=== PATIENT | male | born 1950 | race Caucasian/White ===

== ENCOUNTER → 2017-08-30 | Outpatient (CLI) | payer MEDICARE ==
[2017-08-30 19:52] LABS: Basophils # (A) 0.1 k/uL (0-0.2); Basophils % (A) 1 %; Eosinophils # (A) 0.2 k/uL (0-0.7); Eosinophils % (A) 4 %; HGB 13.8 gm/dL (13.0-17.5); Hypochromasia Slight; Lymphocytes % (A) 19 %; MCH 29.8 pg (25.0-35.0); MCHC 31.4 g/dL (31.0-37.0); MCV 94.9 fL (80.0-100.0); Mean Platelet Volume 8.2; Monocytes # (A) 0.4 k/uL (0-1.0); Monocytes % (A) 7 %; Neutrophils # (A) 3.7 k/uL (1.3-7.7); Neutrophils % (A) 67 %; Platelet Count 162 k/uL (150-450); RBC 4.63 m/uL (4.30-5.90); RDW 14.3 % (11.5-15.5); WBC 5.6 k/uL (3.8-10.6)
[2017-08-30 20:02] LABS: ALT 47 U/L (21-72); AST 27 U/L (17-59); Albumin 3.5 g/dL (3.5-5.0); Alkaline Phosphatase 82 U/L (38-126); Blood Urea Nitrogen 31 mg/dL (9-20); Calcium 9.1 mg/dL (8.4-10.2); Chloride 99 mmol/L (98-107); Cholesterol 191 mg/dL (<200); Glucose 84 mg/dL (74-99); HDL Cholesterol 48 mg/dL (40-60); LDL Cholesterol,Calculated 95 mg/dL (0-99); Potassium 4.4 mmol/L (3.5-5.1); Sodium 149 mmol/L (137-145); Total Bilirubin 0.3 mg/dL (0.2-1.3); Total Protein 5.9 g/dL (6.3-8.2); Triglycerides 242 mg/dL (<150)
[2017-08-30 20:06] LABS: INR 1.5 (<1.2)
[2017-08-30 20:07] LABS: Prothrombin Time 14.1 sec (9.0-12.0)
[2017-08-30 20:10] LABS: Anion Gap 8 mmol/L
[2017-08-30 20:18] LABS: T4, Free (Free Thyroxine) 1.05 ng/dL (0.78-2.19)
[2017-08-30 20:22] LABS: Carbon Dioxide 42 mmol/L (22-30)
[2017-08-30 20:32] LABS: PSA Annual Screen 4.13 ng/mL (0.00-4.00)
[2017-08-31 11:36] LABS: Vitamin D 25 Hydroxy 9.3 ng/mL (30.0-100.0)
== END | disposition home or self-care (01) ==
LOC: MMGSC 15:49
PROVIDERS: ATTEND Family Medicine
DX: E78.5 Hyperlipidemia, unspecified (principal); I10 Essential (primary) hypertension; I25.10 Atherosclerotic heart disease of native coronary artery without angina pectoris; R53.83 Other fatigue; Z12.5 Encounter for screening for malignant neoplasm of prostate; Z51.81 Encounter for therapeutic drug level monitoring; Z79.01 Long term (current) use of anticoagulants
CPT/HCPCS: 84439; 80053; 80061; 82607; 84443; 85025; 85610; 82306; 36415; G0103

== ENCOUNTER → 2017-09-05 | Outpatient (CLI) | payer MEDICARE ==
[2017-09-05 18:51] LABS: INR 2.6 (<1.2); Prothrombin Time 23.3 sec (9.0-12.0)
== END | disposition home or self-care (01) ==
LOC: MMGSC 15:04
PROVIDERS: ATTEND Family Medicine
DX: Z51.81 Encounter for therapeutic drug level monitoring (principal); Z79.01 Long term (current) use of anticoagulants
CPT/HCPCS: 36415; 85610

== ENCOUNTER → 2017-10-03 | Outpatient (CLI) | payer MEDICARE ==
[2017-10-03 19:00] LABS: INR 3.9 (<1.2); Prothrombin Time 34.6 sec (9.0-12.0)
== END | disposition home or self-care (01) ==
LOC: MMGSC 15:42
PROVIDERS: ATTEND Family Medicine
DX: Z51.81 Encounter for therapeutic drug level monitoring (principal); Z79.01 Long term (current) use of anticoagulants
CPT/HCPCS: 36415; 85610

== ENCOUNTER → 2017-10-11 | Outpatient (CLI) | payer MEDICARE ==
[2017-10-11 18:47] LABS: INR 1.8 (<1.2); Prothrombin Time 16.2 sec (9.0-12.0)
== END | disposition home or self-care (01) ==
LOC: MMGSC 14:50
PROVIDERS: ATTEND Family Medicine
DX: Z51.81 Encounter for therapeutic drug level monitoring (principal); Z79.01 Long term (current) use of anticoagulants
CPT/HCPCS: 36415; 85610

== ENCOUNTER → 2017-11-01 | Outpatient (CLI) | payer MEDICARE ==
[2017-11-01 19:47] LABS: INR 1.8 (<1.2); Prothrombin Time 16.2 sec (9.0-12.0)
[2017-11-01 19:53] LABS: Basophils # (A) 0.1 k/uL (0-0.2); Basophils % (A) 1 %; Eosinophils # (A) 0.2 k/uL (0-0.7); Eosinophils % (A) 3 %; HCT 45.7 % (39.0-53.0); HGB 15.3 gm/dL (13.0-17.5); Lymphocytes # (A) 1.3 k/uL (1.0-4.8); Lymphocytes % (A) 18 %; MCH 30.5 pg (25.0-35.0); MCHC 33.5 g/dL (31.0-37.0); Mean Platelet Volume 7.9; Monocytes # (A) 0.5 k/uL (0-1.0); Monocytes % (A) 7 %; Neutrophils # (A) 5.1 k/uL (1.3-7.7); Neutrophils % (A) 71 %; Platelet Count 185 k/uL (150-450); RBC 5.02 m/uL (4.30-5.90); RDW 13.4 % (11.5-15.5); WBC 7.3 k/uL (3.8-10.6)
[2017-11-01 19:55] LABS: Albumin 3.9 g/dL (3.5-5.0); Calcium 9.2 mg/dL (8.4-10.2); Potassium 4.2 mmol/L (3.5-5.1); Total Bilirubin 0.3 mg/dL (0.2-1.3); Total Protein 6.5 g/dL (6.3-8.2)
== END | disposition home or self-care (01) ==
LOC: MMGSC 17:29
PROVIDERS: ATTEND Family Medicine
DX: N39.0 Urinary tract infection, site not specified (principal); E55.9 Vitamin D deficiency, unspecified; E87.0 Hyperosmolality and hypernatremia; Z79.01 Long term (current) use of anticoagulants
CPT/HCPCS: 36415; 80053; 82306; 85025; 85610; 87086

== ENCOUNTER → 2017-11-27 | Outpatient (CLI) | payer MEDICARE ==
--- NOTE | 2017-11-27 11:27 | US ---
EXAMINATION TYPE: US carotid duplex BILAT DATE OF EXAM: 11/27/2017 COMPARISON: NONE CLINICAL HISTORY: 67-year-old male dizziness R42 Hx of CAD Z86.79. Pt having dizziness TECHNIQUE: Carotid duplex ultrasound examination. Indirect Doppler criteria was utilized. 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 IMPRESSION: 1. No hemodynamically significant ICA stenosis on either side. Mild narrowing may be present particul sania on the right. 2. Incidental 1.5 cm left thyroid nodule. Further assessment of the entire thyroid gland can be perfo rmed with dedicated thyroid ultrasound. Criteria for Assigning % of Stenosis / Diameter reduction (Estimation based on the indirect measurements of the internal carotid artery velocities (ICA PSV). 1. Normal (no stenosis)=ICA PSV < 125 cm/s: ratio < 2.0: ICA EDV<40 cm/s. 2. Less than 50% stenosis=ICA PSV < 125 cm/s: ratio < 2.0: ICA EDV<40 cm/s. 3. 50 to 69% stenosis=ICA PSV of 125 to 230 cm/s: ration 2.0 ? 4.0: ICA EDV 40-100 cm/s. 4. Greater than 70% stenosis to near occlusion= ICA PSV > 230 cm/s: ratio > 4.0: ICA EDV > 100 cm/s. 5. Near occlusion= ICA PSV velocities may be low or undetectable: variable ratio and ICA EDV. 6. Total occlusion=unable to detect flow.
== END | disposition home or self-care (01) ==
LOC: WWCWWP 10:11
PROVIDERS: ATTEND Family Medicine
DX: R42 Dizziness and giddiness (principal); Z86.79 Personal history of other diseases of the circulatory system
CPT/HCPCS: 93880

== ENCOUNTER 2017-12-08 21:58 | Observation (INO) | payer MEDICARE ==
[2017-12-08] MEDS ORDERED: NITROGLYCERIN OINT 1 INCH/GM PACKET TOPICAL STA (22:10)
[2017-12-08] MEDS ORDERED: ASPIRIN 81 MG PO STA (22:10)
--- NOTE | 2017-12-08 22:14 | ED ---
General Adult HPI - General Chief complaint: Chest Pain Stated complaint: Chest Pain Time Seen by Provider: 12/08/17 22:10 Source: patient, family, EMS, RN notes reviewed Mode of arrival: EMS Limitations: no limitations - History of Present Illness Initial comments: Patient is a pleasant 67-year-old male presenting to the emergency Department with chest discomfort. Onset of symptoms was just prior to arrival. Symptoms resolved with nitroglycerin by EMS. Patient does have a history of similar symptoms previously associated with cardiac disease. Patient did have some associated nausea. No dyspnea or diaphoresis. Patient is currently symptom- free. - Related Data Home Medications Medication Instructions Recorded Confirmed Aspirin 81 mg PO DAILY 12/08/17 12/08/17 Atorvastatin [Lipitor] 80 mg PO HS 12/08/17 12/08/17 Benztropine Mesylate [Cogentin] 1 mg PO DAILY 12/08/17 12/08/17 Carvedilol [Coreg] 12.5 mg PO BID 12/08/17 12/08/17 Finasteride [Proscar] 5 mg PO DAILY 12/08/17 12/08/17 Furosemide [Lasix] 40 mg PO DAILY 12/08/17 12/08/17 Glimepiride [Amaryl] 2 mg PO AC-BRKFST 12/08/17 12/08/17 Isosorbide Mononitrate ER [Imdur] 60 mg PO DAILY 12/08/17 12/08/17 Oxybutynin Chloride [Ditropan] 5 mg PO DAILY 12/08/17 12/08/17 Pantoprazole [Protonix] 40 mg PO QAM 12/08/17 12/08/17 Potassium Chloride [Klor-Con 20] 20 meq PO DAILY 12/08/17 12/08/17 QUEtiapine [SEROquel] 100 mg PO HS 12/08/17 12/08/17 Tamsulosin [Flomax] 0.4 mg PO DAILY 12/08/17 12/08/17 Warfarin [Coumadin] 5 mg PO DAILY 12/08/17 12/08/17 carBAMazepine [TEGretol XR] 200 mg PO Q12H 12/08/17 12/08/17 hydrALAZINE HCL [Apresoline] 50 mg PO TID 12/08/17 12/08/17 Allergies Allergy/AdvReac Type Severity Reaction Status Date / Time No Known Allergies Allergy Verified 12/08/17 22:50 Review of Systems ROS Statement: Those systems with pertinent positive or pertinent negative responses have been documented in the HPI. ROS Other: All systems not noted in ROS Statement are negative. Constitutional: Denies: fever Eyes: Denies: eye pain ENT: Denies: ear pain Respiratory: Denies: dyspnea Cardiovascular: Reports: chest pain Endocrine: Denies: fatigue Gastrointestinal: Reports: nausea. Denies: abdominal pain Genitourinary: Denies: dysuria, frequency Musculoskeletal: Denies: back pain (Chronic and unchanged) Skin: Denies: rash Neurological: Denies: weakness Past Medical History Past Medical History: Asthma, Diabetes Mellitus, Hypertension History of Any Multi-Drug Resistant Organisms: MRSA MDRO Source:: lungs Past Surgical History: Heart Catheterization With Stent Past Psychological History: Anxiety, Bipolar, Depression Smoking Status: Former smoker Past Alcohol Use History: Occasional Past Drug Use History: None Reported General Exam Limitations: no limitations General appearance: alert, in no apparent distress Head exam: Present: atraumatic Eye exam: Present: normal appearance, PERRL ENT exam: Present: normal oropharynx Neck exam: Present: normal inspection Respiratory exam: Present: normal lung sounds bilaterally. Absent: chest wall tenderness Cardiovascular Exam: Present: regular rate, normal rhythm Expanded Peripheral pulses: 2+: Radial (R), Radial (L), Posterior Tibialis (R), Posterior Tibialis (L) GI/Abdominal exam: Present: soft. Absent: distended, tenderness Extremities exam: Present: normal inspection. Absent: pedal edema, calf tenderness Back exam: Present: normal inspection Neurological exam: Present: alert Psychiatric exam: Present: normal affect, normal mood Skin exam: Present: normal color Course Vital Signs 12/08/17 12/08/17 22:03 23:07 Temperature 99.1 F Pulse Rate 94 86 Respiratory 20 20 Rate Blood Pressure 162/91 165/85 O2 Sat by Pulse 97 97 Oximetry EKG Findings - EKG Comments: EKG Findings:: Normal sinus rhythm 83. HI 182. QRS 78. QT 398. QTC 467. Left axis. Septal Q waves. Inferior Q waves. No acute ST change. Medical Decision Making - Medical Decision Making Patient reevaluated and updated. Case discussed with Dr. Gonzales, who will admit for Dr. Parks. - Lab Data Result diagrams: 12/08/17 22:06 12/08/17 22:06 Lab Results 12/08/17 12/08/17 12/08/17 Range/Units 22:06 22:06 22:06 WBC 9.4 (3.8-10.6) k/uL RBC 5.02 (4.30-5.90) m/uL Hgb 14.7 (13.0-17.5) gm/dL Hct 44.6 (39.0-53.0) % MCV 88.9 (80.0-100.0) fL MCH 29.4 (25.0-35.0) pg MCHC 33.1 (31.0-37.0) g/dL RDW 13.3 (11.5-15.5) % Plt Count 207 (150-450) k/uL Neutrophils % 70 % Lymphocytes % 18 % Monocytes % 6 % Eosinophils % 4 % Basophils % 0 % Neutrophils # 6.6 (1.3-7.7) k/uL Lymphocytes # 1.7 (1.0-4.8) k/uL Monocytes # 0.6 (0-1.0) k/uL Eosinophils # 0.4 (0-0.7) k/uL Basophils # 0.0 (0-0.2) k/uL PT (9.0-12.0) sec INR (<1.2) APTT (22.0-30.0) sec Sodium 143 (137-145) mmol/L Potassium 3.7 (3.5-5.1) mmol/L Chloride 94 L (98-107) mmol/L Carbon Dioxide 36 H (22-30) mmol/L Anion Gap 13 mmol/L BUN 30 H (9-20) mg/dL Creatinine 1.20 (0.66-1.25) mg/dL Est GFR (CKD-EPI)AfAm 72 (>60 ml/min/1.73 sqM) Est GFR (CKD-EPI)NonAf 62 (>60 ml/min/1.73 sqM) Glucose 117 H (74-99) mg/dL Plasma Lactic Acid Gil (0.7-2.0) mmol/L Calcium 9.2 (8.4-10.2) mg/dL Magnesium 1.5 L (1.6-2.3) mg/dL Total Bilirubin 0.5 (0.2-1.3) mg/dL AST 34 (17-59) U/L ALT 30 (21-72) U/L Alkaline Phosphatase 102 (38-126) U/L Total Creatine Kinase 142 (55-170) U/L CK-MB (CK-2) 1.8 (0.0-2.4) ng/mL CK-MB (CK-2) Rel Index 1.3 Troponin I <0.012 (0.000-0.034) ng/mL Total Protein 6.3 (6.3-8.2) g/dL Albumin 4.0 (3.5-5.0) g/dL 12/08/17 12/08/17 Range/Units 22:06 22:06 WBC (3.8-10.6) k/uL RBC (4.30-5.90) m/uL Hgb (13.0-17.5) gm/dL Hct (39.0-53.0) % MCV (80.0-100.0) fL MCH (25.0-35.0) pg MCHC (31.0-37.0) g/dL RDW (11.5-15.5) % Plt Count (150-450) k/uL Neutrophils % % Lymphocytes % % Monocytes % % Eosinophils % % Basophils % % Neutrophils # (1.3-7.7) k/uL Lymphocytes # (1.0-4.8) k/uL Monocytes # (0-1.0) k/uL Eosinophils # (0-0.7) k/uL Basophils # (0-0.2) k/uL PT 13.5 H (9.0-12.0) sec INR 1.5 H (<1.2) APTT 25.9 (22.0-30.0) sec Sodium (137-145) mmol/L Potassium (3.5-5.1) mmol/L Chloride (98-107) mmol/L Carbon Dioxide (22-30) mmol/L Anion Gap mmol/L BUN (9-20) mg/dL Creatinine (0.66-1.25) mg/dL Est GFR (CKD-EPI)AfAm (>60 ml/min/1.73 sqM) Est GFR (CKD-EPI)NonAf (>60 ml/min/1.73 sqM) Glucose (74-99) mg/dL Plasma Lactic Acid Gil 0.9 (0.7-2.0) mmol/L Calcium (8.4-10.2) mg/dL Magnesium (1.6-2.3) mg/dL Total Bilirubin (0.2-1.3) mg/dL AST (17-59) U/L ALT (21-72) U/L Alkaline Phosphatase (38-126) U/L Total Creatine Kinase (55-170) U/L CK-MB (CK-2) (0.0-2.4) ng/mL CK-MB (CK-2) Rel Index Troponin I (0.000-0.034) ng/mL Total Protein (6.3-8.2) g/dL Albumin (3.5-5.0) g/dL - Radiology Data Radiology results: image reviewed (Chest x-ray shows no acute process) Disposition Clinical Impression: Chest pain Disposition: ADMITTED IP TO THIS HOSP Is patient prescribed a controlled substance at d/c from ED?: No Referrals: Cintia Sarmiento MD [Primary Care Provider] - 1-2 days Decision Time: 00:08
[2017-12-08 22:27] LABS: Basophils % (A) 0 %; Eosinophils # (A) 0.4 k/uL (0-0.7); Eosinophils % (A) 4 %; HCT 44.6 % (39.0-53.0); HGB 14.7 gm/dL (13.0-17.5); Lymphocytes # (A) 1.7 k/uL (1.0-4.8); Lymphocytes % (A) 18 %; MCH 29.4 pg (25.0-35.0); MCHC 33.1 g/dL (31.0-37.0); MCV 88.9 fL (80.0-100.0); Mean Platelet Volume 7.6; Monocytes # (A) 0.6 k/uL (0-1.0); Monocytes % (A) 6 %; Neutrophils # (A) 6.6 k/uL (1.3-7.7); Neutrophils % (A) 70 %; Platelet Count 207 k/uL (150-450); RBC 5.02 m/uL (4.30-5.90); RDW 13.3 % (11.5-15.5); WBC 9.4 k/uL (3.8-10.6)
[2017-12-08 22:34] LABS: Calcium 9.2 mg/dL (8.4-10.2); Magnesium 1.5 mg/dL (1.6-2.3); Potassium 3.7 mmol/L (3.5-5.1); Total Bilirubin 0.5 mg/dL (0.2-1.3); Total Protein 6.3 g/dL (6.3-8.2)
[2017-12-08 22:37] LABS: INR 1.5 (<1.2); Partial Thromboplastin Time 25.9 sec (22.0-30.0); Prothrombin Time 13.5 sec (9.0-12.0)
--- NOTE | 2017-12-08 22:52 | XR ---
EXAMINATION TYPE: XR chest 2V DATE OF EXAM: 12/08/2017 COMPARISON: NONE HISTORY: Chest pain TECHNIQUE: Frontal and lateral views of the chest are obtained. FINDINGS: There is no heart failure nor confluent pneumonic infiltrate. Costophrenic angles are demario r. Heart appears slightly enlarged. There are chest leads. Bony thorax is intact. IMPRESSION: No active cardiopulmonary disease.
[2017-12-08 22:53] LABS: Creatine Kinase 142 U/L (55-170)
[2017-12-08 23:04] LABS: Creatine Kinase MB 1.8 ng/mL (0.0-2.4); Troponin I <0.012 ng/mL (0.000-0.034)
[2017-12-09] MEDS ORDERED: NITROGLYCERIN SL TABS 0.4 MG TAB SUBLINGUAL PRN (00:08)
[2017-12-09 02:03] VITALS: BMI 33.8
[2017-12-09] MEDS ORDERED: MAGNESIUM SULFATE-D5W PMX 1 GM in DEXTROSE/WATER 1 100ML.BAG IVPB ONE (02:59)
[2017-12-09 03:48] LABS: Creatine Kinase 189 U/L (55-170)
--- NOTE | 2017-12-09 03:59 | P.HPIM ---
History of Present Illness H&P Date: 12/09/17 Chief Complaint: Chest pain 67-year-old male with history of CAD. Patient presented to the hospital due to sudden onset chest pain. He reports that he was cleaning an accident in the bathroom when suddenly felt felt retrosternal chest pressure rated at 10 out of 10 in severity radiating to his neck and shoulder associated with trouble breathing, diaphoresis, nausea and vomiting once. He initially rested in the bathroom but then was able to gather himself and get to the living room. He then put on his oxygen and started watching his pulse oximetry as he thought this is lack of oxygen, and took some aspirin but he did not get complete relief of his pain until EMS arrived and gave him nitro paste. This lasted for 20 minutes. This was not his first episode he said he had other episodes in the past however he was not keen enough to go over details. He does admit to orthopnea and paroxysmal nocturnal dyspnea but denies any leg swelling. He is oxygen dependent and uses 3 L of oxygen through nasal cannula for his history of COPD. Otherwise patient is denying any coughing, wheezing, fevers or chills. 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 Review of Systems Constitutional: Patient denies fever, denies chills, denies night sweating, denies significant weight changes Eyes: Patient denies visual changes, denies eye pain ENT: Patient denies ear pain, denies rhinorrhea, denies sore throat Cardiovascular: As per HPI Respiratory:Patient denies cough, denies wheezing Gastrointestinal: Patient denies diarrhea, reports constipation, denies abdominal pain Genitourinary: Patient denies dysuria, denies hematuria, reports difficulty with urination due to prostate issues, denies genital lesions Musculoskeletal: Patient denies muscle pain, denies joint pain Psychiatric: Patient reports depressed mood, denies suicidal ideation, denies anxiety Endocrine: Patient denies heat intolerance, denies cold intolerance, denies excessive thirst, denies polyuria Neurological: Patient denies focal neurologic deficits, denies weakness, denies numbness, denies tingling Hem/Lymphatic: Patient denies bleeding tendency, denies bruising, denies swollen lymph glands Allergic/Immun: Patient denies recent allergic reactions Skin: Patient denies rashes, denies pruritis, denies ulcers Past Medical History Past Medical History: Heart Failure, COPD, Diabetes Mellitus, Deep Vein Thrombosis (DVT), Hyperlipidemia, Hypertension, Memory Impairment, Osteoarthritis (OA), Pneumonia, Prostate Disorder, Pulmonary Embolus (PE), Sleep Apnea/CPAP/BIPAP Additional Past Medical History / Comment(s): DVT and PE - pt unsure of how long ago - he is on coumadin History of Any Multi-Drug Resistant Organisms: MRSA Date of last positivie culture/infection: unsure thinks 2-3 years ago MDRO Source:: lungs/legs Past Surgical History: Heart Catheterization With Stent Additional Past Surgical History / Comment(s): 1 stent - pt unsure of exact year thinks over 5 yrs ago - pt states done at [facility] Past Anesthesia/Blood Transfusion Reactions: No Reported Reaction Date of Last Stent Placement:: unsure Past Psychological History: Anxiety, Bipolar, Depression Smoking Status: Former smoker Past Alcohol Use History: Rare Additional Past Alcohol Use History / Comment(s): pt states started smoking as a kid cant remember exactly when or exactly when quit - poor historian Past Drug Use History: None Reported - Past Family History Mother Family Medical History: Myocardial Infarction (ME) Father Family Medical History: Renal Disease Additional Family Medical History / Comment(s): renal disease Medications and Allergies Home Medications Medication Instructions Recorded Confirmed Type Aspirin 81 mg PO DAILY 12/08/17 12/08/17 History Atorvastatin [Lipitor] 80 mg PO HS 12/08/17 12/08/17 History Benztropine Mesylate [Cogentin] 1 mg PO DAILY 12/08/17 12/08/17 History Carvedilol [Coreg] 12.5 mg PO BID 12/08/17 12/08/17 History Finasteride [Proscar] 5 mg PO DAILY 12/08/17 12/08/17 History Furosemide [Lasix] 40 mg PO DAILY 12/08/17 12/08/17 History Glimepiride [Amaryl] 2 mg PO AC-BRKFST 12/08/17 12/08/17 History Isosorbide Mononitrate ER [Imdur] 60 mg PO DAILY 12/08/17 12/08/17 History Oxybutynin Chloride [Ditropan] 5 mg PO DAILY 12/08/17 12/08/17 History Pantoprazole [Protonix] 40 mg PO QAM 12/08/17 12/08/17 History Potassium Chloride [Klor-Con 20] 20 meq PO DAILY 12/08/17 12/08/17 History QUEtiapine [SEROquel] 100 mg PO HS 12/08/17 12/08/17 History Tamsulosin [Flomax] 0.4 mg PO DAILY 12/08/17 12/08/17 History Warfarin [Coumadin] 5 mg PO DAILY 12/08/17 12/08/17 History carBAMazepine [TEGretol XR] 200 mg PO Q12H 12/08/17 12/08/17 History hydrALAZINE HCL [Apresoline] 50 mg PO TID 12/08/17 12/08/17 History Allergies Allergy/AdvReac Type Severity Reaction Status Date / Time No Known Allergies Allergy Verified 12/08/17 22:50 Physical Exam Vitals: Vital Signs Temp Pulse Pulse Resp BP BP Pulse Ox 12/09/17 01:30 98.5 F 90 16 162/85 95 12/09/17 00:50 98.7 F 88 18 177/81 97 12/09/17 00:00 98.6 F 82 20 168/82 95 12/08/17 23:07 86 20 165/85 97 12/08/17 22:03 99.1 F 94 20 162/91 97 Intake and Output 12/08/17 12/08/17 12/09/17 14:59 22:59 06:59 Other: Weight 95.254 kg 95.2 kg Constitutional: No acute distress, conversant, pleasant Eyes: Anicteric sclerae, moist conjunctiva, no lid-lag Pupils equal round reactive to light ENMT: NC/AT Oropharynx clear, no erythema, no exudates Neck: Supple, FROM, no masses, or JVD No carotid bruits No thyromegaly Lungs: Clear to auscultation Clear to percussion Normal respiratory effort, no accessory muscle use Nitro paste on his left side of the chest Cardiovascular: Heart regular in rate and rhythm, No murmurs, gallops, or rubs No peripheral edema Abdominal: Soft Nontender, no guarding, rebound or rigidity Abdomen moving with respiration Normoactive bowel sounds No hepatomegaly, No splenomegaly No palpable mass No abdominal wall hernia noted Skin: Large birthmark on anterior and posterior part of his left shoulder Normal temperature, tone, texture, turgor No induration No subcutaneous nodules No rash, lesions No ulcers Extremities: No digital cyanosis No clubbing Pedal pulses intact and symmetrical Radial pulses intact and symmetrical No calf tenderness Psychiatric: Alert and oriented to person, place Flat affect fair judgment Neuro Muscles Strength 5/5 in all 4 extremities Sensation to light touch grossly present throughout Cranial nerves II-XII grossly intact No focal sensory deficits Lymphatics: no palpable cervical or supraclavicular , or inguinal lymph nodes Results CBC & Chem 7: 12/08/17 22:06 12/08/17 22:06 Labs: Abnormal Lab Results - Last 24 Hours (Table) 12/08/17 12/08/17 Range/Units 22:06 22:06 PT 13.5 H (9.0-12.0) sec INR 1.5 H (<1.2) Chloride 94 L (98-107) mmol/L Carbon Dioxide 36 H (22-30) mmol/L BUN 30 H (9-20) mg/dL Glucose 117 H (74-99) mg/dL Magnesium 1.5 L (1.6-2.3) mg/dL Thrombosis Risk Factor Assmnt - Choose All That Apply Each Factor Represents 1 point: Abnormal pulmonary function (COPD) Each Risk Factor Represents 2 Points: Age 61-74 years Each Risk Factor Represents 3 Points: Family history of DVT/PE Thrombosis Risk Factor Assessment Total Risk Factor Score: 6 Thrombosis Risk Factor Assessment Level: High Risk Assessment and Plan Assessment: 67-year-old male with history of CAD, COPD oxygen dependent, presented to the hospital due to sudden onset chest pain while cleaning the bathroom. Chest pain is of typical features, and currently admitted under observation for cardiology evaluation. EKG revision suggested some Q waves(infarcts) and inferior and septal leads, however of unknown age there is no previous EKGs for comparison. Cardiac enzymes are negative so far Plan: #Typical chest pain Continue with Nitropaste Continue with aspirin and statin Continue home cardiac medications Cardiac monitoring Cycle cardiac enzymes Await cardiology input #Hypomagnesemia Replace IV and follow-up levels #Known history of CAD status post stents Continue home cardiac medications #History of multiple VTE Continue with Coumadin dosing by pharmacy Goal INR 2-3 #Chronic COPD on home oxygen 3 L through nasal cannula Continue with DuoNeb's when necessary Continue with home oxygen Chronic issues #Obstructive sleep apnea #Obesity #Hypertension #Diabetes mellitus #Depression #DVT prophylaxis Patient on Coumadin for history of DVT Surrogate decision-maker: Patient daughter Julisa CODE STATUS: Full code Discussed with: Patient, ER, RN Anticipated discharge: <[address]: Home A total of 55 minutes were spent on the care of this complex patient more than 50% of the time was spent in counseling and care coordination.
[2017-12-09 04:02] LABS: Creatine Kinase MB 1.5 ng/mL (0.0-2.4); Troponin I <0.012 ng/mL (0.000-0.034)
[2017-12-09] MEDS ORDERED: NALOXONE 0.4 MG/ML 1 ML VIAL IV PRN (04:02)
[2017-12-09] MEDS: NITROGLYCERIN OINT 1 INCH/GM PACKET TOPICAL SCH ×3 (05:25→18:08)
[2017-12-09] MEDS: IPRATROPIUM-ALBUTEROL 3 ML NEB INHALATION PRN ×4 (07:19→19:36)
[2017-12-09 07:34] LABS: Glucose,Whole Blood 127 mg/dL (75-99)
[2017-12-09 08:14] LABS: Cholesterol 200 mg/dL (<200); HDL Cholesterol 30 mg/dL (40-60); LDL Cholesterol,Calculated 127 mg/dL (0-99); Triglycerides 217 mg/dL (<150)
[2017-12-09] MEDS: INSULIN ASPART 100 UNIT/ML 1 ML 10 ML VIAL SQ SCH ×4 (08:44→21:13)
[2017-12-09] MEDS ORDERED: ISOSORBIDE MONONITRATE ER 60 MG TAB.ER.24H PO SCH (09:00)
--- NOTE | 2017-12-09 10:22 | P.CRDCN ---
History of Present Illness Consult date: 12/09/17 Requesting physician: Brook Maza Consult reason: chest pain Chief complaint: Nausea vomiting and chest pain History of present illness: As a 67-year-old gentleman with history of hypertension, hyperlipidemia, diabetes, coronary artery disease with prior stent placement, exact details of that are unavailable. He states he had a stent placed multiple years ago he thinks it was in the [place] area. Patient is not very clear in general on his history. He states that he presented to the hospital with symptoms of chest heaviness. According to the patient he had done some cleaning up, states that he had spilled some urine and was cleaning that up when he shortly became nauseated and started vomiting. Shortly thereafter he states that he had a heavy feeling in his chest, he felt mildly short of breath and diaphoretic and for this reason came to the emergency room for further evaluation. EKG shows normal sinus rhythm with inferior Q waves. Chest x-ray normal. CBC is normal. Sodium 143, potassium 3.7, BUN 30, creatinine 1.2. Troponins 2 have been negative, magnesium on admission 1.5, 1.6 this morning. Cholesterol 200 LDL 127 triglycerides 217 and HDL 30. At the time of my examination this morning, patient no longer has any chest discomfort, he is complaining of mild mid abdominal discomfort. Past Medical History Past Medical History: Heart Failure, COPD, Diabetes Mellitus, Deep Vein Thrombosis (DVT), Hyperlipidemia, Hypertension, Memory Impairment, Osteoarthritis (OA), Pneumonia, Prostate Disorder, Pulmonary Embolus (PE), Sleep Apnea/CPAP/BIPAP Additional Past Medical History / Comment(s): DVT and PE - pt unsure of how long ago - he is on coumadin History of Any Multi-Drug Resistant Organisms: MRSA Date of last positivie culture/infection: unsure thinks 2-3 years ago MDRO Source:: lungs/legs Past Surgical History: Heart Catheterization With Stent Additional Past Surgical History / Comment(s): 1 stent - pt unsure of exact year thinks over 5 yrs ago - pt states done at [facility] Past Anesthesia/Blood Transfusion Reactions: No Reported Reaction Date of Last Stent Placement:: unsure Past Psychological History: Anxiety, Bipolar, Depression Smoking Status: Former smoker Past Alcohol Use History: Rare Additional Past Alcohol Use History / Comment(s): pt states started smoking as a kid cant remember exactly when or exactly when quit - poor historian Past Drug Use History: None Reported - Past Family History Mother Family Medical History: Myocardial Infarction ([place]) Father Family Medical History: Renal Disease Additional Family Medical History / Comment(s): renal disease Medications and Allergies Home Medications Medication Instructions Recorded Confirmed Type Aspirin 81 mg PO DAILY 12/08/17 12/08/17 History Atorvastatin [Lipitor] 80 mg PO HS 12/08/17 12/08/17 History Benztropine Mesylate [Cogentin] 1 mg PO DAILY 12/08/17 12/08/17 History Carvedilol [Coreg] 12.5 mg PO BID 12/08/17 12/08/17 History Finasteride [Proscar] 5 mg PO DAILY 12/08/17 12/08/17 History Furosemide [Lasix] 40 mg PO DAILY 12/08/17 12/08/17 History Glimepiride [Amaryl] 2 mg PO AC-BRKFST 12/08/17 12/08/17 History Isosorbide Mononitrate ER [Imdur] 60 mg PO DAILY 12/08/17 12/08/17 History Oxybutynin Chloride [Ditropan] 5 mg PO DAILY 12/08/17 12/08/17 History Pantoprazole [Protonix] 40 mg PO QAM 12/08/17 12/08/17 History Potassium Chloride [Klor-Con 20] 20 meq PO DAILY 12/08/17 12/08/17 History QUEtiapine [SEROquel] 100 mg PO HS 12/08/17 12/08/17 History Tamsulosin [Flomax] 0.4 mg PO DAILY 12/08/17 12/08/17 History Warfarin [Coumadin] 5 mg PO DAILY 12/08/17 12/08/17 History carBAMazepine [TEGretol XR] 200 mg PO Q12H 12/08/17 12/08/17 History hydrALAZINE HCL [Apresoline] 50 mg PO TID 12/08/17 12/08/17 History Allergies Allergy/AdvReac Type Severity Reaction Status Date / Time No Known Allergies Allergy Verified 12/08/17 22:50 Physical Exam Vitals: Vital Signs Temp Pulse Pulse Resp BP BP Pulse Ox 12/09/17 08:00 98.2 F 81 14 166/79 97 12/09/17 07:31 83 12/09/17 07:20 80 97 12/09/17 04:00 98.0 F 78 16 144/72 97 12/09/17 01:30 98.5 F 90 16 162/85 95 12/09/17 00:50 98.7 F 88 18 177/81 97 12/09/17 00:00 98.6 F 82 20 168/82 95 12/08/17 23:07 86 20 165/85 97 12/08/17 22:03 99.1 F 94 20 162/91 97 Intake and Output 12/08/17 12/09/17 12/09/17 22:59 06:59 14:59 Other: Voiding Method Toilet Toilet Urinal Urinal # Voids 1 Weight 95.254 kg 95.8 kg PHYSICAL EXAMINATION: HEENT: Head is atraumatic, normocephalic. Pupils equal, round. Neck is supple. There is no elevated jugular venous pressure. HEART EXAMINATION: Heart S1, S2 normal. No murmur or gallop heard. CHEST EXAMINATION: Lungs are clear to auscultation and precussion. No chest wall tenderness is noted on palpation or with deep breathing. ABDOMEN: [ Soft, mild midepigastric tenderness . Bowel sounds are heard. No organomegaly noted]. EXTREMITIES:[ 2+ peripheral pulses with no evidence of peripheral edema and no calf tenderness noted]. NEUROLOGIC [patient is awake, alert and oriented -3.] . Results 12/08/17 22:06 12/08/17 22:06 Cardiac Enzymes 12/08/17 12/08/17 12/09/17 Range/Units 22:06 22:06 03:05 AST 34 (17-59) U/L CK-MB (CK-2) 1.8 1.5 (0.0-2.4) ng/mL Troponin I <0.012 <0.012 (0.000-0.034) ng/mL Coagulation 12/08/17 Range/Units 22:06 PT 13.5 H (9.0-12.0) sec APTT 25.9 (22.0-30.0) sec Lipids 12/09/17 Range/Units 03:05 Triglycerides 217 H (<150) mg/dL Cholesterol 200 H (<200) mg/dL HDL Cholesterol 30 L (40-60) mg/dL CBC 12/08/17 Range/Units 22:06 WBC 9.4 (3.8-10.6) k/uL RBC 5.02 (4.30-5.90) m/uL Hgb 14.7 (13.0-17.5) gm/dL Hct 44.6 (39.0-53.0) % Plt Count 207 (150-450) k/uL Comprehensive Metabolic Panel 12/08/17 Range/Units 22:06 Sodium 143 (137-145) mmol/L Potassium 3.7 (3.5-5.1) mmol/L Chloride 94 L (98-107) mmol/L Carbon Dioxide 36 H (22-30) mmol/L BUN 30 H (9-20) mg/dL Creatinine 1.20 (0.66-1.25) mg/dL Glucose 117 H (74-99) mg/dL Calcium 9.2 (8.4-10.2) mg/dL AST 34 (17-59) U/L ALT 30 (21-72) U/L Alkaline Phosphatase 102 (38-126) U/L Total Protein 6.3 (6.3-8.2) g/dL Albumin 4.0 (3.5-5.0) g/dL Current Medications Generic Name Dose Route Start Last Admin Trade Name Freq PRN Reason Stop Dose Admin Albuterol/Ipratropium 3 ml 12/09/17 03:40 12/09/17 07:19 Duoneb 0.5 Mg-3 Mg/3 Ml Soln INHALATION 3 ml RT-QID PRN Administration Shortness Of Breath Or Wheezing Aspirin 325 mg 12/10/17 09:00 Aspirin PO DAILY [facility] Atorvastatin Calcium 80 mg 12/09/17 21:00 Lipitor PO HS JR Benztropine Mesylate 1 mg 12/09/17 09:00 Cogentin PO DAILY JR Carbamazepine 200 mg 12/09/17 03:00 12/09/17 04:12 Tegretol Xr PO 200 mg Q12H JR Administration Carvedilol 12.5 mg 12/09/17 09:00 Coreg PO BID JR Finasteride 5 mg 12/09/17 09:00 Proscar PO DAILY [facility] Heparin Sodium (Porcine) 5,000 unit 12/09/17 08:00 Heparin SQ Q8HR [facility] Hydralazine HCl 50 mg 12/09/17 09:00 Apresoline PO TID [facility] Insulin Aspart 0 unit 12/09/17 07:30 12/09/17 08:44 Novolog SQ Not Given ACHS [facility] Protocol Miscellaneous Information 1 each 12/09/17 04:02 Coumadin Per Pharmacy MISCELLANE DIRECTED PRN protocol Naloxone HCl 0.2 mg 12/09/17 04:02 Narcan IV Q2M PRN Opioid Reversal Nitroglycerin 1 inch 12/09/17 06:00 12/09/17 05:25 Nitro-Bid Oint TOPICAL Not Given Q6HR [facility] Nitroglycerin 0.4 mg 12/09/17 00:08 Nitrostat SUBLINGUAL Q5M PRN Chest Pain Oxybutynin Chloride 5 mg 12/09/17 09:00 Ditropan PO DAILY [facility] Pantoprazole Sodium 40 mg 12/09/17 09:00 Protonix PO QAM [facility] Quetiapine Fumarate 100 mg 12/09/17 21:00 Seroquel PO HS [facility] Tamsulosin HCl 0.4 mg 12/09/17 09:00 Flomax PO DAILY [facility] Warfarin Sodium 7.5 mg 12/09/17 18:00 Coumadin PO 12/09/17 18:01 ONCE@1800 ONE Intake and Output 12/08/17 12/09/17 12/09/17 22:59 06:59 14:59 Other: Voiding Method Toilet Toilet Urinal Urinal # Voids 1 Weight 95.254 kg 95.8 kg 12/08/17 22:06 12/08/17 22:06 EKG Interpretations (text) EKG shows normal sinus rhythm with inferior Q waves. Assessment and Plan Plan: Assessment and plan #1 chest pain, atypical for acute coronary syndrome. Troponins negative 2. EKG shows normal sinus rhythm with inferior Q waves #2 hypertension #3 hyperlipidemia #4 diabetes # 5 coronary artery disease with prior stent placement, exact details unavailable. #6 history of DVT and PE, on Coumadin, patient is unsure of how long ago he was diagnosed with DVT and PE #7 COPD #8 sleep apnea Plan We will obtain an echocardiogram with Doppler study. Decrease aspirin to 81 mg daily, continue statin, Coreg, hydralazine, and Nitropaste. We will obtain a third troponin. If negative, from cardiology's perspective the patient may be able to be discharged home tomorrow and have a stress test as an outpatient. DNP note has been reviewed, I agree with a documented findings and plan of care. Patient was seen and examined.
[2017-12-09] MEDS: TAMSULOSIN 0.4 MG CAP.ER.24H PO SCH (10:48)
[2017-12-09] MEDS: CARVEDILOL 12.5 MG TAB PO SCH ×2 (10:48→20:31)
[2017-12-09] MEDS: BENZTROPINE MESYLATE 1 MG TAB PO SCH (10:48)
[2017-12-09] MEDS: HEPARIN SODIUM,PORCINE 5,000 UNIT/ML 1 ML VIAL SQ SCH ×2 (10:48→15:40)
[2017-12-09] MEDS: hydrALAZINE HCL 50 MG TAB PO SCH ×3 (10:48→20:31)
[2017-12-09] MEDS: FINASTERIDE 5 MG TAB PO SCH (10:48)
[2017-12-09] MEDS: OXYBUTYNIN CHLORIDE 5 MG TAB PO SCH (10:49)
[2017-12-09] MEDS: PANTOPRAZOLE 40 MG TABLET PO SCH (10:49)
[2017-12-09 11:21] LABS: Creatine Kinase MB 1.9 ng/mL (0.0-2.4); Troponin I 0.017 ng/mL (0.000-0.034)
--- NOTE | 2017-12-09 11:47 | P.PN ---
Progress Note - Text Progress Note Date: 12/09/17 Hospitalist Interval Note Patient seen and examined at bedside. He's not having any chest pain, shortness of breath, nausea, or vomiting. He states that yesterday he was going to the bathroom made a mess and bent over to clean it up. He wiped some on his face and then had chest pain associated with shortness of breath, diaphoresis, and nausea. He vomited 1. He has not had any recurrent shortness of breath since presenting to the emergency department. He states that he had a similar episode when he was in the assisted living. It appears that he was in an assisted-living for 17 months. He had gone there because his physician was concerned about him getting sick frequently. Apparently he left the assisted living due to financial reasons. He now up lives his own and his daughter gives him his medications. Vital signs reviewed General: non toxic, no distress, appears at stated age, obese Derm: warm, dry Head: atraumatic, normocephalic, symmetric Eyes: EOMI, no lid lag, anicteric sclera Mouth: no lip lesion, mucus membranes moist Cardiovascular: S1S2 reg, no murmur, positive posterior tibial pulse bilateral, Lungs: CTA bilateral, no rhonchi, no rales , no accessory muscle use Abdominal: soft, nontender to palpation, no guarding, no appreciable organomegaly Ext: no gross muscle atrophy, no edema, no contractures Neuro: CN II-XI grossly intact, no focal neuro deficits Psych: Alert, oriented, appropriate affect , slow thinking Assessment/Plan: Chest pain -Await repeat troponin -Nitropaste, aspirin, statin -Continue home cardiac meds -Cardiology recommendations appreciated, echocardiogram ordered -Continue with telemetry Hypomagnesemia -Repeat magnesium improved -Repeat magnesium in a.m. Known history of coronary artery disease status post stenting -Aspirin on discharge -Not chronically on Plavix but does take Coumadin -Lipitor, Coreg History of multiple venous thromboembolism -Coumadin therapy as dosed by pharmacy with a goal INR of 2-3 Chronic COPD with home oxygen use at 3 L nasal cannula -When necessary DuoNeb's -Oxygen Diabetes mellitus type 2 -Amaryl on hold -Insulin sliding scale -Check hemoglobin A1c BPH -Pro scar and Flomax Morbid obesity -Structured outpatient weight loss Chronic issues -MALLY -Obesity -Hypertension -Depression This is an update note for patient , for full note on 4/28 see H&P by Dr. Maza. There is no charge associated with this note.
[2017-12-09 11:58] LABS: Hemoglobin A1C 6.2 % (4.0-6.0)
[2017-12-09 11:59] LABS: Glucose,Whole Blood 204 mg/dL (75-99)
--- NOTE | 2017-12-09 14:10 | ECHOF ---
Referral Reason:chest pain MEASUREMENTS -------- HEIGHT: 167.6 cm WEIGHT: 95.7 kg BP: 166/79 IVSd: 1.2 cm (0.6 - 1.1) LVIDd: 3.6 cm (3.9 - 5.3) LVPWd: 1.3 cm (0.6 - 1.1) EDV(Teich): 54 ml IVSs: 1.6 cm LVIDs: 2.0 cm LVPWs: 1.8 cm ESV(Teich): 12 ml EF(Teich): 77 % %FS: 45 % SV(Teich): 42 ml RVIDd: 3.0 cm (< 3.3) LALs A4C: 6.0 cm LAAs A4C: 18.5 cm LAESV A-L A4C: 49 ml LAESV MOD A4C: 47 ml LALs A2C: 4.9 cm LAAs A2C: 14.3 cm LAESV A-L A2C: 35 ml LAESV MOD A2C: 33 ml LAESV(A-L): 46 ml LAESV Index (A-L): 22.27 ml/m Ao Diam: 3.6 cm (2.0 - 3.7) LA Diam: 3.9 cm (2.7 - 3.8) AV Cusp: 1.9 cm (1.5 - 2.6) MV E [place]: 0.59 m/s MV DecT: 311 ms MV Dec [place]: 1.9 m/s MV A [place]: 0.81 m/s MV E/A Ratio: 0.74 AV Vmax: 1.48 m/s AV maxP.71 mmHg TR Vmax: 1.54 m/s TR maxP.44 mmHg RAP: 5.00 mmHg RVSP: 14.44 mmHg FINDINGS -------- Sinus rhythm. This was a technically adequate study. The left ventricular size is normal. There is mild concentric left ventricular hypertrophy. Overa ll left ventricular systolic function is normal with, an EF between 55 - 60 %. The right ventricle is normal in size and function. Normal LA size by volume 22+/-6 ml/m2. The right atrium is normal in size. There is mild aortic valve sclerosis. There is no evidence of aortic regurgitation. There is no e vidence of aortic stenosis. Mild mitral annular calcification present. There is trace to mild mitral regurgitation. Trace tricuspid regurgitation present. Right ventricular systolic pressure is normal at < 35 mmHg. There is no evidence of pulmonary hypertension. The pulmonic valve was not well visualized. The aortic root size is normal. Normal inferior vena cava with normal inspiratory collapse consistent with estimated right atrial pre ssure of 5 mmHg. There is a small, generalized pericardial effusion present. CONCLUSIONS -------- 1. Sinus rhythm. 2. This was a technically adequate study. 3. The left ventricular size is normal. 4. There is mild concentric left ventricular hypertrophy. 5. Overall left ventricular systolic function is normal with, an EF between 55 - 60 %. 6. Normal LA size by volume 22+/-6 ml/m2. 7. There is mild aortic valve sclerosis. 8. Mild mitral annular calcification present. 9. There is trace to mild mitral regurgitation. 10. Trace tricuspid regurgitation present. 11. Right ventricular systolic pressure is normal at < 35 mmHg. 12. There is no evidence of pulmonary hypertension. 13. The pulmonic valve was not well visualized. 14. The aortic root size is normal. 15. There is a small, generalized pericardial effusion present. FISH CULTURIST: Britton Valentine RDCS
[2017-12-09 17:04] LABS: Glucose,Whole Blood 94 mg/dL (75-99)
[2017-12-09] MEDS ORDERED: WARFARIN 7.5 MG TAB PO ONE (18:00)
[2017-12-09] MEDS ORDERED: QUEtiapine 100 MG TAB PO SCH (21:00)
[2017-12-09] MEDS ORDERED: INSULIN DETEMIR 100 UNIT/ML 10 ML VIAL SQ SCH (21:00)
[2017-12-09] MEDS ORDERED: ATORVASTATIN 80 MG TAB PO SCH (21:00)
[2017-12-09 21:10] LABS: Glucose,Whole Blood 143 mg/dL (75-99)
[2017-12-10] MEDS: HEPARIN SODIUM,PORCINE 5,000 UNIT/ML 1 ML VIAL SQ SCH ×2 (02:50→08:48)
[2017-12-10] MEDS: NITROGLYCERIN OINT 1 INCH/GM PACKET TOPICAL SCH ×3 (02:51→13:16)
[2017-12-10 05:54] VITALS: RESP 16
[2017-12-10 06:52] LABS: Glucose,Whole Blood 98 mg/dL (75-99)
[2017-12-10 07:16] LABS: Basophils % (A) 1 %; Eosinophils # (A) 0.4 k/uL (0-0.7); Eosinophils % (A) 6 %; HCT 42.7 % (39.0-53.0); HGB 14.3 gm/dL (13.0-17.5); Lymphocytes # (A) 1.4 k/uL (1.0-4.8); Lymphocytes % (A) 21 %; MCH 30.3 pg (25.0-35.0); MCHC 33.5 g/dL (31.0-37.0); MCV 90.4 fL (80.0-100.0); Mean Platelet Volume 7.9; Monocytes # (A) 0.5 k/uL (0-1.0); Monocytes % (A) 7 %; Neutrophils # (A) 4.3 k/uL (1.3-7.7); Neutrophils % (A) 64 %; Platelet Count 154 k/uL (150-450); RBC 4.73 m/uL (4.30-5.90); RDW 13.2 % (11.5-15.5); WBC 6.7 k/uL (3.8-10.6)
[2017-12-10] MEDS: IPRATROPIUM-ALBUTEROL 3 ML NEB INHALATION PRN (07:25)
[2017-12-10 07:38] LABS: Potassium 4.1 mmol/L (3.5-5.1)
[2017-12-10] MEDS: INSULIN ASPART 100 UNIT/ML 1 ML 10 ML VIAL SQ SCH ×2 (08:45→13:16)
[2017-12-10] MEDS: CARVEDILOL 12.5 MG TAB PO SCH (08:49)
[2017-12-10] MEDS: hydrALAZINE HCL 50 MG TAB PO SCH (08:49)
[2017-12-10] MEDS: PANTOPRAZOLE 40 MG TABLET PO SCH (08:49)
[2017-12-10] MEDS: OXYBUTYNIN CHLORIDE 5 MG TAB PO SCH (08:49)
[2017-12-10] MEDS: BENZTROPINE MESYLATE 1 MG TAB PO SCH (08:49)
[2017-12-10] MEDS: TAMSULOSIN 0.4 MG CAP.ER.24H PO SCH (08:49)
[2017-12-10] MEDS: FINASTERIDE 5 MG TAB PO SCH (08:49)
[2017-12-10 08:58] LABS: INR 1.2 (<1.2); Prothrombin Time 11.7 sec (9.0-12.0)
[2017-12-10] MEDS ORDERED: ASPIRIN 325 MG TAB PO SCH (09:00)
[2017-12-10 12:12] LABS: Glucose,Whole Blood 100 mg/dL (75-99)
[2017-12-10 12:51] VITALS: BP 141/70; PULSE 65; TEMP 98
--- NOTE | 2017-12-10 13:12 | P.DS ---
Providers Date of admission: 12/09/17 00:09 Expected date of discharge: 12/10/17 Attending physician: Brook Maza MD Consults: 12/09/17 00:08 Consult Physician Urgent Consulting Provider: Gio Sanchez Consult Reason/Comments: cp Do you want consulting provider notified?: Yes Primary care physician: Cintia Sarmiento - Discharge Diagnosis(es) (1) Chest pain Current Visit: Yes Status: Acute (2) HLD (hyperlipidemia) Current Visit: Yes Status: Acute (3) HTN (hypertension) Current Visit: Yes Status: Acute (4) Bipolar disorder Current Visit: Yes Status: Acute (5) Urinary retention Current Visit: Yes Status: Acute (6) BPH (benign prostatic hyperplasia) Current Visit: Yes Status: Acute Hospital Course: Patient is a 67-year-old male with a past medical history of congestive heart failure, COPD coming DVT, dyslipidemia, hypertension, memory impairment, multiple thromboembolisms, and bipolar disorder who presented to the emergency department with complaints of chest pain. In the ER he underwent an extensive evaluation. Initial EKG did not show any significant ST-T wave changes. Initial blood pressure was slightly elevated at 162/91. Initial laboratory analysis was unremarkable with normal troponin. He was admitted as observation. He was seen by cardiology the next day he had had 2 negative troponins. Echocardiogram was ordered as well as his third troponin. Echocardiogram was within normal limits and third troponin was negative. Cardiology felt that he was appropriate for outpatient stress test. He was found have slight urinary retention about 300 mL. He already takes Proscar and Flomax at home. It was discussed with his daughter that he should follow up with urology as an outpatient. They've already been working on getting him into urology. He is very dependent on his family for all medications and help with groceries and he has meals on wheels. We will set him up with home health along with social work. I did discuss with the daughter that there may be an option for rides. Her insurance company to get to appointments. He was given an RX for prn nitro with verbal and written instructions to call 911 or his doctor if he needs to use nitro. D/W daughter plan of care. Patient seen and examined at bedside. No chest pain, SOB, nausea, or vomiting. Vital signs reviewed and stable. General: non toxic, no distress, appears at stated age Derm: warm, dry Head: atraumatic, normocephalic, symmetric Eyes: EOMI, no lid lag, anicteric sclera Mouth: no lip lesion, mucus membranes moist Cardiovascular: S1S2 reg, no murmur, positive posterior tibial pulse bilateral, Lungs: CTA bilateral, no rhonchi, no rales , no accessory muscle use Abdominal: soft, nontender to palpation, no guarding, no appreciable organomegaly Ext: no gross muscle atrophy, no edema, no contractures Neuro: CN II-XI grossly intact, no focal neuro deficits Psych: Alert, oriented, flat affect A total of 25 minutes of time were spent preparing this complex discharge summary . Pertinent Studies: Echo- EF 55-60%, mild concentric LVH CXR- NAP Patient Condition at Discharge: Stable Plan - Discharge Summary New Discharge Prescriptions: Continue hydrALAZINE HCL [Apresoline] 50 mg PO TID carBAMazepine [TEGretol XR] 200 mg PO Q12H Warfarin [Coumadin] 5 mg PO DAILY Carvedilol [Coreg] 12.5 mg PO BID Aspirin 81 mg PO DAILY Tamsulosin [Flomax] 0.4 mg PO DAILY QUEtiapine [SEROquel] 100 mg PO HS Potassium Chloride [Klor-Con 20] 20 meq PO DAILY Pantoprazole [Protonix] 40 mg PO QAM Oxybutynin Chloride [Ditropan] 5 mg PO DAILY Isosorbide Mononitrate ER [Imdur] 60 mg PO DAILY Glimepiride [Amaryl] 2 mg PO AC-BRKFST Furosemide [Lasix] 40 mg PO DAILY Finasteride [Proscar] 5 mg PO DAILY Benztropine Mesylate [Cogentin] 1 mg PO DAILY Atorvastatin [Lipitor] 80 mg PO HS Discharge Medication List Aspirin 81 mg PO DAILY 12/08/17 [History] Atorvastatin [Lipitor] 80 mg PO HS 12/08/17 [History] Benztropine Mesylate [Cogentin] 1 mg PO DAILY 12/08/17 [History] Carvedilol [Coreg] 12.5 mg PO BID 12/08/17 [History] Finasteride [Proscar] 5 mg PO DAILY 12/08/17 [History] Furosemide [Lasix] 40 mg PO DAILY 12/08/17 [History] Glimepiride [Amaryl] 2 mg PO AC-BRKFST 12/08/17 [History] Isosorbide Mononitrate ER [Imdur] 60 mg PO DAILY 12/08/17 [History] Oxybutynin Chloride [Ditropan] 5 mg PO DAILY 12/08/17 [History] Pantoprazole [Protonix] 40 mg PO QAM 12/08/17 [History] Potassium Chloride [Klor-Con 20] 20 meq PO DAILY 12/08/17 [History] QUEtiapine [SEROquel] 100 mg PO HS 12/08/17 [History] Tamsulosin [Flomax] 0.4 mg PO DAILY 12/08/17 [History] Warfarin [Coumadin] 5 mg PO DAILY 12/08/17 [History] carBAMazepine [TEGretol XR] 200 mg PO Q12H 12/08/17 [History] hydrALAZINE HCL [Apresoline] 50 mg PO TID 12/08/17 [History] Follow up Appointment(s)/Referral(s): Cintia Sarmiento MD [Primary Care Provider] - 1-2 days [facility], [NON-STAFF] -
[2017-12-10] MEDS ORDERED: WARFARIN 7.5 MG TAB PO ONE (18:00)
== END 2017-12-10 13:25 | disposition home health service (06) ==
LOC: EC 21:58 → 3OBS 12-09 00:09
PROVIDERS: ADMIT Internal Medicine; ATTEND Internal Medicine
DX: R07.89 Other chest pain (principal); J44.9 Chronic obstructive pulmonary disease, unspecified; I11.0 Hypertensive heart disease with heart failure; I50.9 Heart failure, unspecified; N40.1 Benign prostatic hyperplasia with lower urinary tract symptoms; R33.8 Other retention of urine; I25.10 Atherosclerotic heart disease of native coronary artery without angina pectoris; E83.42 Hypomagnesemia; E11.9 Type 2 diabetes mellitus without complications; F31.9 Bipolar disorder, unspecified; F41.9 Anxiety disorder, unspecified; Z99.81 Dependence on supplemental oxygen; G47.33 Obstructive sleep apnea (adult) (pediatric); Z95.5 Presence of coronary angioplasty implant and graft; E78.5 Hyperlipidemia, unspecified; E66.01 Morbid (severe) obesity due to excess calories; Z68.33 Body mass index [BMI] 33.0-33.9, adult; M19.90 Unspecified osteoarthritis, unspecified site; Z79.01 Long term (current) use of anticoagulants; Z79.82 Long term (current) use of aspirin; Z79.84 Long term (current) use of oral hypoglycemic drugs; Z79.899 Other long term (current) drug therapy; Z86.14 Personal history of Methicillin resistant Staphylococcus aureus infection; Z87.891 Personal history of nicotine dependence; Z86.718 Personal history of other venous thrombosis and embolism; Z86.711 Personal history of pulmonary embolism; Z82.49 Family history of ischemic heart disease and other diseases of the circulatory system; Z84.1 Family history of disorders of kidney and ureter
CPT/HCPCS: 99285 ×2; 93005 ×2; 96365; 96372 ×2; 36415; 94640 ×3; 94760; 93306; 80061; 80053; 80048; 82550 ×2; 82553 ×2; 83605; 83735 ×2; 84484 ×2; 85025 ×2; 85610 ×2; 85730; 83036; 71046; G0378 ×2; S0138 ×2; J1644 ×2; J3475

== ENCOUNTER → 2018-01-12 | Outpatient (CLI) | payer MEDICARE ==
[~2018-01-12] MED LIST: DOBUTamine DRIP for NUC MED 500 MG in DEXTROSE/WATER 1 250ML.BAG IV ONE
--- NOTE | 2018-01-12 10:49 | P.STRESS ---
- Stress Test Note Stress Test Results/Findings: Exam Performed: dobutamine stress echo with con Exam Date: 01/12/18 Reason for Exam: DIZZINESS Height: 5 ft 6 in Weight: 93.44 kg Protocol: DSE Stage: 40 MCG Duration of Exercise: 11 MIN Resting Heart Rate: 75 Resting Blood Pressure: 133/65 Maximum Achieved Heart Rate: 130 Maximum Achieved Blood Pressure: 178/46 85% PMHR: 130 100% PMHR: 153 METS: Technologist Comment: Stress Test Results/Findings: Baseline heart rate 75 beats a minute, Baseline blood pressure 133/65 mmHg The second twelve-lead ECG shows sinus rhythm with normal ST segments Patient received dobutamine infusion per protocol up to 40 g No ECG evidence of ischemia No arrhythmias Baseline 2-D echo images were suboptimal. Patient is on home oxygen Echo contrast was used Baseline 2-D echo images showed normal LV size and systolic function without segmental wall motion amenities There was a stepwise augmentation of overall LV contractility with increasing dobutamine infusion rates without development of any wall motion abdomen 30s At recovery regional and global LV systolic function remained normal Impression No ECG or echocardiographic evidence for ischemia
== END | disposition home or self-care (01) ==
LOC: RADNMMAIN 09:05
PROVIDERS: ATTEND Family Medicine
DX: R42 Dizziness and giddiness (principal); Z86.79 Personal history of other diseases of the circulatory system; I20.0 Unstable angina
CPT/HCPCS: C8930; J1250; Q9950; 93351

== ENCOUNTER 2018-11-13 09:49 | Inpatient (IN) | payer MEDICARE ==
[2018-11-13] MEDS ORDERED: SODIUM CHLORIDE 0.9% 1,000 ML IV ONE ×2 (10:40)
[2018-11-13 10:47] LABS: Glucose,Whole Blood 80 mg/dL (75-99)
--- NOTE | 2018-11-13 11:01 | ED ---
Altered Mental Status HPI - General Chief Complaint: Altered Mental Status Stated Complaint: ALTERED MENTAL STATUS X 4 DAYS Time Seen by Provider: 11/13/18 10:25 Source: patient, family, RN notes reviewed Mode of arrival: ambulatory Limitations: altered mental status - History of Present Illness Initial Comments: This is a 68-year-old male with a history of bipolar disorder history of a recent urinary tract infection with altered mental status changes secondary to the infection who is brought in today by family members with [place] recurrence of the same issues. He apparently has not been eating very well is been delusional he's been thinking that his house is infected his clothing is infected. He has been going on for the past 4 days ago worse last night. He demonstrated no overt fevers chills sweats no focal loss of function to his extremities. MD Complaint: confusion - Related Data Home Medications Medication Instructions Recorded Confirmed Aspirin 81 mg PO HS 12/08/17 11/13/18 Atorvastatin [Lipitor] 80 mg PO HS 12/08/17 11/13/18 Benztropine Mesylate [Cogentin] 1 mg PO DAILY 12/08/17 11/13/18 Carvedilol [Coreg] 12.5 mg PO DAILY 12/08/17 11/13/18 Finasteride [Proscar] 5 mg PO DAILY 12/08/17 11/13/18 Furosemide [Lasix] 40 mg PO DAILY 12/08/17 11/13/18 Glimepiride [Amaryl] 2 mg PO AC-BID 12/08/17 11/13/18 Isosorbide Mononitrate ER [Imdur] 60 mg PO BID 12/08/17 11/13/18 Oxybutynin Chloride [Ditropan] 5 mg PO DAILY 12/08/17 11/13/18 Pantoprazole [Protonix] 40 mg PO QAM 12/08/17 11/13/18 Potassium Chloride [Klor-Con 20] 20 meq PO DAILY 12/08/17 11/13/18 Tamsulosin [Flomax] 0.4 mg PO DAILY 12/08/17 11/13/18 Warfarin [Coumadin] 5 mg PO DAILY 12/08/17 11/13/18 carBAMazepine [TEGretol XR] 200 mg PO Q12H 12/08/17 11/13/18 hydrALAZINE HCL [Apresoline] 50 mg PO TID 12/08/17 11/13/18 QUEtiapine FUMARATE [SEROquel] 200 mg PO HS 11/13/18 11/13/18 Allergies Allergy/AdvReac Type Severity Reaction Status Date / Time No Known Allergies Allergy Verified 11/13/18 10:28 Review of Systems ROS Statement: Those systems with pertinent positive or pertinent negative responses have been documented in the HPI. ROS Other: All systems not noted in ROS Statement are negative. Past Medical History Past Medical History: Heart Failure, COPD, Diabetes Mellitus, Deep Vein Thrombosis (DVT), Hyperlipidemia, Hypertension, Memory Impairment, Osteoarthritis (OA), Pneumonia, Prostate Disorder, Pulmonary Embolus (PE), Sleep Apnea/CPAP/BIPAP Additional Past Medical History / Comment(s): DVT and PE - pt unsure of how long ago - he is on coumadin History of Any Multi-Drug Resistant Organisms: MRSA Date of last positivie culture/infection: unsure thinks 2-3 years ago MDRO Source:: lungs/legs Past Surgical History: Heart Catheterization With Stent Additional Past Surgical History / Comment(s): 1 stent - pt unsure of exact year thinks over 5 yrs ago - pt states done at [facility] Past Anesthesia/Blood Transfusion Reactions: No Reported Reaction Date of Last Stent Placement:: unsure Past Psychological History: Anxiety, Bipolar, Depression Smoking Status: Former smoker Past Alcohol Use History: Rare Past Drug Use History: None Reported - Past Family History Mother Family Medical History: Myocardial Infarction ([place]) Father Family Medical History: Renal Disease Additional Family Medical History / Comment(s): renal disease General Exam - General Exam Comments Initial Comments: This a well-developed well-nourished awake alert but somewhat confused male Limitations: altered mental status General appearance: alert, in no apparent distress, lethargic Head exam: Present: atraumatic, normocephalic, normal inspection Eye exam: Present: normal appearance, PERRL, EOMI. Absent: scleral icterus, conjunctival injection, periorbital swelling ENT exam: Present: mucous membranes dry Neck exam: Present: normal inspection, other (No stridor JVD or bruits). Absent: tenderness, meningismus, lymphadenopathy Respiratory exam: Present: normal lung sounds bilaterally. Absent: respiratory distress, wheezes, rales, rhonchi, stridor Cardiovascular Exam: Present: regular rate, normal rhythm, normal heart sounds. Absent: systolic murmur, diastolic murmur, rubs, gallop, clicks GI/Abdominal exam: Present: soft, normal bowel sounds. Absent: distended, tenderness, guarding, rebound, rigid Extremities exam: Present: full ROM, normal capillary refill, other (There is evidence of base scab formation to the lateral posterior right elbow with some localized erythema and increased warmth also the right hand is somewhat edematous with increased localized temperature and redness.). Absent: tenderness, pedal edema, joint swelling, calf tenderness Back exam: Present: normal inspection Neurological exam: Present: alert, oriented X3, CN II-XII intact Psychiatric exam: Present: normal affect, normal mood Skin exam: Present: warm, dry, intact, normal color. Absent: rash Course Vital Signs 11/13/18 11/13/18 11/13/18 10:04 11:13 12:29 Temperature 99.2 F 98.2 F Pulse Rate 85 75 78 Respiratory 18 18 18 Rate Blood Pressure 137/74 155/88 157/92 O2 Sat by Pulse 98 99 97 Oximetry 11/13/18 14:00 Temperature 98.6 F Pulse Rate 83 Respiratory 20 Rate Blood Pressure 147/72 O2 Sat by Pulse 98 Oximetry Medical Decision Making - Medical Decision Making I did discuss the findings with the patient and family member that was present. Patient be admitted continued IV antibiotics and fluids case is discussed with Dr. Melendrez - Lab Data Result diagrams: 11/13/18 10:40 11/13/18 10:40 Lab Results 11/13/18 11/13/18 11/13/18 Range/Units 10:40 10:40 10:40 WBC 6.6 (3.8-10.6) k/uL RBC 5.17 (4.30-5.90) m/uL Hgb 15.0 (13.0-17.5) gm/dL Hct 46.5 (39.0-53.0) % MCV 90.0 (80.0-100.0) fL MCH 29.0 (25.0-35.0) pg MCHC 32.3 (31.0-37.0) g/dL RDW 14.4 (11.5-15.5) % Plt Count 165 (150-450) k/uL Neutrophils % 72 % Lymphocytes % 15 % Monocytes % 6 % Eosinophils % 4 % Basophils % 1 % Neutrophils # 4.7 (1.3-7.7) k/uL Lymphocytes # 1.0 (1.0-4.8) k/uL Monocytes # 0.4 (0-1.0) k/uL Eosinophils # 0.3 (0-0.7) k/uL Basophils # 0.1 (0-0.2) k/uL PT (9.0-12.0) sec INR (<1.2) APTT (22.0-30.0) sec Sodium 141 (137-145) mmol/L Potassium 4.2 (3.5-5.1) mmol/L Chloride 96 L (98-107) mmol/L Carbon Dioxide 39 H (22-30) mmol/L Anion Gap 6 mmol/L BUN 38 H (9-20) mg/dL Creatinine 1.32 H (0.66-1.25) mg/dL Est GFR (CKD-EPI)AfAm 64 (>60 ml/min/1.73 sqM) Est GFR (CKD-EPI)NonAf 55 (>60 ml/min/1.73 sqM) Glucose 82 (74-99) mg/dL POC Glucose (mg/dL) (75-99) mg/dL POC Glu Pig Lead Melter Helper ID Plasma Lactic Acid Gil (0.7-2.0) mmol/L Calcium 9.4 (8.4-10.2) mg/dL Magnesium 1.5 L (1.6-2.3) mg/dL Total Bilirubin 0.7 (0.2-1.3) mg/dL AST 34 (17-59) U/L ALT 37 (21-72) U/L Alkaline Phosphatase 87 (38-126) U/L Ammonia 13 (<30) umol/L Creatine Kinase 112 (55-170) U/L Troponin I (0.000-0.034) ng/mL Total Protein 6.5 (6.3-8.2) g/dL Albumin 4.0 (3.5-5.0) g/dL Urine Color Urine Appearance (Clear) Urine pH (5.0-8.0) Ur Specific [place] (1.001-1.035) Urine Protein (Negative) Urine Glucose (UA) (Negative) Urine Ketones (Negative) Urine Blood (Negative) Urine Nitrite (Negative) Urine Bilirubin (Negative) Urine Urobilinogen (<2.0) mg/dL Ur Leukocyte Esterase (Negative) Urine Opiates Screen (NotDetected) Ur Oxycodone Screen (NotDetected) Urine Methadone Screen (NotDetected) Ur Propoxyphene Screen (NotDetected) Ur Barbiturates Screen (NotDetected) U Tricyclic Antidepress (NotDetected) Ur Phencyclidine Scrn (NotDetected) Ur Amphetamines Screen (NotDetected) U Methamphetamines Scrn (NotDetected) U Benzodiazepines Scrn (NotDetected) Urine Cocaine Screen (NotDetected) U Marijuana (THC) Screen (NotDetected) 11/13/18 11/13/18 11/13/18 Range/Units 10:40 10:40 10:40 WBC (3.8-10.6) k/uL RBC (4.30-5.90) m/uL Hgb (13.0-17.5) gm/dL Hct (39.0-53.0) % MCV (80.0-100.0) fL MCH (25.0-35.0) pg MCHC (31.0-37.0) g/dL RDW (11.5-15.5) % Plt Count (150-450) k/uL Neutrophils % % Lymphocytes % % Monocytes % % Eosinophils % % Basophils % % Neutrophils # (1.3-7.7) k/uL Lymphocytes # (1.0-4.8) k/uL Monocytes # (0-1.0) k/uL Eosinophils # (0-0.7) k/uL Basophils # (0-0.2) k/uL PT 27.6 H (9.0-12.0) sec INR 2.9 H (<1.2) APTT 36.3 H (22.0-30.0) sec Sodium (137-145) mmol/L Potassium (3.5-5.1) mmol/L Chloride (98-107) mmol/L Carbon Dioxide (22-30) mmol/L Anion Gap mmol/L BUN (9-20) mg/dL Creatinine (0.66-1.25) mg/dL Est GFR (CKD-EPI)AfAm (>60 ml/min/1.73 sqM) Est GFR (CKD-EPI)NonAf (>60 ml/min/1.73 sqM) Glucose (74-99) mg/dL POC Glucose (mg/dL) (75-99) mg/dL POC Glu Pig Lead Melter Helper ID Plasma Lactic Acid Gil 1.2 (0.7-2.0) mmol/L Calcium (8.4-10.2) mg/dL Magnesium (1.6-2.3) mg/dL Total Bilirubin (0.2-1.3) mg/dL AST (17-59) U/L ALT (21-72) U/L Alkaline Phosphatase (38-126) U/L Ammonia (<30) umol/L Creatine Kinase (55-170) U/L Troponin I 0.015 (0.000-0.034) ng/mL Total Protein (6.3-8.2) g/dL Albumin (3.5-5.0) g/dL Urine Color Urine Appearance (Clear) Urine pH (5.0-8.0) Ur Specific [place] (1.001-1.035) Urine Protein (Negative) Urine Glucose (UA) (Negative) Urine Ketones (Negative) Urine Blood (Negative) Urine Nitrite (Negative) Urine Bilirubin (Negative) Urine Urobilinogen (<2.0) mg/dL Ur Leukocyte Esterase (Negative) Urine Opiates Screen (NotDetected) Ur Oxycodone Screen (NotDetected) Urine Methadone Screen (NotDetected) Ur Propoxyphene Screen (NotDetected) Ur Barbiturates Screen (NotDetected) U Tricyclic Antidepress (NotDetected) Ur Phencyclidine Scrn (NotDetected) Ur Amphetamines Screen (NotDetected) U Methamphetamines Scrn (NotDetected) U Benzodiazepines Scrn (NotDetected) Urine Cocaine Screen (NotDetected) U Marijuana (THC) Screen (NotDetected) 11/13/18 11/13/18 Range/Units 10:47 11:23 WBC (3.8-10.6) k/uL RBC (4.30-5.90) m/uL Hgb (13.0-17.5) gm/dL Hct (39.0-53.0) % MCV (80.0-100.0) fL MCH (25.0-35.0) pg MCHC (31.0-37.0) g/dL RDW (11.5-15.5) % Plt Count (150-450) k/uL Neutrophils % % Lymphocytes % % Monocytes % % Eosinophils % % Basophils % % Neutrophils # (1.3-7.7) k/uL Lymphocytes # (1.0-4.8) k/uL Monocytes # (0-1.0) k/uL Eosinophils # (0-0.7) k/uL Basophils # (0-0.2) k/uL PT (9.0-12.0) sec INR (<1.2) APTT (22.0-30.0) sec Sodium (137-145) mmol/L Potassium (3.5-5.1) mmol/L Chloride (98-107) mmol/L Carbon Dioxide (22-30) mmol/L Anion Gap mmol/L BUN (9-20) mg/dL Creatinine (0.66-1.25) mg/dL Est GFR (CKD-EPI)AfAm (>60 ml/min/1.73 sqM) Est GFR (CKD-EPI)NonAf (>60 ml/min/1.73 sqM) Glucose (74-99) mg/dL POC Glucose (mg/dL) 80 (75-99) mg/dL POC Glu Pig Lead Melter Helper Michelle [place] Plasma Lactic Acid Gil (0.7-2.0) mmol/L Calcium (8.4-10.2) mg/dL Magnesium (1.6-2.3) mg/dL Total Bilirubin (0.2-1.3) mg/dL AST (17-59) U/L ALT (21-72) U/L Alkaline Phosphatase (38-126) U/L Ammonia (<30) umol/L Creatine Kinase (55-170) U/L Troponin I (0.000-0.034) ng/mL Total Protein (6.3-8.2) g/dL Albumin (3.5-5.0) g/dL Urine Color Yellow Urine Appearance Clear (Clear) Urine pH 5.0 (5.0-8.0) Ur Specific [place] 1.012 (1.001-1.035) Urine Protein Negative (Negative) Urine Glucose (UA) Negative (Negative) Urine Ketones Negative (Negative) Urine Blood Negative (Negative) Urine Nitrite Negative (Negative) Urine Bilirubin Negative (Negative) Urine Urobilinogen <2.0 (<2.0) mg/dL Ur Leukocyte Esterase Negative (Negative) Urine Opiates Screen Not Detected (NotDetected) Ur Oxycodone Screen Not Detected (NotDetected) Urine Methadone Screen Not Detected (NotDetected) Ur Propoxyphene Screen Not Detected (NotDetected) Ur Barbiturates Screen Not Detected (NotDetected) U Tricyclic Antidepress Detected H (NotDetected) Ur Phencyclidine Scrn Not Detected (NotDetected) Ur Amphetamines Screen Not Detected (NotDetected) U Methamphetamines Scrn Not Detected (NotDetected) U Benzodiazepines Scrn Not Detected (NotDetected) Urine Cocaine Screen Not Detected (NotDetected) U Marijuana (THC) Screen Not Detected (NotDetected) - EKG Data -: EKG Interpreted by Mt EKG shows normal: sinus rhythm (Sinus rhythm of 73. Interval 182 QRS duration 86 QT since QTC 44/445QRS nonspecific septal changes.) - Radiology Data Radiology results: report reviewed (Evidence of atelectasis versus infiltrate at the cardiac apex), image reviewed Disposition Clinical Impression: Delirium due to general medical condition, Pneumonia, Febrile illness, acute, History of bipolar disorder, Right arm cellulitis Disposition: ADMITTED IP TO THIS [facility] Condition: Serious Referrals: Cintia Sarmiento MD [Primary Care Provider] - 1-2 days
[2018-11-13 11:28] LABS: Calcium 9.4 mg/dL (8.4-10.2); Magnesium 1.5 mg/dL (1.6-2.3); Potassium 4.2 mmol/L (3.5-5.1); Total Bilirubin 0.7 mg/dL (0.2-1.3); Total Protein 6.5 g/dL (6.3-8.2)
[2018-11-13 11:36] LABS: Basophils # (A) 0.1 k/uL (0-0.2); Basophils % (A) 1 %; Eosinophils # (A) 0.3 k/uL (0-0.7); Eosinophils % (A) 4 %; HCT 46.5 % (39.0-53.0); Lymphocytes % (A) 15 %; MCHC 32.3 g/dL (31.0-37.0); Mean Platelet Volume 7.6; Monocytes # (A) 0.4 k/uL (0-1.0); Monocytes % (A) 6 %; Neutrophils # (A) 4.7 k/uL (1.3-7.7); Neutrophils % (A) 72 %; Platelet Count 165 k/uL (150-450); RBC 5.17 m/uL (4.30-5.90); RDW 14.4 % (11.5-15.5); WBC 6.6 k/uL (3.8-10.6)
[2018-11-13 11:40] LABS: Appearance,Urine Clear (Clear); Bilirubin,Urine Negative (Negative); Blood,Urine Negative (Negative); Color,Urine Yellow; Glucose,Urine (UA) Negative (Negative); Ketones,Urine Negative (Negative); Leukocyte Esterase,Urine Negative (Negative); Nitrite,Urine Negative (Negative); Protein,Urine Negative (Negative); Specific Gravity,Urine 1.012 (1.001-1.035); Urobilinogen,Urine <2.0 mg/dL (<2.0)
[2018-11-13 11:42] LABS: INR 2.9 (<1.2); Partial Thromboplastin Time 36.3 sec (22.0-30.0); Prothrombin Time 27.6 sec (9.0-12.0)
[2018-11-13 11:50] LABS: Amphetamine Screen,Urine Not Detected (NotDetected); Barbiturate Screen,Urine Not Detected (NotDetected); Benzodiazepines Screen,Urine Not Detected (NotDetected); Cocaine Screen,Urine Not Detected (NotDetected); Methadone Screen, Urine Not Detected (NotDetected); Opiate Screen,Urine Not Detected (NotDetected); Oxycodone Screen, Urine Not Detected (NotDetected); Phencyclidine Screen,Urine Not Detected (NotDetected); Tricyclic Antidepressant,Urine Detected (NotDetected); Urn Cannabinoid Scrn Not Detected (NotDetected)
--- NOTE | 2018-11-13 11:50 | CT ---
EXAMINATION TYPE: CT brain wo con DATE OF EXAM: 11/13/2018 COMPARISON: None HISTORY: 68-year-old male Altered mental status, abnormal gait TECHNIQUE: Examination was done in axial plane without intravenous contrast. Coronal and sagittal r econstructions performed. CT DLP: 1074.4 mGycm Automated exposure control for dose reduction was used. FINDINGS: There is no evidence of acute intracranial hemorrhage, acute ischemic changes, mass, mass-effect, or extra-axial fluid collection. There is no effacement of cerebral sulci or basal subarachnoid cister ns. There is no hydrocephalus. There is no midline shift. Coleman-white matter distinction is preserv ed. Scattered mild patchy white matter hypodensities in both cerebral hemispheres. Prominent cerumen within the bilateral external auditory canals. Paranasal sinuses and mastoid air ce lls appear pneumatized. Orbits and globes appear intact. IMPRESSION: Mild patchy changes of chronic small vessel ischemic disease. No acute intracranial abnormality seen.
--- NOTE | 2018-11-13 12:25 | XR ---
EXAMINATION TYPE: XR chest 2V DATE OF EXAM: 11/13/2018 COMPARISON: 12/08/2017 HISTORY: 68 year-old male altered mental status TECHNIQUE: AP and lateral views FINDINGS: Heart mild to moderately enlarged. Hyperinflation with flattening of hemidiaphragms and increased ret rosternal clear space. Bilateral hilar prominence. There is focal opacity at the cardiac apex. IMPRESSION: 1. Cardiomegaly and COPD. Possible underlying pulmonary arterial hypertension. 2. Focal density at the cardiac apex could represent atelectasis or infiltrate.
[2018-11-13] MEDS ORDERED: MAGNESIUM SULFATE-D5W PMX 1 GM in DEXTROSE/WATER 1 100ML.BAG IVPB ONE (13:29)
[2018-11-13] MEDS ORDERED: cefTRIAXone IN SWFI 1,000 MG/10 ML SYRINGE IVP STA (13:30)
[2018-11-13] MEDS ORDERED: AZITHROMYCIN 500 MG in SODIUM CHLORIDE 0.9% 250 ML IVPB STA (14:41)
[2018-11-13] MEDS ORDERED: PNEUMONIA PROTOCOL UTILIZED 1 EACH MISC PO PRN (14:41)
[2018-11-13] MEDS: SODIUM CHLORIDE 0.9% 1,000 ML IV SCH (16:49)
[2018-11-13] MEDS: hydrALAZINE HCL 50 MG TAB PO SCH ×2 (16:50→20:47)
--- NOTE | 2018-11-13 16:58 | P.HPIM ---
History of Present Illness H&P Date: 11/13/18 Chief Complaint: Confusion, resolved 60-year-old male with PMH of bipolar disorder, history of altered mental status due to urinary tract infection, history of DVT/PE, hypertension, COPD, CHF, diabetes mellitus, CAD presents to the ED for altered mental status and confusion. Majority of the history is obtained from the chart as there is no family at bedside and patient is unable to voice his concerns effectively. Patient reports that he has been "sleeping all the time" and "sad all the time". When prompted by nursing, patient reports that he is seeing and hearing things that aren't there but has been ongoing for a very long time. Patient also states that he has a decreased appetite and early satiety. Patient also reports that he is being taken an antibiotic through his PCP for a bladder infection and hematuria. As per ED documentation, patient is brought in today by family members for delusional thoughts and for changes in mentation. Apparently, symptoms of been ongoing for 4 days and got worse yesterday. Patient currently denies any headache, lower extremity edema, nausea, vomiting, fever, cough, chest pain, palpitations, changes in urination. He denies any dizziness, numbness/weakness/tingling of the extremities. Patient does report some shortness of breath with exertion. He also reports some constipation, last bowel movement 2 days ago. In the ED, patient was afebrile with no leukocytosis. Coagulation panel showed an INR of 2.9. CMP showed a chloride of 96, HCO3 of 39, BUN of 38 and creatinine of 1.32. Magnesium was 1.5. Urinalysis was negative for nitrite or leukocyte Estrace. UDS was positive for TCAs. Troponin was 0.015, EKG showing normal sinus rhythm. Chest x-ray shows cardiomegaly and COPD, focal density in the cardiac apex could represent atelectasis or infiltrate. CT of the brain was negative for any acute findings. Patient is admitted for treatment of pneumonia, IV antibiotics. Review of Systems All systems: negative Past Medical History Past Medical History: Heart Failure, COPD, Diabetes Mellitus, Deep Vein Thrombosis (DVT), Hyperlipidemia, Hypertension, Memory Impairment, Osteoarthritis (OA), Pneumonia, Prostate Disorder, Pulmonary Embolus (PE), Sleep Apnea/CPAP/BIPAP Additional Past Medical History / Comment(s): DVT and PE - pt unsure of how long ago - he is on coumadin History of Any Multi-Drug Resistant Organisms: MRSA Date of last positivie culture/infection: unsure thinks 2-3 years ago MDRO Source:: lungs/legs Past Surgical History: Heart Catheterization With Stent Additional Past Surgical History / Comment(s): 1 stent - pt unsure of exact year thinks over 5 yrs ago - pt states done at [facility] Past Anesthesia/Blood Transfusion Reactions: No Reported Reaction Date of Last Stent Placement:: unsure Past Psychological History: Anxiety, Bipolar, Depression Smoking Status: Former smoker Past Alcohol Use History: Rare Past Drug Use History: None Reported - Past Family History Mother Family Medical History: Myocardial Infarction ([place]) Father Family Medical History: Renal Disease Additional Family Medical History / Comment(s): renal disease Medications and Allergies Home Medications Medication Instructions Recorded Confirmed Type Aspirin 81 mg PO HS 12/08/17 11/13/18 History Atorvastatin [Lipitor] 80 mg PO HS 12/08/17 11/13/18 History Benztropine Mesylate [Cogentin] 1 mg PO DAILY 12/08/17 11/13/18 History Carvedilol [Coreg] 12.5 mg PO DAILY 12/08/17 11/13/18 History Finasteride [Proscar] 5 mg PO DAILY 12/08/17 11/13/18 History Furosemide [Lasix] 40 mg PO DAILY 12/08/17 11/13/18 History Glimepiride [Amaryl] 2 mg PO AC-BID 12/08/17 11/13/18 History Isosorbide Mononitrate ER [Imdur] 60 mg PO DAILY 12/08/17 11/13/18 History Oxybutynin Chloride [Ditropan] 5 mg PO DAILY 12/08/17 11/13/18 History Pantoprazole [Protonix] 40 mg PO QAM 12/08/17 11/13/18 History Potassium Chloride [Klor-Con 20] 20 meq PO DAILY 12/08/17 11/13/18 History Tamsulosin [Flomax] 0.4 mg PO DAILY 12/08/17 11/13/18 History Warfarin [Coumadin] 5 mg PO DAILY 12/08/17 11/13/18 History carBAMazepine [TEGretol XR] 200 mg PO Q12H 12/08/17 11/13/18 History hydrALAZINE HCL [Apresoline] 50 mg PO TID 12/08/17 11/13/18 History QUEtiapine FUMARATE [SEROquel] 200 mg PO HS 11/13/18 11/13/18 History Allergies Allergy/AdvReac Type Severity Reaction Status Date / Time No Known Allergies Allergy Verified 11/13/18 10:28 Physical Exam Vitals: Vital Signs Temp Pulse Pulse Resp BP BP Pulse Ox 11/13/18 16:06 98.4 F 75 16 154/84 99 11/13/18 15:55 98 F 78 16 141/87 97 11/13/18 14:00 98.6 F 83 20 147/72 98 11/13/18 12:29 98.2 F 78 18 157/92 97 11/13/18 11:13 75 18 155/88 99 11/13/18 10:04 99.2 F 85 18 137/74 98 Intake and Output 11/13/18 11/13/18 11/13/18 06:59 14:59 22:59 Other: Weight 91.626 kg General: [non toxic], [no distress], [appears at stated age] Derm: [warm], [dry] Head: [atraumatic], [normocephalic], [symmetric] Eyes: [EOMI], [no lid lag], [anicteric sclera] Mouth: [no lip lesion], [mucus membranes moist] Cardiovascular: [S1S2 reg], [no murmur], [positive DP pulse bilateral] Lungs: [CTA bilateral], [no rhonchi, no rales] , [no accessory muscle use] Abdominal: [soft], [ nontender to palpation], [no guarding], [no appreciable organomegaly] Ext: [no gross muscle atrophy], [no edema], [no contractures] Neuro: [Unable to effectively gauge], [involuntary hand movements] Psych: [Alert], [oriented] Results CBC & Chem 7: 11/13/18 10:40 11/13/18 10:40 Labs: Abnormal Lab Results - Last 24 Hours (Table) 11/13/18 11/13/18 11/13/18 Range/Units 10:40 10:40 11:23 PT 27.6 H (9.0-12.0) sec INR 2.9 H (<1.2) APTT 36.3 H (22.0-30.0) sec Chloride 96 L (98-107) mmol/L Carbon Dioxide 39 H (22-30) mmol/L BUN 38 H (9-20) mg/dL Creatinine 1.32 H (0.66-1.25) mg/dL Magnesium 1.5 L (1.6-2.3) mg/dL U Tricyclic Antidepress Detected H (NotDetected) Thrombosis Risk Factor Assmnt - Choose All That Apply Any of the Below Risk Factors Present?: Yes Each Factor Represents 1 point: Abnormal pulmonary function (COPD), Obesity (BMI >25) Other Risk Factors: Yes Each Risk Factor Represents 2 Points: Age 61-74 years Thrombosis Risk Factor Assessment Total Risk Factor Score: 4 Thrombosis Risk Factor Assessment Level: Moderate Risk Assessment and Plan Assessment: Assessment and Plan 1. Community-acquired pneumonia 2. Cellulitis 3. Hypochloremic metabolic alkalosis 4. Acute kidney injury 5. History of DVT and PE 6. Diabetes mellitus 7. Hypertension 8. Bipolar disorder 1. As seen on chest x-ray. Patient is afebrile with no leukocytosis. Has vague complaints of cough without sputum. Start IV Rocephin and azithromycin by mouth. Follow sputum cultures. Follow blood cultures. O2 per nasal cannula to maintain an O2 saturation greater than 92%. 2. Concerns for cellulitis of the right upper extremity. Start Rocephin IV. Follow blood cultures. 3. Chloride 96, HCO3 39. Patient is not in respiratory distress. Possibly secondary to Lasix use at home. Hold diuretic. Follow BMP in the AM. 4. Creatinine 1.3 to likely secondary to dehydration. Continue normal saline at 100 mL/h. Follow BMP in the AM. 5. INR 2.9, therapeutic. Continue Coumadin, dosed by pharmacy. 6. A1c 6.2 in October 2018. [id number] glucose 80. Insulin sliding scale. Hypoglycemic precautions. Regular Accu-Cheks. 7. BP 154/84. Continue Coreg, hydralazine, isosorbide mononitrate. Monitor vitals, adjust medications as necessary. 8. Resume home medications. Management as per psychiatry. Patient admitted for IV antibiotics in treatment of community-acquired pneumonia and cellulitis. Patient is full code. Likely discharge in 1-2 days.
[2018-11-13] MEDS: INSULIN ASPART (NovoLOG) 100 UNIT/ML VIAL SQ SCH (17:04)
[2018-11-13] MEDS: GLIMEPIRIDE 2 MG TAB PO SCH (17:04)
[2018-11-13 17:06] LABS: Glucose,Whole Blood 72 mg/dL (75-99)
[2018-11-13] MEDS ORDERED: WARFARIN 2.5 MG TAB PO ONE (18:00)
[2018-11-13] MEDS: QUEtiapine 200 MG TAB PO SCH (20:47)
[2018-11-13] MEDS: ASPIRIN 81 MG PO SCH (20:47)
[2018-11-13] MEDS: ATORVASTATIN 80 MG TAB PO SCH (20:47)
[2018-11-13 20:49] LABS: Glucose,Whole Blood 96 mg/dL (75-99)
[2018-11-13] MEDS ORDERED: MELATONIN 5 MG TABLET PO PRN (22:49)
[2018-11-14] MEDS: SODIUM CHLORIDE 0.9% 1,000 ML IV SCH ×3 (01:54→19:56)
[2018-11-14 06:33] LABS: INR 3.6 (<1.2)
[2018-11-14 06:34] LABS: Glucose,Whole Blood 93 mg/dL (75-99)
[2018-11-14 06:34] LABS: Prothrombin Time 34.8 sec (9.0-12.0)
[2018-11-14] MEDS: INSULIN ASPART (NovoLOG) 100 UNIT/ML VIAL SQ SCH ×3 (06:36→17:33)
[2018-11-14] MEDS: GLIMEPIRIDE 2 MG TAB PO SCH ×2 (06:39→18:05)
[2018-11-14] MEDS: PANTOPRAZOLE 40 MG TABLET PO SCH (06:39)
[2018-11-14 06:44] LABS: Calcium 8.2 mg/dL (8.4-10.2); Potassium 3.6 mmol/L (3.5-5.1)
--- NOTE | 2018-11-14 08:30 | XR ---
EXAMINATION TYPE: XR chest 2V DATE OF EXAM: 11/14/2018 COMPARISON: Prior chest x-ray 11/13/2018 HISTORY: Pneumonia TECHNIQUE: Frontal and lateral views of the chest are obtained. FINDINGS: Patient is rotated and there are overlying cardiac leads. The heart is enlarged. No pneumo thorax or pleural effusion evident. Prominent lung volumes suggest underlying COPD. IMPRESSION: Cardiomegaly. Correlate for COPD.
[2018-11-14] MEDS: POTASSIUM CHLORIDE ER 20 MEQ TAB.ER PO SCH (08:32)
[2018-11-14] MEDS: ISOSORBIDE MONONITRATE ER 60 MG TAB.ER.24H PO SCH (08:32)
[2018-11-14] MEDS: AZITHROMYCIN 500 MG TAB PO SCH (08:32)
[2018-11-14] MEDS: FINASTERIDE 5 MG TAB PO SCH (08:32)
[2018-11-14] MEDS: OXYBUTYNIN CHLORIDE 5 MG TAB PO SCH (08:32)
[2018-11-14] MEDS: TAMSULOSIN 0.4 MG CAP.ER.24H PO SCH (08:32)
[2018-11-14] MEDS: hydrALAZINE HCL 50 MG TAB PO SCH ×3 (08:33→19:56)
[2018-11-14] MEDS: CARVEDILOL 12.5 MG TAB PO SCH (08:33)
[2018-11-14] MEDS ORDERED: FUROSEMIDE 40 MG TAB PO SCH (09:00)
[2018-11-14] MEDS ORDERED: WARFARIN 5 MG TAB PO SCH (09:00)
[2018-11-14] MEDS: BENZTROPINE MESYLATE 1 MG TAB PO SCH (09:40)
[2018-11-14] MEDS ORDERED: IPRATROPIUM-ALBUTEROL 3 ML NEB INHALATION PRN (10:53)
[2018-11-14 11:16] LABS: Glucose,Whole Blood 95 mg/dL (75-99)
[2018-11-14 12:24] LABS: ABG PCO2 54 mmHg (35-45); ABG PO2 111 mmHg (83-108)
[2018-11-14 12:25] LABS: ABG Base Excess 8.2 mmol/L; ABG HCO3 33 mmol/L (21-25); ABG Oxygen Saturation 98.5 % (94-97); ABG TCO2 35 mmol/L (19-24)
--- NOTE | 2018-11-14 12:54 | P.PN ---
Subjective Progress Note Date: 11/14/18 Principal diagnosis: Shortness of breath, delusions Patient seen and examined. No acute events overnight. Patient appears delusional as per nursing reports. Patient states that he does not feel well because he can't find his son. He denies any sort of chest pain today, though was complaining to the nurses about pleuritic type chest pain. Objective - Vital Signs Vital signs: Vital Signs Temp 97.7 F 11/14/18 12:08 Pulse 74 11/14/18 12:08 Resp 18 11/14/18 12:08 BP 143/73 11/14/18 12:08 Pulse Ox 100 11/14/18 12:08 Intake & Output 11/13/18 11/14/18 11/14/18 18:59 06:59 18:59 Intake Total 600 600 500 Output Total 1075 450 Balance 600 -475 50 Weight 91.626 kg 92.2 kg Intake: Intake, IV Titration 500 Amount Sodium Chloride 0.9% 1, 500 000 ml @ 100 mls/hr IV . Q10H [facility] Rx#:[id number] Oral 600 600 0 Output: Urine 1075 450 Straight 400 Other: Voiding Method Toilet Toilet # Voids 1 1 # Bowel Movements 1 1 - Exam General: [non toxic], [no distress], [appears at stated age] Derm: [warm], [dry] Head: [atraumatic], [normocephalic], [symmetric] Eyes: [EOMI], [no lid lag], [anicteric sclera] Mouth: [no lip lesion], [mucus membranes moist] Cardiovascular: [S1S2 reg], [no murmur], [positive DP pulse bilateral] Lungs: [Decreased breath sounds bilaterally with poor respiratory effort], [no rhonchi, no rales] , [no accessory muscle use] Abdominal: [soft], [ nontender to palpation], [no guarding], [no appreciable organomegaly] Ext: [no gross muscle atrophy], [no edema], [no contractures] Neuro: [Unable to effectively gauge], [involuntary hand movements] Psych: [Alert], [oriented] - Labs CBC & Chem 7: 11/13/18 10:40 11/14/18 05:53 Labs: Abnormal Lab Results - Last 24 Hours (Table) 11/13/18 11/14/18 11/14/18 Range/Units 16:58 05:53 05:53 PT 34.8 H (9.0-12.0) sec INR 3.6 H (<1.2) ABG pCO2 (35-45) mmHg ABG pO2 (83-108) mmHg ABG HCO3 (21-25) mmol/L ABG Total CO2 (19-24) mmol/L ABG O2 Saturation (94-97) % Carbon Dioxide 34 H (22-30) mmol/L BUN 28 H (9-20) mg/dL POC Glucose (mg/dL) 72 L (75-99) mg/dL Calcium 8.2 L (8.4-10.2) mg/dL 11/14/18 Range/Units 12:20 PT (9.0-12.0) sec INR (<1.2) ABG pCO2 54 H (35-45) mmHg ABG pO2 111 H (83-108) mmHg ABG HCO3 33 H (21-25) mmol/L ABG Total CO2 35 H (19-24) mmol/L ABG O2 Saturation 98.5 H (94-97) % Carbon Dioxide (22-30) mmol/L BUN (9-20) mg/dL POC Glucose (mg/dL) (75-99) mg/dL Calcium (8.4-10.2) mg/dL Assessment and Plan Assessment: Assessment and Plan 0. Delusions with history of bipolar disorder 1. Community-acquired pneumonia 2. COPD exacerbation 3. Cellulitis 4. Acute kidney injury 5. History of DVT and PE 6. Diabetes mellitus 7. Hypertension 0. Resume home medications. Follow psychiatry recommendations. 1. As seen on chest x-ray on admission, negative on repeat, low suspicion. Patient is afebrile with no leukocytosis. Has vague complaints of cough without sputum. Will discontinue Rocephin and complete 1 more day of azithromycin. Follow sputum cultures. Follow blood cultures. O2 per nasal cannula to maintain an O2 saturation greater than 92%. 2. Concerns by nursing for decreased breath sounds. Chest x-ray shows concerns for COPD. ABG performed, pH is within normal limits, bicarb is elevated showing compensation. Start DuoNeb 4 times a day scheduled and as needed for shortness of breath and wheezing. Start Solu-Medrol 60 mg IV every 6 hours. Follow pulmonology consultation. 3. No erythema noted in the right upper extremity. Low concern for cellulitis at this time. Patient is afebrile with no leukocytosis. Discontinue Rocephin. 4. Creatinine 1.3 to within normal limits likely secondary to dehydration. Continue normal saline at 100 mL/h. Follow BMP in the AM. 5. INR 2.9-3.6, therapeutic. Continue Coumadin, dosed by pharmacy. 6. A1c 6.2 in October 2018. Twilt-ha-ogmo glucose 95. Insulin sliding scale. Hypoglycemic precautions. Regular Accu-Cheks. 7. BP 143/73. Continue Coreg, hydralazine, isosorbide mononitrate. Monitor vitals, adjust medications as necessary. Patient admitted for IV antibiotics in treatment of community-acquired pneumonia and cellulitis. It appears the patient does not have pneumonia or cellulitis. Psychiatry consultation pending delusional thoughts.
[2018-11-14] MEDS: methylPREDNISolone SOD SUCCI 125 MG/2 ML VIAL IV SCH ×3 (13:14→22:49)
[2018-11-14] MEDS: IPRATROPIUM-ALBUTEROL 3 ML NEB INHALATION SCH ×3 (16:53→21:34)
[2018-11-14 17:31] LABS: Glucose,Whole Blood 107 mg/dL (75-99)
[2018-11-14] MEDS ORDERED: WARFARIN 0.5 MG TAB PO ONE (18:00)
[2018-11-14] MEDS: ASPIRIN 81 MG PO SCH (19:55)
[2018-11-14] MEDS: ATORVASTATIN 80 MG TAB PO SCH (19:56)
[2018-11-14] MEDS: QUEtiapine 200 MG TAB PO SCH (19:56)
[2018-11-14 21:13] LABS: Glucose,Whole Blood 142 mg/dL (75-99)
[2018-11-15 06:14] LABS: Glucose,Whole Blood 120 mg/dL (75-99)
[2018-11-15] MEDS: INSULIN ASPART (NovoLOG) 100 UNIT/ML VIAL SQ SCH ×3 (06:16→17:11)
[2018-11-15] MEDS: SODIUM CHLORIDE 0.9% 1,000 ML IV SCH (06:16)
[2018-11-15] MEDS: methylPREDNISolone SOD SUCCI 125 MG/2 ML VIAL IV SCH ×2 (06:21→11:23)
[2018-11-15] MEDS: GLIMEPIRIDE 2 MG TAB PO SCH ×2 (06:21→17:14)
[2018-11-15] MEDS: PANTOPRAZOLE 40 MG TABLET PO SCH (06:22)
[2018-11-15 07:48] LABS: INR 2.8 (<1.2); Prothrombin Time 27.4 sec (9.0-12.0)
[2018-11-15] MEDS: POTASSIUM CHLORIDE ER 20 MEQ TAB.ER PO SCH (08:34)
[2018-11-15] MEDS: hydrALAZINE HCL 50 MG TAB PO SCH ×3 (08:34→21:16)
[2018-11-15] MEDS: AZITHROMYCIN 500 MG TAB PO SCH (08:34)
[2018-11-15] MEDS: OXYBUTYNIN CHLORIDE 5 MG TAB PO SCH (08:34)
[2018-11-15] MEDS: BENZTROPINE MESYLATE 1 MG TAB PO SCH (08:34)
[2018-11-15] MEDS: TAMSULOSIN 0.4 MG CAP.ER.24H PO SCH (08:34)
[2018-11-15] MEDS: ISOSORBIDE MONONITRATE ER 60 MG TAB.ER.24H PO SCH (08:35)
[2018-11-15] MEDS: FINASTERIDE 5 MG TAB PO SCH (08:35)
[2018-11-15] MEDS: CARVEDILOL 12.5 MG TAB PO SCH (08:35)
[2018-11-15] MEDS: IPRATROPIUM-ALBUTEROL 3 ML NEB INHALATION SCH ×4 (09:05→20:59)
[2018-11-15 12:01] LABS: Glucose,Whole Blood 150 mg/dL (75-99)
--- NOTE | 2018-11-15 12:25 | P.CN ---
Psychiatric Consult - . Consult date: 11/15/18 Consult:: 11/14/18 15:16 Hallucinations Assessment and Plan Assessment: 60-year-old male with PMH of bipolar disorder, history of altered mental status due to urinary tract infection, history of DVT/PE, hypertension, COPD, CHF, diabetes mellitus, CAD presents to the ED for altered mental status and confusion. Majority of the history is obtained from the chart as there is no family at bedside and patient is unable to voice his concerns effectively. Patient reports that he has been "sleeping all the time" and "sad all the time". When prompted by nursing, patient reports that he is seeing and hearing things that aren't there but has been ongoing for a very long time. Patient also states that he has a decreased appetite and early satiety. Patient also reports that he is being taken an antibiotic through his PCP for a bladder infection and hematuria. As per ED documentation, patient is brought in today by family members for delusional thoughts and for changes in mentation. Apparently, symptoms of been ongoing for 4 days and got worse yesterday. Patient currently denies any headache, lower extremity edema, nausea, vomiting, fever, cough, chest pain, palpitations, changes in urination. He denies any dizziness, numbness/weakness/tingling of the extremities. Patient does report some shortness of breath with exertion. He also reports some constipation, last bowel movement 2 days ago. In the ED, patient was afebrile with no leukocytosis. Coagulation panel showed an INR of 2.9. CMP showed a chloride of 96, HCO3 of 39, BUN of 38 and creatinine of 1.32. Magnesium was 1.5. Urinalysis was negative for nitrite or leukocyte Estrace. UDS was positive for TCAs. Troponin was 0.015, EKG showing normal sinus rhythm. Chest x-ray shows cardiomegaly and COPD, focal density in the cardiac apex could represent atelectasis or infiltrate. CT of the brain was negative for any acute findings. Patient is admitted for treatment of pneumonia, IV antibiotics. Past Medical History Past Medical History: Heart Failure, COPD, Diabetes Mellitus, Deep Vein Thrombosis (DVT), Hyperlipidemia, Hypertension, Memory Impairment, Osteoarthritis (OA), Pneumonia, Prostate Disorder, Pulmonary Embolus (PE), Sleep Apnea/CPAP/BIPAP Additional Past Medical History / Comment(s): DVT and PE - pt unsure of how long ago - he is on coumadin History of Any Multi-Drug Resistant Organisms: MRSA Date of last positivie culture/infection: unsure thinks 2-3 years ago MDRO Source:: lungs/legs Past Surgical History: Heart Catheterization With Stent Additional Past Surgical History / Comment(s): 1 stent - pt unsure of exact year thinks over 5 yrs ago - pt states done at [facility] Past Anesthesia/Blood Transfusion Reactions: No Reported Reaction Date of Last Stent Placement:: unsure Past Psychological History: Anxiety, Bipolar, Depression Smoking Status: Former smoker Past Alcohol Use History: Rare Past Drug Use History: None Reported - Past Family History Mother Family Medical History: Myocardial Infarction (ME) Father Family Medical History: Renal Disease Additional Family Medical History / Comment(s): renal disease Medications and Allergies Home Medications Medication Instructions Recorded Confirmed Type Aspirin 81 mg PO HS 12/08/17 11/13/18 History Atorvastatin [Lipitor] 80 mg PO HS 12/08/17 11/13/18 History Benztropine Mesylate [Cogentin] 1 mg PO DAILY 12/08/17 11/13/18 History Carvedilol [Coreg] 12.5 mg PO DAILY 12/08/17 11/13/18 History Finasteride [Proscar] 5 mg PO DAILY 12/08/17 11/13/18 History Furosemide [Lasix] 40 mg PO DAILY 12/08/17 11/13/18 History Glimepiride [Amaryl] 2 mg PO AC-BID 12/08/17 11/13/18 History Isosorbide Mononitrate ER [Imdur] 60 mg PO DAILY 12/08/17 11/13/18 History Oxybutynin Chloride [Ditropan] 5 mg PO DAILY 12/08/17 11/13/18 History Pantoprazole [Protonix] 40 mg PO QAM 12/08/17 11/13/18 History Potassium Chloride [Klor-Con 20] 20 meq PO DAILY 12/08/17 11/13/18 History Tamsulosin [Flomax] 0.4 mg PO DAILY 12/08/17 11/13/18 History Warfarin [Coumadin] 5 mg PO DAILY 12/08/17 11/13/18 History carBAMazepine [TEGretol XR] 200 mg PO Q12H 12/08/17 11/13/18 History hydrALAZINE HCL [Apresoline] 50 mg PO TID 12/08/17 11/13/18 History QUEtiapine FUMARATE [SEROquel] 200 mg PO HS 11/13/18 11/13/18 History Allergies Allergy/AdvReac Type Severity Reaction Status Date / Time No Known Allergies Allergy Verified 11/13/18 10:28 Mental Status Examination - The patient presents alert, pleasant, and cooperative. There calmly seated without any agitated behavior. [He] reports that [his] mood is good. Affect is congruent and euthymic. [He] deny having any suicidal or homicidal ideation intent or plan. [He] denies any auditory or visual hallucinations. There is no evidence of any delusional thought content. [His] thought process is linear and goal-directed. [His] speech is fluent and nonpressured. [His] memory and concentration is grossly intact for the purposes of this session. Psychiatric impression: Continue on his current medications is not a candidate for [address] [place] [address] and may go to rehab without any psychiatric concerns. Next Psychiatric recommendations: Continue his medications as outlined above and is able to go to rehab Thank you so much for allowing me to participate in your most interesting patient. Paulie Patel D.O. PhD (1) Hallucinations Current Visit: Yes Status: Acute Code(s): R44.3 - HALLUCINATIONS, UNSPECIFIED SNOMED Code(s): 3598691 (2) Delirium due to general medical condition Current Visit: Yes Status: Acute Code(s): F05 - DELIRIUM DUE TO KNOWN PHYSIOLOGICAL CONDITION SNOMED Code(s): 4452910 Time with Patient: Less than 30
--- NOTE | 2018-11-15 16:03 | CONS ---
CONSULTATION This is a pulmonary critical care consultation. This is a 68-year-old male who presented to the emergency room on November 13. He apparently presented there with changes in his mental status. He apparently was thought to have mental status changes, secondary to sepsis and a urinary tract infection. We were consulted primarily for COPD. The patient apparently has been wearing oxygen for a number of years and apparently has quite severe COPD. [facility] He does not see a ski technician. He did apparently see one in the past. He has been intubated numerous times for his COPD apparently. Anyway, he is not here for his COPD and his daughter, who was at the bedside, seemed a little put out that we were seeing him for COPD. He is on oxygen at 3 L/minute 24/7. He does have nebulizer machine with albuterol and Spiriva HandiHaler versus Spiriva Handy haler, "when he can afford it." Apparently, the patient is chronically short of breath. Apparently denies any chest tightness, wheezing, coughing, phlegm production, etc. HOME MEDICATIONS: Include aspirin, Lipitor, Cogentin, Coreg, Proscar, Lasix, Amaryl, Imdur, Ditropan, Protonix, Klor-Con, Flomax, Coumadin, Tegretol, Apresoline, and Seroquel. Allergies are denied. In addition, according to the daughter, he is on albuterol updrafts as needed, the oxygen 24/7 is 3 L and Spiriva HandiHaler when he can afford it. PAST MEDICAL HISTORY: Apparently positive for congestive heart failure, severe COPD, diabetes mellitus, deep venous thrombosis, hyperlipidemia, hypertension, memory impairment, DJD, pneumonia and pulmonary embolism. He also apparently has a history of sleep apnea syndrome and is on CPAP. Other medical history includes a DVT. SURGICAL HISTORY: Includes among other things heart catheterization with stent placement. The patient apparently also has had ex respiratory failure requiring intubation and mechanical ventilation. SOCIAL HISTORY: Positive for previous heavy tobacco use. Does not smoke currently. Drinks rarely. No illicit drug use. FAMILY HISTORY: Positive for kidney disease and myocardial infarction. REVIEW OF SYSTEMS: CONSTITUTIONAL: Negative. NEUROLOGIC: Mental status changes. HEENT: Negative. CARDIOVASCULAR: Negative. PULMONARY: Chronic dyspnea on exertion. GI: Negative. : Urinary tract infection. IMMUNOLOGIC: Negative. DERMATOLOGIC: Negative. RHEUMATOLOGIC: Negative. PHYSICAL EXAMINATION: Current vital signs include a temperature of 98.1, heart rate 76, respiratory rate 18, blood pressure 138/72 mean 94 and 3 L saturation 95%. Appears in no acute distress. The patient is not very oriented. Answers questions in a very Sanjeev-Nillie way. He did answer some questions appropriately when asked specifically about his lung disease. He does seem confused. HEENT examination is grossly unremarkable. He is wearing nasal O2. NECK: Supple. Full range of motion. No adenopathy or thyromegaly. Neck veins are flat. Cardiovascular examination reveals regular rhythm and rate. Heart sounds are distant. S1, S2 normal. Lungs reveal relatively clear but severely diminished breath sounds. No wheezes or rhonchi, or crackles. Breath sounds equal. Abdomen is obese. Bowel sounds are heard. Extremities are intact. No cyanosis, clubbing, or edema. Skin without rash. Neurologic examination is difficult to assess. He does move all 4 extremities. LABS: Reviewed. White count 6.6, hemoglobin 15, hematocrit 46.5, platelet count 165,000. PT, INR was 27.4 and 2.8. Blood gas shows a PO2 of 111, pCO2 of 54, and pH is 7.40. His bicarbonate concentration on the blood gas was 33 on the electrolyte profile was 34. Using the Hebert formula and his electrolyte bicarbonate concentration of 34, his baseline PaCO2 is 34+ 17, which is 51+ 8, which is 59+/- 2. This is close to his CO2 of 54 and a blood gas. Sodium 139, potassium 3.6, chloride 99, CO2 of 34. Anion gap 6, BUN and creatinine were 28 and 1.18. The rest of the labs look okay. Urine looked clean actually. And the drug screen was positive for Tegretol and tricyclic antidepressants. Medications are reviewed. The patient's medications will be adjusted accordingly. The patient is only on updrafts which is appropriate. I discontinued the Solu-Medrol. The rest of the medications are reviewed and seem appropriate. It does not appear that he has a urinary tract infection. He is on Zithromax. I do not believe he needs for any respiratory issues. Will let the primary decide on that. ASSESSMENT: 1. Severe chronic obstructive pulmonary disease with chronic hypoxemia and chronic well-compensated hypercarbia. 2. Previous episodes of respiratory failure requiring intubation and mechanical ventilation. 3. Chronic hypoxemic respiratory failure. 4. Previous history of heavy tobacco use. 5. Mental status changes, currently being evaluated by the primary service. 6. Multiple other medical problems as delineated. From my perspective, the patient should be on short-acting beta agonist, which is albuterol used by either an inhaler or by nebulizer machine 3-4 times a day. He would benefit from either a short or long-acting muscarinic antagonist and in addition, the patient should probably be on a combination of long-acting beta agonist/inhaled corticosteroids such as Dulera, Breo, Advair or Symbicort. No additional recommendations are made. The patient's daughter does not seem to want to continue to follow the patient, seemed put off and will surprised that we came to see the patient. Therefore, will do the consultation and follow along, but not actually see the patient. MMLONDON / MARCINN: [id number] /
--- NOTE | 2018-11-15 16:07 | P.PN ---
Subjective Progress Note Date: 11/15/18 Principal diagnosis: Delirium Patient seen and examined. No acute events overnight. Patient reports no complaints today. He reports that he is back at his baseline. He denies any chest pain, shortness of breath or palpitations. He denies any dizziness, nausea or vomiting, fever or chills. No changes in urination or bowel habits. He continues to talk about his son. Of note, discussion with social work patient lives alone. Objective - Vital Signs Vital signs: Vital Signs Temp 98.1 F 11/15/18 12:00 Pulse 76 11/15/18 12:04 Resp 18 11/15/18 12:00 BP 138/72 11/15/18 12:00 Pulse Ox 95 11/15/18 12:00 Intake & Output 11/14/18 11/15/18 11/15/18 18:59 06:59 18:59 Intake Total 840 330 Output Total 450 850 400 Balance 390 -850 -70 Weight 85 kg Intake: Intake, IV Titration 500 Amount Sodium Chloride 0.9% 1, 500 000 ml @ 100 mls/hr IV . Q10H [facility] Rx#:[id number] Oral 340 330 Output: Urine 450 850 400 Other: Voiding Method Toilet Toilet Diaper Diaper # Voids 1 0 - Exam General: [non toxic], [no distress], [appears at stated age] Derm: [warm], [dry] Head: [atraumatic], [normocephalic], [symmetric] Eyes: [EOMI], [no lid lag], [anicteric sclera] Mouth: [no lip lesion], [mucus membranes moist] Cardiovascular: [S1S2 reg], [no murmur], [positive DP pulse bilateral] Lungs: [Decreased breath sounds bilaterally with poor respiratory effort], [no rhonchi, no rales] , [no accessory muscle use] Abdominal: [soft], [ nontender to palpation], [no guarding], [no appreciable organomegaly] Ext: [no gross muscle atrophy], [no edema], [no contractures] Neuro: [Unable to effectively gauge], [involuntary hand movements] Psych: [Alert], [oriented] - Labs CBC & Chem 7: 11/13/18 10:40 11/14/18 05:53 Labs: Abnormal Lab Results - Last 24 Hours (Table) 11/14/18 11/14/18 11/15/18 Range/Units 17:29 21:11 06:13 PT (9.0-12.0) sec INR (<1.2) POC Glucose (mg/dL) 107 H 142 H 120 H (75-99) mg/dL 11/15/18 11/15/18 Range/Units 06:46 11:44 PT 27.4 H (9.0-12.0) sec INR 2.8 H (<1.2) POC Glucose (mg/dL) 150 H (75-99) mg/dL Microbiology - Last 24 Hours (Table) 11/13/18 10:40 Blood Culture - Preliminary Blood No Growth after 48 hours Assessment and Plan Assessment: Assessment and Plan 0. Delusions with history of bipolar disorder 1. Community-acquired pneumonia 2. COPD exacerbation 3. Cellulitis 4. Acute kidney injury 5. History of DVT and PE 6. Diabetes mellitus 7. Hypertension 0. Resume home medications. Psychiatry consulted, recommends patient not appropriate for inpatient. 1. As seen on chest x-ray on admission, negative on repeat, low suspicion. Patient is afebrile with no leukocytosis. Has vague complaints of cough without sputum. Completed course of azithromycin for possible concerns of acute bronchitis. Follow sputum cultures. Blood cultures negative at 48 hours. O2 per nasal cannula to maintain an O2 saturation greater than 92%. 2. Concerns by nursing for decreased breath sounds. Chest x-ray shows concerns for COPD. ABG performed, pH is within normal limits, bicarb is elevated showing compensation. Start DuoNeb 4 times a day scheduled and as needed for shortness of breath and wheezing. Start Solu-Medrol 60 mg IV every 6 hours. Follow pulmonology consultation. 3. No erythema noted in the right upper extremity. Low concern for cellulitis at this time. Patient is afebrile with no leukocytosis. Discontinue Rocephin. 4. Creatinine 1.3 to within normal limits likely secondary to dehydration. DC IVF and encourage by mouth hydration. Follow BMP in the AM. 5. INR 2.9-3.6-2.8, therapeutic. Continue Coumadin, dosed by pharmacy. 6. A1c 6.2 in October 2018. [id number] glucose 150. Insulin sliding scale. Hypoglycemic precautions. Regular Accu-Cheks. 7. BP 130/72. Continue Coreg, hydralazine, isosorbide mononitrate. Monitor vitals, adjust medications as necessary. Patient admitted for IV antibiotics in treatment of community-acquired pneumonia and cellulitis. It appears the patient does not have pneumonia or cellulitis. Patient has been cleared by psychiatry. Concerns for patient and inability to take care of himself. He has been seen by PT and OT who recommended subacute rehab. Social work consult for placement pending.
[2018-11-15 16:36] LABS: Glucose,Whole Blood 111 mg/dL (75-99)
[2018-11-15] MEDS ORDERED: WARFARIN 5 MG TAB PO ONE (18:00)
[2018-11-15] MEDS: ATORVASTATIN 80 MG TAB PO SCH (20:09)
[2018-11-15] MEDS: ASPIRIN 81 MG PO SCH (20:09)
[2018-11-15] MEDS: QUEtiapine 200 MG TAB PO SCH (20:09)
[2018-11-15 20:34] LABS: Glucose,Whole Blood 99 mg/dL (75-99)
[2018-11-16 07:28] LABS: Glucose,Whole Blood 51 mg/dL (75-99)
[2018-11-16] MEDS: INSULIN ASPART (NovoLOG) 100 UNIT/ML VIAL SQ SCH ×2 (07:32→11:45)
[2018-11-16 07:46] LABS: Glucose,Whole Blood 63 mg/dL (75-99)
[2018-11-16] MEDS: IPRATROPIUM-ALBUTEROL 3 ML NEB INHALATION SCH ×2 (07:53→11:48)
[2018-11-16 08:03] LABS: Glucose,Whole Blood 105 mg/dL (75-99)
[2018-11-16] MEDS: PANTOPRAZOLE 40 MG TABLET PO SCH (08:30)
[2018-11-16 08:35] LABS: INR 2.3 (<1.2); Prothrombin Time 22.3 sec (9.0-12.0)
[2018-11-16 08:45] LABS: Potassium 4.2 mmol/L (3.5-5.1)
[2018-11-16] MEDS: TAMSULOSIN 0.4 MG CAP.ER.24H PO SCH (09:03)
[2018-11-16] MEDS: hydrALAZINE HCL 50 MG TAB PO SCH (09:03)
[2018-11-16] MEDS: POTASSIUM CHLORIDE ER 20 MEQ TAB.ER PO SCH (09:03)
[2018-11-16] MEDS: CARVEDILOL 12.5 MG TAB PO SCH (09:04)
[2018-11-16] MEDS: FINASTERIDE 5 MG TAB PO SCH (10:12)
[2018-11-16] MEDS: BENZTROPINE MESYLATE 1 MG TAB PO SCH (10:13)
[2018-11-16] MEDS: OXYBUTYNIN CHLORIDE 5 MG TAB PO SCH (10:13)
[2018-11-16] MEDS: ISOSORBIDE MONONITRATE ER 60 MG TAB.ER.24H PO SCH (10:13)
[2018-11-16 11:24] LABS: Glucose,Whole Blood 93 mg/dL (75-99)
[2018-11-16] MEDS: GLIMEPIRIDE 2 MG TAB PO SCH (11:24)
--- NOTE | 2018-11-16 11:42 | P.DS ---
Providers Date of admission: 11/13/18 14:41 Expected date of discharge: 11/16/18 Attending physician: Alesha Melendrez MD Consults: 11/13/18 14:36 Consult Physician Routine Consulting Provider: Paulie Patel Consult Reason/Comments: Hallucination Do you want consulting provider notified?: Yes 11/14/18 11:07 Consult Physician Routine Consulting Provider: Rocky Reno Consult Reason/Comments: COPD, diminished lung sounds Do you want consulting provider notified?: Yes Primary care physician: [facility] Course: 60-year-old male with PMH of bipolar disorder, history of altered mental status due to urinary tract infection, history of DVT/PE, hypertension, COPD, CHF, diabetes mellitus, CAD presents to the ED for altered mental status and confusion. Majority of the history is obtained from the chart as there is no family at bedside and patient is unable to voice his concerns effectively. Patient reports that he has been "sleeping all the time" and "sad all the time". When prompted by nursing, patient reports that he is seeing and hearing things that aren't there but has been ongoing for a very long time. Patient also states that he has a decreased appetite and early satiety. Patient also reports that he is being taken an antibiotic through his PCP for a bladder infection and hematuria. As per ED documentation, patient is brought in today by family members for delusional thoughts and for changes in mentation. Apparently, symptoms of been ongoing for 4 days and got worse yesterday. Patient currently denies any headache, lower extremity edema, nausea, vomiting, fever, cough, chest pain, palpitations, changes in urination. He denies any dizziness, numbness/weakness/tingling of the extremities. Patient does report some shortness of breath with exertion. He also reports some constipation, last bowel movement 2 days ago. In the ED, patient was afebrile with no leukocytosis. Coagulation panel showed an INR of 2.9. CMP showed a chloride of 96, HCO3 of 39, BUN of 38 and creatinine of 1.32. Magnesium was 1.5. Urinalysis was negative for nitrite or leukocyte Estrace. UDS was positive for TCAs. Troponin was 0.015, EKG showing normal sinus rhythm. Chest x-ray shows cardiomegaly and COPD, focal density in the cardiac apex could represent atelectasis or infiltrate. CT of the brain was negative for any acute findings. Patient is admitted for treatment of pneumonia, IV antibiotics. With regard to his delusions and history of bipolar disorder, psychiatry was consulted. Psychiatry recommended the patient was inappropriate for inpatient treatment and recommended continuation of current medications. Patient was initially seen for pneumonia that was seen on chest x-ray. Chest x- ray on day 2 showed signs of COPD and there is low suspicion for pneumonia. Patient was initially started on IV Rocephin and azithromycin by mouth for treatment and pneumonia. I Rocephin was discontinued and azithromycin was continued for a total of 3 days for concerns of acute bronchitis. Blood cultures were negative at 72 hours at the time of discharge. He was given O2 per nasal cannula to maintain O2 saturation greater than 92%. Patient did report that he has home oxygen and is on 3 L at home. Patient was started on DuoNeb 4 times a day scheduled and as needed for shortness of breath and wheezing. He was started on Solu-Medrol and transitioned to prednisone on discharge. There was also some concerns of cellulitis of the right upper extremity for which he was started on IV Rocephin. There is no erythema, patient had no fever or leukocytosis and antibiotics were discontinued. Physical therapy and occupational therapy was consulted and recommended the patient go to subacute rehab. Patient was seen and examined prior to discharge. No acute events overnight. Patient reports no symptoms this morning. He denies any chest pain, shortness of breath or palpitations. No nausea or vomiting. No fever or chills. No changes in urination or bowel habits. General: [non toxic], [no distress], [appears at stated age] Derm: [warm], [dry] Head: [atraumatic], [normocephalic], [symmetric] Eyes: [EOMI], [no lid lag], [anicteric sclera] Mouth: [no lip lesion], [mucus membranes moist] Cardiovascular: [S1S2 reg], [no murmur], [positive DP pulse bilateral] Lungs: [Decreased breath sounds bilaterally with poor respiratory effort], [no rhonchi, no rales] , [no accessory muscle use] Abdominal: [soft], [ nontender to palpation], [no guarding], [no appreciable organomegaly] Ext: [no gross muscle atrophy], [no edema], [no contractures] Neuro: [Unable to effectively gauge], [involuntary hand movements] Psych: [Alert], [oriented] Assessment and Plan 0. Delusions with history of bipolar disorder 1. Community-acquired pneumonia 2. COPD exacerbation 3. Cellulitis 4. Acute kidney injury 5. History of DVT and PE 6. Diabetes mellitus 7. Hypertension 0. Resume home medications. Psychiatry consulted, recommends patient not appropriate for inpatient. 1. As seen on chest x-ray on admission, negative on repeat, low suspicion. Patient is afebrile with no leukocytosis. Has vague complaints of cough without sputum. Completed course of azithromycin for possible concerns of acute bronchitis. Follow sputum cultures. Blood cultures negative at 48 hours. O2 per nasal cannula to maintain an O2 saturation greater than 92%. 2. Concerns by nursing for decreased breath sounds. Chest x-ray shows concerns for COPD. ABG performed, pH is within normal limits, bicarb is elevated showing compensation. Start DuoNeb 4 times a day scheduled and as needed for shortness of breath and wheezing. Transition Solu-Medrol to prednisone. Follow pulmonology consultation. 3. No erythema noted in the right upper extremity. Low concern for cellulitis at this time. Patient is afebrile with no leukocytosis. Discontinue Rocephin. 4. Creatinine 1.3 to within normal limits likely secondary to dehydration. DC IVF and encourage by mouth hydration. Follow BMP in the AM. 5. INR 2.9-3.6-2.8-2.3, therapeutic. Continue Coumadin, dosed by pharmacy. 6. A1c 6.2 in October 2018. [id number] glucose 93. Insulin sliding scale. Hypoglycemic precautions. Regular Accu-Cheks. 7. BP 152/76. Continue Coreg, hydralazine, isosorbide mononitrate. Monitor vitals, adjust medications as necessary. Patient admitted for IV antibiotics in treatment of community-acquired pneumonia and cellulitis. It appears the patient does not have pneumonia or cellulitis. Patient has been cleared by psychiatry. Concerns for patient and inability to take care of himself. He has been seen by PT and OT who recommended subacute rehab. Accepted to [facility]. This discharge took greater than 30 minutes. Pertinent Studies: Brain CTs, chest x-ray Patient Condition at Discharge: Serious Plan - Discharge Summary New Discharge Prescriptions: New Tiotropium 18 Mcg/Puff [Spiriva] 1 puff INHALATION DAILY #1 inhaler Budesonide-Formot 160-4.5 Mcg [Symbicort 160-4.5 Mcg Inhaler] 2 puff INHALATION BID #1 inhaler Albuterol Inhaler [Ventolin Hfa Inhaler] 1 - 2 puff INHALATION RT-Q6H PRN #1 inhaler PRN Reason: Shortness Of Breath Continue hydrALAZINE HCL [Apresoline] 50 mg PO TID carBAMazepine [TEGretol XR] 200 mg PO Q12H Warfarin [Coumadin] 5 mg PO DAILY Carvedilol [Coreg] 12.5 mg PO DAILY Aspirin 81 mg PO HS Tamsulosin [Flomax] 0.4 mg PO DAILY Potassium Chloride [Klor-Con 20] 20 meq PO DAILY Pantoprazole [Protonix] 40 mg PO QAM Oxybutynin Chloride [Ditropan] 5 mg PO DAILY Isosorbide Mononitrate ER [Imdur] 60 mg PO DAILY Glimepiride [Amaryl] 2 mg PO AC-BID Furosemide [Lasix] 40 mg PO DAILY Finasteride [Proscar] 5 mg PO DAILY Benztropine Mesylate [Cogentin] 1 mg PO DAILY Atorvastatin [Lipitor] 80 mg PO HS QUEtiapine FUMARATE [SEROquel] 200 mg PO HS Discharge Medication List Aspirin 81 mg PO HS 12/08/17 [History] Atorvastatin [Lipitor] 80 mg PO HS 12/08/17 [History] Benztropine Mesylate [Cogentin] 1 mg PO DAILY 12/08/17 [History] Carvedilol [Coreg] 12.5 mg PO DAILY 12/08/17 [History] Finasteride [Proscar] 5 mg PO DAILY 12/08/17 [History] Furosemide [Lasix] 40 mg PO DAILY 12/08/17 [History] Glimepiride [Amaryl] 2 mg PO AC-BID 12/08/17 [History] Isosorbide Mononitrate ER [Imdur] 60 mg PO DAILY 12/08/17 [History] Oxybutynin Chloride [Ditropan] 5 mg PO DAILY 12/08/17 [History] Pantoprazole [Protonix] 40 mg PO QAM 12/08/17 [History] Potassium Chloride [Klor-Con 20] 20 meq PO DAILY 12/08/17 [History] Tamsulosin [Flomax] 0.4 mg PO DAILY 12/08/17 [History] Warfarin [Coumadin] 5 mg PO DAILY 12/08/17 [History] carBAMazepine [TEGretol XR] 200 mg PO Q12H 12/08/17 [History] hydrALAZINE HCL [Apresoline] 50 mg PO TID 12/08/17 [History] QUEtiapine FUMARATE [SEROquel] 200 mg PO HS 11/13/18 [History] Albuterol Inhaler [Ventolin Hfa Inhaler] 1 - 2 puff INHALATION RT-Q6H PRN #1 inhaler 11/16/18 [Rx] Budesonide-Formot 160-4.5 Mcg [Symbicort 160-4.5 Mcg Inhaler] 2 puff INHALATION BID #1 inhaler 11/16/18 [Rx] Tiotropium 18 Mcg/Puff [Spiriva] 1 puff INHALATION DAILY #1 inhaler 11/16/18 [Rx] Follow up Appointment(s)/Referral(s): Cintia Sarmiento MD [Primary Care Provider] - 12/05/18 11:30 am (Monday -previously scheduled appointment. if earlier appointment becomes available they will call you) Rocky Reno DO [Doctor of Osteopathic Medicine] - 1 Week Ambulatory/Diagnostic Orders: Basic Metabolic Panel [LAB.AMB] Time Frame: 3 Days, Location: None Selected Activity/Diet/Wound Care/Special Instructions: [place] Please take all medications as advised. Follow-up with PCP within 1-2 days of discharge. Follow-up with pulmonology within 1 week of discharge. Take all medications as advised. Discharge Disposition: TRANSFER TO SNF/ECF
[2018-11-16 12:56] VITALS: RESP 14
[2018-11-16 13:11] VITALS: BP 118/65; PULSE 86; TEMP 98.4
[2018-11-16] MEDS ORDERED: WARFARIN 5 MG TAB PO ONE (18:00)
--- NOTE | 2018-11-20 09:21 | CDI ---
Documentation Clarification Form Date: 11/20/2018 8:05:00 AM From: Dodie Mitchell Carolyn Beard, Communications Executive Hours-8:30 am & 5 pm MGodwin Admit Date: 11/13/2018 2:41:00 PM Patient Name: Toy Regalado Visit Number: [id number] Discharge Date: 11/16/2018 3:10:00 PM ATTENTION: The Clinical Documentation Specialists (CDI) and [facility] Coding Staff appreciate your assistance in clarifying documentation. Please respond to the clarification below the line at the bottom and electronically sign. The CDI & [facility] Coding staff will review the response and follow-up if needed. Please note: Queries are made part of the Legal Health Record. If you have any questions, please contact the author of this message via ITS. Dr. Alesha Melendrez Pneumonia is documented in PN, DS, Consult Hospital Course: Patient admitted for treatment of PNA, IV abx. Assesment and plan: Patient admitted for IV Abx in treatment of community acquired PNA and cellulitis. It appears the patient does not have PNA or cellulitis. History/Risk Factors: COPD, Acute Bronchitis Clinical Indicators: WBC 6.6, ABG Total CO2 35 X-ray: Day 2- shows COPD and low suspicion for PNA Treatment: IV Abx O2: Nasal Cannula 2 lpm Breathing Tx: Hand Nebulizer In order to capture the severity of condition, please clarify if the condition is: Pneumonia ruled in Pneumonia ruled out Other, please specify Unable to determine PNA ruled out MTDD
== END 2018-11-16 15:10 | DRG 191 ==
LOC: EC 09:49 → 4MS4W 14:41 → 3NMEDONC 22:13 → 3SCARD 22:33 → 3NMEDONC 11-15 21:39
PROVIDERS: ADMIT Family Medicine; ATTEND Family Medicine
DX: J44.0 Chronic obstructive pulmonary disease with (acute) lower respiratory infection (principal); N17.9 Acute kidney failure, unspecified; E87.3 Alkalosis; J96.11 Chronic respiratory failure with hypoxia; F05 Delirium due to known physiological condition; R44.3 Hallucinations, unspecified; L03.113 Cellulitis of right upper limb; I50.9 Heart failure, unspecified; I11.0 Hypertensive heart disease with heart failure; J44.1 Chronic obstructive pulmonary disease with (acute) exacerbation; F31.9 Bipolar disorder, unspecified; G47.30 Sleep apnea, unspecified; E78.5 Hyperlipidemia, unspecified; J20.9 Acute bronchitis, unspecified; E11.9 Type 2 diabetes mellitus without complications; N42.9 Disorder of prostate, unspecified; M19.90 Unspecified osteoarthritis, unspecified site; E86.0 Dehydration; K59.00 Constipation, unspecified; I25.10 Atherosclerotic heart disease of native coronary artery without angina pectoris; E66.9 Obesity, unspecified; Z68.32 Body mass index [BMI] 32.0-32.9, adult; F41.9 Anxiety disorder, unspecified; Z79.82 Long term (current) use of aspirin; Z79.899 Other long term (current) drug therapy; Z79.84 Long term (current) use of oral hypoglycemic drugs; Z79.01 Long term (current) use of anticoagulants; Z87.891 Personal history of nicotine dependence; Z99.81 Dependence on supplemental oxygen; Z87.440 Personal history of urinary (tract) infections; Z86.711 Personal history of pulmonary embolism; Z86.718 Personal history of other venous thrombosis and embolism; Z86.14 Personal history of Methicillin resistant Staphylococcus aureus infection; Z95.5 Presence of coronary angioplasty implant and graft; Z82.49 Family history of ischemic heart disease and other diseases of the circulatory system; Z84.1 Family history of disorders of kidney and ureter
CPT/HCPCS: 36415; 36600; 70450; 71046; 80048; 80053; 80156; 80306; 81003; 82140; 82550; 82805; 83605; 83735; 84484; 85025; 85610; 85730; 87040; 93005; 94640; 94760; 94762; 96361; 96365; 96367; 96375; 99285

== ENCOUNTER 2018-12-17 14:23 | Inpatient (IN) | payer MEDICARE ==
--- NOTE | 2018-12-17 15:49 | ED ---
Psych HPI - General Source: patient, EMS Mode of arrival: EMS Limitations: no limitations <West Almodovar - Last Filed: 12/17/18 15:47> <Madisyn Roy - Last Filed: 12/17/18 18:57> - General Chief Complaint: Psychiatric Symptoms Stated Complaint: Mental Health Time Seen by Provider: 12/17/18 14:34 - History of Present Illness Initial Comments: 60-year-old male presents emergency Department with chief complaint of needing psychiatric evaluation. Patient states that he does have underlying bipolar disorder and states that he has been in out of different living environment recently. He states that he returns as own place states that he having infection in which she was admitted for. Patient states he has been stable states that he was discharged from our with after treatment. Patient states that he went home to live with his daughter states that he's been having trouble bear because the neighbor had an argument and felt that he did not long in the area and called his doctor. Patient states he knows he has Bipolar disorder and states that he talks a lot but states he's not suicidal or homicidal. Patient states that his daughter told him that he may need another evaluation for psych problems. (West Almodovar) - Related Data Home Medications Medication Instructions Recorded Confirmed Aspirin 81 mg PO HS 12/08/17 12/17/18 Atorvastatin [Lipitor] 80 mg PO HS 12/08/17 12/17/18 Benztropine Mesylate [Cogentin] 1 mg PO DAILY 12/08/17 12/17/18 Carvedilol [Coreg] 12.5 mg PO DAILY 12/08/17 12/17/18 Finasteride [Proscar] 5 mg PO DAILY 12/08/17 12/17/18 Furosemide [Lasix] 40 mg PO DAILY 12/08/17 12/17/18 Glimepiride [Amaryl] 2 mg PO AC-BID 12/08/17 12/17/18 Isosorbide Mononitrate ER [Imdur] 60 mg PO DAILY 12/08/17 12/17/18 Oxybutynin Chloride [Ditropan] 5 mg PO DAILY 12/08/17 12/17/18 Pantoprazole [Protonix] 40 mg PO QAM 12/08/17 12/17/18 Potassium Chloride [Klor-Con 20] 20 meq PO DAILY 12/08/17 12/17/18 Tamsulosin [Flomax] 0.4 mg PO DAILY 12/08/17 12/17/18 Warfarin [Coumadin] 5 mg PO DAILY 12/08/17 12/17/18 carBAMazepine [TEGretol XR] 200 mg PO Q12H 12/08/17 12/17/18 hydrALAZINE HCL [Apresoline] 50 mg PO TID 12/08/17 12/17/18 QUEtiapine FUMARATE [SEROquel] 200 mg PO HS 11/13/18 12/17/18 Budesonide-Formot 160-4.5 Mcg 2 puff INHALATION RT-BID 12/17/18 12/17/18 [Symbicort 160-4.5 Mcg Inhaler] Previous Rx's Medication Instructions Recorded Albuterol Inhaler [Ventolin Hfa 1 - 2 puff INHALATION RT-Q6H PRN 11/16/18 Inhaler] #1 inhaler Tiotropium 18 Mcg/Puff [Spiriva] 1 puff INHALATION DAILY #1 inhaler 11/16/18 Allergies Allergy/AdvReac Type Severity Reaction Status Date / Time No Known Allergies Allergy Verified 12/17/18 14:49 Review of Systems ROS Other: All systems not noted in ROS Statement are negative. <West Almodovar - Last Filed: 12/17/18 15:47> ROS Other: All systems not noted in ROS Statement are negative. <Madisyn Roy - Last Filed: 12/17/18 18:57> ROS Statement: Those systems with pertinent positive or pertinent negative responses have been documented in the HPI. Past Medical History Past Medical History: Heart Failure, COPD, Diabetes Mellitus, Deep Vein Thrombosis (DVT), Hyperlipidemia, Hypertension, Memory Impairment, Osteo arthritis (OA), Pneumonia, Pulmonary Embolus (PE), Sleep Apnea/CPAP/BIPAP Additional Past Medical History / Comment(s): DVT and PE - pt unsure of how long ago - he is on coumadin History of Any Multi-Drug Resistant Organisms: MRSA Date of last positivie culture/infection: unsure thinks 2-3 years ago MDRO Source:: lungs/legs Past Surgical History: Heart Catheterization With Stent Additional Past Surgical History / Comment(s): 1 stent - pt unsure of exact year thinks over 5 yrs ago - pt states done at [facility] Past Anesthesia/Blood Transfusion Reactions: No Reported Reaction Date of Last Stent Placement:: unsure Past Psychological History: Anxiety, Bipolar, Depression Smoking Status: Former smoker Past Alcohol Use History: None Reported Past Drug Use History: None Reported - Past Family History Mother Family Medical History: Myocardial Infarction (GA) Father Family Medical History: Renal Disease Additional Family Medical History / Comment(s): renal disease <West Almodovar - Last Filed: 12/17/18 15:47> General Exam Limitations: no limitations General appearance: alert, in no apparent distress Head exam: Present: atraumatic, normocephalic, normal inspection Neck exam: Present: normal inspection, full ROM. Absent: tenderness, meningismus, lymphadenopathy Respiratory exam: Present: normal lung sounds bilaterally. Absent: respiratory distress, wheezes, rales, rhonchi, stridor Cardiovascular Exam: Present: regular rate, normal rhythm, normal heart sounds. Absent: systolic murmur, diastolic murmur, rubs, gallop, clicks GI/Abdominal exam: Present: soft, normal bowel sounds. Absent: distended, tenderness, guarding, rebound, rigid Neurological exam: Present: alert, oriented X3, CN II-XII intact. Absent: motor sensory deficit Psychiatric exam: Present: normal affect, normal mood Skin exam: Present: warm, dry, intact, normal color. Absent: rash <West Almodovar - Last Filed: 12/17/18 15:47> Course Vital Signs 12/17/18 12/17/18 12/17/18 14:25 15:32 17:59 Temperature 97.9 F Pulse Rate 72 67 73 Respiratory 16 16 181 H Rate Blood Pressure 155/79 136/74 138/87 O2 Sat by Pulse 96 98 93 L Oximetry Medical Decision Making <Madisyn Roy - Last Filed: 12/17/18 18:57> - Medical Decision Making is a 68-year-old male signed out to me by [place] for concerns for needing psychiatric evaluation. Patient was evaluated by EPS, was determined to be inpatient treatment. Patient will be admitted signs in voluntarily. (Madisyn Roy) - Lab Data Lab Results 12/17/18 12/17/18 Range/Units 13:45 13:45 Urine Color Yellow Urine Appearance Clear (Clear) Urine pH 5.5 (5.0-8.0) Ur Specific [place] 1.019 (1.001-1.035) Urine Protein Negative (Negative) Urine Glucose (UA) Negative (Negative) Urine Ketones Negative (Negative) Urine Blood Negative (Negative) Urine Nitrite Negative (Negative) Urine Bilirubin Negative (Negative) Urine Urobilinogen <2.0 (<2.0) mg/dL Ur Leukocyte Esterase Negative (Negative) Urine Opiates Screen Not Detected (NotDetected) Ur Oxycodone Screen Not Detected (NotDetected) Urine Methadone Screen Not Detected (NotDetected) Ur Propoxyphene Screen Not Detected (NotDetected) Ur Barbiturates Screen Not Detected (NotDetected) U Tricyclic Antidepress Detected H (NotDetected) Ur Phencyclidine Scrn Not Detected (NotDetected) Ur Amphetamines Screen Not Detected (NotDetected) U Methamphetamines Scrn Not Detected (NotDetected) U Benzodiazepines Scrn Not Detected (NotDetected) Urine Cocaine Screen Not Detected (NotDetected) U Marijuana (THC) Screen Not Detected (NotDetected) Disposition <West Almodovar - Last Filed: 12/17/18 15:47> <Madisyn Roy - Last Filed: 12/17/18 18:57> Clinical Impression: Bipolar disorder Disposition: ADMITTED IP TO THIS [facility] Condition: Stable
[2018-12-17 16:21] LABS: Cocaine Screen,Urine Not Detected (NotDetected); Phencyclidine Screen,Urine Not Detected (NotDetected); Urn Cannabinoid Scrn Not Detected (NotDetected)
[2018-12-17 16:22] LABS: Amphetamine Screen,Urine Not Detected (NotDetected); Barbiturate Screen,Urine Not Detected (NotDetected); Benzodiazepines Screen,Urine Not Detected (NotDetected); Methadone Screen, Urine Not Detected (NotDetected); Opiate Screen,Urine Not Detected (NotDetected); Oxycodone Screen, Urine Not Detected (NotDetected); Tricyclic Antidepressant,Urine Detected (NotDetected)
[2018-12-17 18:39] LABS: Appearance,Urine Clear (Clear); Bilirubin,Urine Negative (Negative); Blood,Urine Negative (Negative); Color,Urine Yellow; Glucose,Urine (UA) Negative (Negative); Ketones,Urine Negative (Negative); Leukocyte Esterase,Urine Negative (Negative); Nitrite,Urine Negative (Negative); PH, Urine 5.5 (5.0-8.0); Protein,Urine Negative (Negative); Specific Gravity,Urine 1.019 (1.001-1.035); Urobilinogen,Urine <2.0 mg/dL (<2.0)
[2018-12-17] MEDS ORDERED: MAG HYDROX/AL HYDROX/SIMETH 30 ML CUP PO PRN (19:34)
[2018-12-17] MEDS ORDERED: LORazepam 1 MG TAB PO PRN (19:34)
[2018-12-17] MEDS ORDERED: MAGNESIUM HYDROXIDE 2,400 MG/10 ML CUP PO PRN (19:34)
[2018-12-17] MEDS ORDERED: ZIPRASIDONE 20 MG VIAL IM PRN (19:34)
[2018-12-17] MEDS ORDERED: LORazepam 2 MG/ML INJ IM PRN (19:36)
[2018-12-17] MEDS: ACETAMINOPHEN TAB 325 MG TAB PO PRN (20:43)
[2018-12-17] MEDS: ASPIRIN 81 MG PO SCH (20:43)
[2018-12-17] MEDS: ATORVASTATIN 80 MG TAB PO SCH (20:43)
[2018-12-17] MEDS: QUEtiapine 200 MG TAB PO SCH (20:43)
[2018-12-17] MEDS: hydrALAZINE HCL 50 MG TAB PO SCH (20:43)
[2018-12-17] MEDS: SYMBICORT 160-4.5 MCG INHALER INHALATION SCH (20:52)
[2018-12-17 21:16] LABS: INR 1.5 (<1.2); Prothrombin Time 15.5 sec (9.0-12.0)
--- NOTE | 2018-12-17 22:30 | P.MDCNMH ---
History of Present Illness H&P Date: 12/17/18 Chief Complaint: medical management 68 year old male with history of bipolar disorder, blood clots on coumadin , DM Psychiatric evaluation, his daughter brought patient to the hospital for evaluation of a manic episode. Patient is difficult to become very talkative when he is having manic episode. He denies any hallucinations denies any suicidal or homicidal ideation he reports to be compliant with medications. He was recently hospitalized over a month ago for UTI since then he has been living with his daughter. Is taking care of him. In the past she reports falling when he was living alone but not anymore since she's been living with his daughter he reports that his most recent fall was in around [place]. Patient uses a walker for ambulation. When he was brought in today by ambulance he he tripped and fell but denies any head injury or loss of consciousness however resulted in some superficial scraping over his left leg. Patient otherwise denies any bleeding any coughing any chest pain trouble breathing fevers or chills. Patient uses oxygen at 2 L/m for his end stage copd Review of Systems Pertinent positives as noted in HPI. All other systems were reviewed and are negative Past Medical History Past Medical History: Heart Failure, COPD, Diabetes Mellitus, Deep Vein Thrombosis (DVT), Hyperlipidemia, Hypertension, Memory Impairment, Osteoarthritis (OA), Pneumonia, Pulmonary Embolus (PE), Sleep Apnea/CPAP/BIPAP Additional Past Medical History / Comment(s): DVT and PE - pt unsure of how long ago - he is on coumadin History of Any Multi-Drug Resistant Organisms: MRSA Date of last positivie culture/infection: unsure thinks 2-3 years ago MDRO Source:: lungs/legs Past Surgical History: Heart Catheterization With Stent Additional Past Surgical History / Comment(s): 1 stent - pt unsure of exact year thinks over 5 yrs ago - pt states done at [facility] Past Anesthesia/Blood Transfusion Reactions: No Reported Reaction Date of Last Stent Placement:: unsure Past Psychological History: Anxiety, Bipolar, Depression Smoking Status: Former smoker Past Alcohol Use History: None Reported Past Drug Use History: None Reported - Past Family History Mother Family Medical History: Myocardial Infarction ([place]) Father Family Medical History: Renal Disease Additional Family Medical History / Comment(s): renal disease Medications and Allergies Home Medications Medication Instructions Recorded Confirmed Type Aspirin 81 mg PO HS 12/08/17 12/17/18 History Atorvastatin [Lipitor] 80 mg PO HS 12/08/17 12/17/18 History Benztropine Mesylate [Cogentin] 1 mg PO DAILY 12/08/17 12/17/18 History Carvedilol [Coreg] 12.5 mg PO DAILY 12/08/17 12/17/18 History Finasteride [Proscar] 5 mg PO DAILY 12/08/17 12/17/18 History Furosemide [Lasix] 40 mg PO DAILY 12/08/17 12/17/18 History Glimepiride [Amaryl] 2 mg PO AC-BID 12/08/17 12/17/18 History Isosorbide Mononitrate ER [Imdur] 60 mg PO DAILY 12/08/17 12/17/18 History Oxybutynin Chloride [Ditropan] 5 mg PO DAILY 12/08/17 12/17/18 History Pantoprazole [Protonix] 40 mg PO QAM 12/08/17 12/17/18 History Potassium Chloride [Klor-Con 20] 20 meq PO DAILY 12/08/17 12/17/18 History Tamsulosin [Flomax] 0.4 mg PO DAILY 12/08/17 12/17/18 History Warfarin [Coumadin] 5 mg PO DAILY 12/08/17 12/17/18 History carBAMazepine [TEGretol XR] 200 mg PO Q12H 12/08/17 12/17/18 History hydrALAZINE HCL [Apresoline] 50 mg PO TID 12/08/17 12/17/18 History QUEtiapine FUMARATE [SEROquel] 200 mg PO HS 11/13/18 12/17/18 History Albuterol Inhaler [Ventolin Hfa 1 - 2 puff INHALATION RT-Q6H PRN 11/16/18 12/17/18 Rx Inhaler] #1 inhaler Tiotropium 18 Mcg/Puff [Spiriva] 1 puff INHALATION DAILY #1 inhaler 11/16/18 12/17/18 Rx Budesonide-Formot 160-4.5 Mcg 2 puff INHALATION RT-BID 12/17/18 12/17/18 History [Symbicort 160-4.5 Mcg Inhaler] Allergies Allergy/AdvReac Type Severity Reaction Status Date / Time No Known Allergies Allergy Verified 12/17/18 14:49 Physical Exam Vitals: Vital Signs Temp Pulse Pulse Resp BP BP Pulse Ox 12/17/18 20:38 82 22 190/86 91 L 12/17/18 19:37 97.2 F L 79 18 188/97 90 L 12/17/18 19:36 93 L 12/17/18 17:59 73 181 H 138/87 93 L 12/17/18 15:32 67 16 136/74 98 12/17/18 14:25 97.9 F 72 16 155/79 96 Intake and Output 12/17/18 12/17/18 12/17/18 06:59 14:59 22:59 Other: Weight 93.894 kg Constitutional: No acute distress, conversant, pleasant, using oxygen through nasal cannula Eyes: Anicteric sclerae, moist conjunctiva, no lid-lag Pupils equal round reactive to light ENMT: NC/AT Oropharynx clear, no erythema, exudates Neck: Supple, FROM, no masses, or JVD No carotid bruits No thyromegaly Lungs: Distant breath sounds no wheezing or rhonchi or rales Clear to percussion Normal respiratory effort, no accessory muscle use Cardiovascular: Heart regular in rate and rhythm, No murmurs, gallops, or rubs No peripheral edema Abdominal: Soft Nontender, no guarding, rebound or rigidity Abdomen moving with respiration Normoactive bowel sounds No hepatomegaly, No splenomegaly No palpable mass No abdominal wall hernia noted Skin: Normal temperature, tone, texture, turgor No induration No subcutaneous nodules No rash, lesions Superficial skin scraping over mid anterior left leg, no tenderness no active bleeding noted induration no erythema Extremities: No digital cyanosis No clubbing Pedal pulses intact and symmetrical Radial pulses intact and symmetrical No calf tenderness Psychiatric: Alert and oriented to person, place and time Appropriate affect fair judgment Neuro Muscles Strength 5/5 in all 4 extremities Sensation to light touch grossly present throughout Cranial nerves II-XII grossly intact No focal sensory deficits Lymphatics: no palpable cervical or supraclavicular , or inguinal lymph nodes Cranial Nerve Examination - Cranial Nerves Cranial Nerve II- Optic: Intact Cranial Nerve III- Oculomotor: Intact Cranial Nerve IV- Trochlear: Intact Cranial Nerve V- Trigeminal: Intact Cranial Nerve - Abducens: Intact Cranial Nerve VII- Facial: Intact Cranial Nerve VIII- Auditory: Intact Cranial Nerve IX- Glossopharyngeal: Intact Cranial Nerve X- Vagus: Intact Cranial Nerve XI- Accessory: Intact Cranial Nerve XII- Hypoglossal: Intact Results Labs: Abnormal Lab Results - Last 24 Hours (Table) 12/17/18 12/17/18 Range/Units 13:45 20:20 PT 15.5 H (9.0-12.0) sec INR 1.5 H (<1.2) U Tricyclic Antidepress Detected H (NotDetected) Assessment and Plan Assessment: 68-year-old male with history of bipolar disorder, diabetes mellitus, venous thromboembolic him on Coumadin. Admitted under psychiatry for evaluation for possible manic episode. Patient claims to be compliant with his medications. Currently denies any active medical problems or concerns Plan: bipolar disorder Management per psych history of venous thromboembolic Patient chronically on Coumadin Currently INR is subtherapeutic Coumadin to be dosed by pharmacy to achieve therapeutic range of INR 2-3 Chronic conditions Diabetes mellitus, continue home meds monitor blood sugar History COPD on home oxygen, continue with inhalers History of CAD continue with home meds BPH continue home meds DVT prophylaxis patient is already on Coumadin due to history of venous thromboembolism Thank you for allowing us to participate in the care of this patient. We will follow peripherally. Do not hesitate to contact us with questions. Someone can be reached from the [facility] hospitalist group at all hours of the day at [phone].
[2018-12-17 23:54] LABS: Glucose,Whole Blood 123 mg/dL (75-99)
[2018-12-18 05:41] LABS: Glucose,Whole Blood 79 mg/dL (75-99)
[2018-12-18] MEDS: CARVEDILOL 12.5 MG TAB PO SCH (08:00)
[2018-12-18] MEDS: BENZTROPINE MESYLATE 1 MG TAB PO SCH (08:00)
[2018-12-18] MEDS: GLIMEPIRIDE 2 MG TAB PO SCH ×2 (08:00→17:53)
[2018-12-18] MEDS: FINASTERIDE 5 MG TAB PO SCH (08:02)
[2018-12-18] MEDS: hydrALAZINE HCL 50 MG TAB PO SCH ×3 (08:02→21:19)
[2018-12-18] MEDS: FUROSEMIDE 40 MG TAB PO SCH (08:02)
[2018-12-18] MEDS: PANTOPRAZOLE 40 MG TABLET PO SCH (08:03)
[2018-12-18] MEDS: POTASSIUM CHLORIDE ER 20 MEQ TAB.ER PO SCH (08:03)
[2018-12-18] MEDS: OXYBUTYNIN CHLORIDE 5 MG TAB PO SCH (08:03)
[2018-12-18] MEDS: TAMSULOSIN 0.4 MG CAP.ER.24H PO SCH (08:03)
[2018-12-18] MEDS: ISOSORBIDE MONONITRATE ER 60 MG TAB.ER.24H PO SCH (08:03)
[2018-12-18 09:47] LABS: Basophils % (A) 0 %; Eosinophils # (A) 0.2 k/uL (0-0.7); Eosinophils % (A) 3 %; HCT 43.2 % (39.0-53.0); HGB 13.7 gm/dL (13.0-17.5); Lymphocytes % (A) 19 %; MCH 29.4 pg (25.0-35.0); MCHC 31.6 g/dL (31.0-37.0); MCV 93.1 fL (80.0-100.0); Monocytes # (A) 0.3 k/uL (0-1.0); Monocytes % (A) 6 %; Neutrophils # (A) 3.7 k/uL (1.3-7.7); Neutrophils % (A) 69 %; Platelet Count 190 k/uL (150-450); RBC 4.64 m/uL (4.30-5.90); RDW 14.7 % (11.5-15.5); WBC 5.4 k/uL (3.8-10.6)
[2018-12-18 09:53] LABS: INR 1.6 (<1.2); Prothrombin Time 16.3 sec (9.0-12.0)
[2018-12-18 09:54] LABS: Albumin 3.9 g/dL (3.5-5.0); Calcium 9.1 mg/dL (8.4-10.2); Potassium 4.3 mmol/L (3.5-5.1); Total Bilirubin 0.4 mg/dL (0.2-1.3); Total Protein 6.2 g/dL (6.3-8.2)
[2018-12-18] MEDS: IPRATROPIUM 0.5 MG/2.5 ML NEBU INHALATION SCH ×4 (09:54→22:20)
[2018-12-18] MEDS: SYMBICORT 160-4.5 MCG INHALER INHALATION SCH ×2 (09:54→22:20)
[2018-12-18] MEDS ORDERED: BACITRACIN 500 UNIT/GM OINT 28.4 GM TUBE TOPICAL PRN (11:19)
[2018-12-18] MEDS ORDERED: POLYETHYLENE GLYCOL 3350 17 GM POWD.PACK PO STA (12:21)
--- NOTE | 2018-12-18 12:23 | P.HP ---
Psychiatric H&P - . H&P Date: 12/18/18 History & Physical: Allergies Allergy/AdvReac Type Severity Reaction Status Date / Time No Known Allergies Allergy Verified 12/17/18 14:49 Vital Signs Temp 97.8 F 12/18/18 04:31 Pulse 80 12/18/18 10:05 Resp 16 12/18/18 04:31 BP 155/80 12/18/18 04:31 Pulse Ox 95 12/18/18 00:19 Intake & Output 12/17/18 12/18/18 12/18/18 18:59 06:59 18:59 Weight 93.894 kg Laboratory Last Values WBC 5.4 k/uL (3.8-10.6) 12/18/18 09:12 RBC 4.64 m/uL (4.30-5.90) 12/18/18 09:12 Hgb 13.7 gm/dL (13.0-17.5) 12/18/18 09:12 Hct 43.2 % (39.0-53.0) 12/18/18 09:12 MCV 93.1 fL (80.0-100.0) 12/18/18 09:12 MCH 29.4 pg (25.0-35.0) 12/18/18 09:12 MCHC 31.6 g/dL (31.0-37.0) 12/18/18 09:12 RDW 14.7 % (11.5-15.5) 12/18/18 09:12 Plt Count 190 k/uL (150-450) 12/18/18 09:12 Neutrophils % 69 % 12/18/18 09:12 Lymphocytes % 19 % 12/18/18 09:12 Monocytes % 6 % 12/18/18 09:12 Eosinophils % 3 % 12/18/18 09:12 Basophils % 0 % 12/18/18 09:12 Neutrophils # 3.7 k/uL (1.3-7.7) 12/18/18 09:12 Lymphocytes # 1.0 k/uL (1.0-4.8) 12/18/18 09:12 Monocytes # 0.3 k/uL (0-1.0) 12/18/18 09:12 Eosinophils # 0.2 k/uL (0-0.7) 12/18/18 09:12 Basophils # 0.0 k/uL (0-0.2) 12/18/18 09:12 PT 16.3 sec (9.0-12.0) H 12/18/18 09:12 INR 1.6 (<1.2) H 12/18/18 09:12 Sodium 142 mmol/L (137-145) 12/18/18 09:12 Potassium 4.3 mmol/L (3.5-5.1) 12/18/18 09:12 Chloride 101 mmol/L (98-107) 12/18/18 09:12 Carbon Dioxide 35 mmol/L (22-30) H 12/18/18 09:12 Anion Gap 6 mmol/L 12/18/18 09:12 BUN 29 mg/dL (9-20) H 12/18/18 09:12 Creatinine 1.07 mg/dL (0.66-1.25) 12/18/18 09:12 Est GFR (CKD-EPI)AfAm 83 (>60 ml/min/1.73 sqM) 12/18/18 09:12 Est GFR (CKD-EPI)NonAf 72 (>60 ml/min/1.73 sqM) 12/18/18 09:12 Glucose 164 mg/dL (74-99) H 12/18/18 09:12 POC Glucose (mg/dL) 79 mg/dL (75-99) 12/18/18 05:38 POC Glu Marketing Production Manager Danitza Nieves 12/18/18 05:38 Calcium 9.1 mg/dL (8.4-10.2) 12/18/18 09:12 Total Bilirubin 0.4 mg/dL (0.2-1.3) 12/18/18 09:12 AST 129 U/L (17-59) H 12/18/18 09:12 ALT 39 U/L (21-72) 12/18/18 09:12 Alkaline Phosphatase 80 U/L (38-126) 12/18/18 09:12 Total Protein 6.2 g/dL (6.3-8.2) L 12/18/18 09:12 Albumin 3.9 g/dL (3.5-5.0) 12/18/18 09:12 Triglycerides 248 mg/dL (<150) H 12/18/18 09:12 Cholesterol 185 mg/dL (<200) 12/18/18 09:12 LDL Cholesterol, Calc 97 mg/dL (0-99) 12/18/18 09:12 HDL Cholesterol 38 mg/dL (40-60) L 12/18/18 09:12 TSH 1.710 mIU/L (0.465-4.680) 12/18/18 09:12 Urine Color Yellow 12/17/18 13:45 Urine Appearance Clear (Clear) 12/17/18 13:45 Urine pH 5.5 (5.0-8.0) 12/17/18 13:45 Ur Specific [place] 1.019 (1.001-1.035) 12/17/18 13:45 Urine Protein Negative (Negative) 12/17/18 13:45 Urine Glucose (UA) Negative (Negative) 12/17/18 13:45 Urine Ketones Negative (Negative) 12/17/18 13:45 Urine Blood Negative (Negative) 12/17/18 13:45 Urine Nitrite Negative (Negative) 12/17/18 13:45 Urine Bilirubin Negative (Negative) 12/17/18 13:45 Urine Urobilinogen <2.0 mg/dL (<2.0) 12/17/18 13:45 Ur Leukocyte Esterase Negative (Negative) 12/17/18 13:45 Urine Opiates Screen Not Detected (NotDetected) 12/17/18 13:45 Ur Oxycodone Screen Not Detected (NotDetected) 12/17/18 13:45 Urine Methadone Screen Not Detected (NotDetected) 12/17/18 13:45 Ur Propoxyphene Screen Not Detected (NotDetected) 12/17/18 13:45 Ur Barbiturates Screen Not Detected (NotDetected) 12/17/18 13:45 Carbamazepine 6.5 ug/mL 12/17/18 20:20 U Tricyclic Antidepress Detected (NotDetected) H 12/17/18 13:45 Ur Phencyclidine Scrn Not Detected (NotDetected) 12/17/18 13:45 Ur Amphetamines Screen Not Detected (NotDetected) 12/17/18 13:45 U Methamphetamines Scrn Not Detected (NotDetected) 12/17/18 13:45 U Benzodiazepines Scrn Not Detected (NotDetected) 12/17/18 13:45 Urine Cocaine Screen Not Detected (NotDetected) 12/17/18 13:45 U Marijuana (THC) Screen Not Detected (NotDetected) 12/17/18 13:45 Assessment and Plan (1) Bipolar disorder Narrative/Plan: 60-year-old male presents emergency Department with chief complaint of needing psychiatric evaluation. Patient states that he does have underlying bipolar disorder and states that he has been in out of different living environment recently. He states that he returns as own place states that he having infection in which she was admitted for. Patient states he has been stable states that he was discharged from our with after treatment. Patient states that he went home to live with his daughter states that he's been having trouble bear because the neighbor had an argument and felt that he did not long in the [place] and called his doctor. Patient states he knows he has Bipolar disorder and states that he talks a lot but states he's not suicidal or homicidal. Patient states that his daughter told him that he may need another evaluation for psych problems. pt resting in room, watching television. pt states he is here because "I carola got into it with my neighbor. My doctor told me to walk. I forgot my phone, so I left my walker in the driveway and went in to get it. The walker rolled down the driveway and was in the road and a lady saw it and was getting upset because it was in the road. Then she said that she didn't know me and she didn't know my daughter or son-in-law. And she said I was a thief. Then the lady called the nurse who visits and said there was a mentally ill person living there." pt presents with pressured speech and states, "I'm manic. I just need something to slow me down." pt states that his daughter, Julisa, is who makes decisions regarding his care and requests that radio news writer speak with daughter. Neonatal Specialist called Julisa and was informed that pt has been manic since Monday. Per Julisa, pt has not slept and has been on the phone "06/03." Julisa also reports that pt has not been complying with requests given by herself or the visiting nurse and that pt talked to his granddaughter today about pedophiles. - Related Data Home Medications Medication Instructions Recorded Confirmed Aspirin 81 mg PO HS 12/08/17 12/17/18 Atorvastatin [Lipitor] 80 mg PO HS 12/08/17 12/17/18 Benztropine Mesylate [Cogentin] 1 mg PO DAILY 12/08/17 12/17/18 Carvedilol [Coreg] 12.5 mg PO DAILY 12/08/17 12/17/18 Finasteride [Proscar] 5 mg PO DAILY 12/08/17 12/17/18 Furosemide [Lasix] 40 mg PO DAILY 12/08/17 12/17/18 Glimepiride [Amaryl] 2 mg PO AC-BID 12/08/17 12/17/18 Isosorbide Mononitrate ER [Imdur] 60 mg PO DAILY 12/08/17 12/17/18 Oxybutynin Chloride [Ditropan] 5 mg PO DAILY 12/08/17 12/17/18 Pantoprazole [Protonix] 40 mg PO QAM 12/08/17 12/17/18 Potassium Chloride [Klor-Con 20] 20 meq PO DAILY 12/08/17 12/17/18 Tamsulosin [Flomax] 0.4 mg PO DAILY 12/08/17 12/17/18 Warfarin [Coumadin] 5 mg PO DAILY 12/08/17 12/17/18 carBAMazepine [TEGretol XR] 200 mg PO Q12H 12/08/17 12/17/18 hydrALAZINE HCL [Apresoline] 50 mg PO TID 12/08/17 12/17/18 QUEtiapine FUMARATE [SEROquel] 200 mg PO HS 11/13/18 12/17/18 Budesonide-Formot 160-4.5 Mcg 2 puff INHALATION RT-BID 12/17/18 12/17/18 [Symbicort 160-4.5 Mcg Inhaler] Previous Rx's Medication Instructions Recorded Albuterol Inhaler [Ventolin Hfa 1 - 2 puff INHALATION RT-Q6H PRN 11/16/18 Inhaler] #1 inhaler Tiotropium 18 Mcg/Puff [Spiriva] 1 puff INHALATION DAILY #1 inhaler 11/16/18 Allergies Allergy/AdvReac Type Severity Reaction Status Date / Time No Known Allergies Allergy Verified 12/17/18 14:49 Past Medical History Past Medical History: Heart Failure, COPD, Diabetes Mellitus, Deep Vein Thrombosis (DVT), Hyperlipidemia, Hypertension, Memory Impairment, Osteoarthritis (OA), Pneumonia, Pulmonary Embolus (PE), Sleep Apnea/CPAP/BIPAP Additional Past Medical History / Comment(s): DVT and PE - pt unsure of how long ago - he is on coumadin History of Any Multi-Drug Resistant Organisms: MRSA Date of last positivie culture/infection: unsure thinks 2-3 years ago MDRO Source:: lungs/legs Past Surgical History: Heart Catheterization With Stent Additional Past Surgical History / Comment(s): 1 stent - pt unsure of exact year thinks over 5 yrs ago - pt states done at [facility] Past Anesthesia/Blood Transfusion Reactions: No Reported Reaction Date of Last Stent Placement:: unsure Past Psychological History: Anxiety, Bipolar, Depression Smoking Status: Former smoker Past Alcohol Use History: None Reported Past Drug Use History: None Reported - Past Family History Mother Family Medical History: Myocardial Infarction ([place]) Father Family Medical History: Renal Disease Additional Family Medical History / Comment(s): renal disease Mental Status Examination - The patient presents alert, pleasant, and cooperative. There calmly seated without any agitated behavior. [He] reports that [his] mood is good. Affect is congruent and euthymic. [He] deny having any suicidal or homicidal ideation intent or plan. [He] denies any auditory or visual hallucinations. There is no evidence of any delusional thought content. [His] thought process is linear and goal-directed. [His] speech is fluent and nonpressured. [His] memory and concentration is grossly intact for the purposes of this session. Admitting Diagnosis: [bipolar] history of venous thromboembolic Patient chronically on Coumadin Currently INR is subtherapeutic Coumadin to be dosed by pharmacy to achieve therapeutic range of INR 2-3 Chronic conditions Diabetes mellitus, continue home meds monitor blood sugar History COPD on home oxygen, continue with inhalers History of CAD continue with home meds BPH continue home meds DVT prophylaxis patient is already on Coumadin due to history of venous thromboembolism Patient Strengths - Steady employment/financial stability: [x] Housing stability: [x] Able to vocalize needs: [x] Values and traditions: [x] Motivation, determination, readiness for change: [x] Patient Limitations: [medication, non-compliance, Initial Plan of Care: [He is admitted on a formal voluntary to [address] [place] [address]. To be evaluated by medicine, psychiatry, nursing staff, social work and occupational therapy. He'll be integrated guzman milieu therapeutic environment whereby he'll be expected to interact in a positive manner go to groups and take his medications as indicated. His Tegretol for mood stability will be elevated to 300 mg twice a day, will add 25 mg twice a day of Seroquel and maintain at bedtime dose of 200 mg.] Estimated Length of Stay: [5 days] Initial Discharge Plan: [home, referred to therapist Prognosis: [Fair Justification for Inpatient Hospitalization - [ delusions, agitation, anxiety, depression resulting in significant loss of functioning.] [Dangerous to self, others, or property with need for controlled environment.] [Emotional or behavioral conditions and complications requiring 24 hour medical and nursing care.] [Need for special drug therapy, or other therapeutic program requiring continuous hospitalization.] [Failure of social or occupational functioning.] Current Visit: Yes Status: Acute Code(s): F31.9 - BIPOLAR DISORDER, UNSPECIFIED SNOMED Code(s): 59519231 Time with Patient: Greater than 30
[2018-12-18] MEDS ORDERED: WARFARIN 5 MG TAB PO SCH (18:00)
[2018-12-18] MEDS: ATORVASTATIN 80 MG TAB PO SCH (21:19)
[2018-12-18] MEDS: ASPIRIN 81 MG PO SCH (21:19)
[2018-12-18] MEDS: QUEtiapine 200 MG TAB PO SCH (21:19)
[2018-12-18] MEDS: QUEtiapine 25 MG TAB PO SCH (21:19)
[2018-12-18] MEDS: carBAMazepine 100 MG TAB.ER.12H PO SCH (21:19)
[2018-12-19 06:00] LABS: Glucose,Whole Blood 154 mg/dL (75-99)
[2018-12-19] MEDS: BENZTROPINE MESYLATE 1 MG TAB PO SCH (09:05)
[2018-12-19] MEDS: carBAMazepine 100 MG TAB.ER.12H PO SCH ×2 (09:05→21:25)
[2018-12-19] MEDS: SYMBICORT 160-4.5 MCG INHALER INHALATION SCH ×2 (09:06→18:49)
[2018-12-19] MEDS: FUROSEMIDE 40 MG TAB PO SCH (09:06)
[2018-12-19] MEDS: FINASTERIDE 5 MG TAB PO SCH (09:06)
[2018-12-19] MEDS: IPRATROPIUM 0.5 MG/2.5 ML NEBU INHALATION SCH ×4 (09:06→18:51)
[2018-12-19] MEDS: ISOSORBIDE MONONITRATE ER 60 MG TAB.ER.24H PO SCH (09:07)
[2018-12-19] MEDS: PANTOPRAZOLE 40 MG TABLET PO SCH (09:07)
[2018-12-19] MEDS: CARVEDILOL 12.5 MG TAB PO SCH (09:07)
[2018-12-19] MEDS: POTASSIUM CHLORIDE ER 20 MEQ TAB.ER PO SCH (09:07)
[2018-12-19] MEDS: QUEtiapine 25 MG TAB PO SCH ×2 (09:07→21:25)
[2018-12-19] MEDS: OXYBUTYNIN CHLORIDE 5 MG TAB PO SCH (09:07)
[2018-12-19] MEDS: hydrALAZINE HCL 50 MG TAB PO SCH ×3 (09:07→21:25)
[2018-12-19] MEDS: TAMSULOSIN 0.4 MG CAP.ER.24H PO SCH (09:07)
[2018-12-19] MEDS: GLIMEPIRIDE 2 MG TAB PO SCH ×2 (09:07→16:32)
[2018-12-19] MEDS: POLYETHYLENE GLYCOL 3350 17 GM POWD.PACK PO SCH (09:42)
[2018-12-19 11:34] LABS: INR 1.3 (<1.2); Prothrombin Time 13.5 sec (9.0-12.0)
--- NOTE | 2018-12-19 11:51 | P.PN ---
Subjective Progress Note Date: 12/19/18 Principal diagnosis: Bipolar depressed 12/19/2018: Chart reviewed and discussed in team interviewed the patient. Patient was interviewed and he remains depressed hopeless helpless and overwhelmed due to the fact that he has no place to live and he has no control of his money at the current time. He remains anxious poor sleep fearful and denies any auditory or visual hallucinations. Objective - Vital Signs Vital signs: Vital Signs Temp 97.7 F 12/19/18 06:31 Pulse 74 12/19/18 06:31 Resp 18 12/19/18 06:31 BP 124/60 12/19/18 06:31 Pulse Ox 94 L 12/19/18 06:31 - Labs CBC & Chem 7: 12/18/18 09:12 12/18/18 09:12 Labs: Abnormal Lab Results - Last 24 Hours (Table) 12/19/18 12/19/18 Range/Units 05:52 10:30 PT 13.5 H (9.0-12.0) sec INR 1.3 H (<1.2) POC Glucose (mg/dL) 154 H (75-99) mg/dL Assessment and Plan (1) Bipolar disorder Narrative/Plan: 60-year-old male presents emergency Department with chief complaint of needing psychiatric evaluation. Patient states that he does have underlying bipolar d isorder and states that he has been in out of different living environment recently. He states that he returns as own place states that he having infection in which she was admitted for. Patient states he has been stable states that he was discharged from our with after treatment. Patient states that he went home to live with his daughter states that he's been having trouble bear because the neighbor had an argument and felt that he did not long in the area and called his doctor. Patient states he knows he has Bipolar disorder and states that he talks a lot but states he's not suicidal or homicidal. Patient states that his daughter told him that he may need another evaluation for psych problems. pt resting in room, watching television. pt states he is here because "I acrola got into it with my neighbor. My doctor told me to walk. I forgot my phone, so I left my walker in the driveway and went in to get it. The walker rolled down the driveway and was in the road and a lady saw it and was getting upset because it was in the road. Then she said that she didn't know me and she didn't know my daughter or son-in-law. And she said I was a thief. Then the lady called the nurse who visits and said there was a mentally ill person living there." pt presents with pressured speech and states, "I'm manic. I just need something to slow me down." pt states that his daughter, Julisa, is who makes decisions regarding his care and requests that clinical writer speak with daughter. Senior Manufacturing Supervisor called Julisa and was informed that pt has been manic since Monday. Per Julisa, pt has not slept and has been on the phone "06/03." Julisa also reports that pt has not been complying with requests given by herself or the visiting nurse and that pt talked to his granddaughter today about pedophiles. Mental Status Examination - The patient presents alert, pleasant, and cooperative with pressured speech. There calmly seated without any agitated behavior. [He] reports that [his] mood is depressed. Affect is congruent. [He] deny having any suicidal or homicidal ideation intent or plan. [He] denies any auditory or visual hallucinations. There is no evidence of any delusional thought content. [His] thought process is linear and goal-directed but can be tangential and circumstantial at times. [His] speech is fluent and pressured. [His] memory and concentration is grossly intact for the purposes of this session. Admitting Diagnosis: [bipolar] history of venous thromboembolic Patient chronically on Coumadin Coumadin to be dosed by pharmacy to achieve therapeutic range of INR 2-3 Chronic conditions Diabetes mellitus, continue home meds monitor blood sugar History COPD on home oxygen, continue with inhalers History of CAD continue with home meds BPH continue home meds DVT prophylaxis patient is already on Coumadin due to history of venous thromb oembolism Patient Limitations: [medication, non-compliance, Initial Plan of Care: [He is admitted on a formal voluntary to [address] [place] [address]. To be evaluated by medicine, psychiatry, nursing staff, social work and occupational therapy. He'll be integrated guzman milieu therapeutic environment whereby he'll be expected to interact in a positive manner go to groups and take his medications as indicated. His Tegretol for mood stability will be elevated to 300 mg twice a day, will add 25 mg twice a day of Seroquel and maintain at bedtime dose of 200 mg. 12/19/2018: Chart reviewed and discussed with nursing staff and review of his sleep now he is getting 7 hours at night. He remains on 15 minute checks on the unit. Appears that the increase of Tegretol and addition of Seroquel during the daytime has helped his vaibhav stabilized. We'll obtain a Tegretol level on 12/20/2018. We'll follow observed for further titration meds and work on possible discharge planning.] Current Visit: Yes Status: Acute Priority: Medium Code(s): F31.9 - BIPOLAR DISORDER, UNSPECIFIED SNOMED Code(s): 75400963 Time with Patient: Less than 30
[2018-12-19] MEDS: ALBUTEROL INHALER 60 PUFF/8 GM INHALER INHALATION PRN ×3 (13:41→23:42)
[2018-12-19] MEDS ORDERED: WARFARIN 10 MG TAB PO ONE (18:00)
[2018-12-19] MEDS: ACETAMINOPHEN TAB 325 MG TAB PO PRN (18:44)
[2018-12-19] MEDS: ASPIRIN 81 MG PO SCH (21:25)
[2018-12-19] MEDS: QUEtiapine 200 MG TAB PO SCH (21:25)
[2018-12-19] MEDS: ATORVASTATIN 80 MG TAB PO SCH (21:25)
[2018-12-19] MEDS ORDERED: IBUPROFEN 600 MG TAB PO PRN (23:11)
[2018-12-19] MEDS ORDERED: IBUPROFEN 600 MG TAB PO STA (23:11)
[2018-12-20 06:54] LABS: Glucose,Whole Blood 70 mg/dL (75-99)
[2018-12-20 07:14] LABS: Glucose,Whole Blood 112 mg/dL (75-99)
[2018-12-20] MEDS: GLIMEPIRIDE 2 MG TAB PO SCH ×2 (08:33→17:36)
[2018-12-20] MEDS: BENZTROPINE MESYLATE 1 MG TAB PO SCH (08:33)
[2018-12-20] MEDS: CARVEDILOL 12.5 MG TAB PO SCH (08:33)
[2018-12-20] MEDS: carBAMazepine 100 MG TAB.ER.12H PO SCH ×2 (08:33→21:09)
[2018-12-20] MEDS: FINASTERIDE 5 MG TAB PO SCH (08:34)
[2018-12-20] MEDS: FUROSEMIDE 40 MG TAB PO SCH (08:34)
[2018-12-20] MEDS: POTASSIUM CHLORIDE ER 20 MEQ TAB.ER PO SCH (08:34)
[2018-12-20] MEDS: hydrALAZINE HCL 50 MG TAB PO SCH ×3 (08:34→21:10)
[2018-12-20] MEDS: TAMSULOSIN 0.4 MG CAP.ER.24H PO SCH (08:35)
[2018-12-20] MEDS: OXYBUTYNIN CHLORIDE 5 MG TAB PO SCH (08:35)
[2018-12-20] MEDS: PANTOPRAZOLE 40 MG TABLET PO SCH (08:35)
[2018-12-20] MEDS: QUEtiapine 25 MG TAB PO SCH ×2 (08:35→21:09)
[2018-12-20] MEDS: ISOSORBIDE MONONITRATE ER 60 MG TAB.ER.24H PO SCH (08:35)
[2018-12-20] MEDS: POLYETHYLENE GLYCOL 3350 17 GM POWD.PACK PO SCH (08:36)
[2018-12-20] MEDS: SYMBICORT 160-4.5 MCG INHALER INHALATION SCH ×2 (09:07→21:24)
[2018-12-20] MEDS: IPRATROPIUM 0.5 MG/2.5 ML NEBU INHALATION SCH ×3 (09:08→21:26)
[2018-12-20] MEDS: ALBUTEROL INHALER 60 PUFF/8 GM INHALER INHALATION PRN ×3 (09:08→21:24)
[2018-12-20 09:11] LABS: INR 1.4 (<1.2); Prothrombin Time 14.2 sec (9.0-12.0)
[2018-12-20 11:42] VITALS: BMI 33.4
--- NOTE | 2018-12-20 12:26 | P.PN ---
Subjective Progress Note Date: 12/20/18 Principal diagnosis: Bipolar depressed 12/19/2018: Chart reviewed and discussed in team interviewed the patient. Patient was interviewed and he remains depressed hopeless helpless and overwhelmed due to the fact that he has no place to live and he has no control of his money at the current time. He remains anxious poor sleep fearful and denies any auditory or visual hallucinations. 12/20/2018: Chart reviewed, discussed with her seeing staff and discussed in team. Patient was interviewed and an remains less depressed still hopeless he lpless and overwhelmed by the fact that he has no place to live and no money. He did have improved sleep. He denies any auditory or visual hallucinations. Objective - Vital Signs Vital signs: Vital Signs Temp 97.2 F L 12/20/18 11:23 Pulse 79 12/20/18 11:23 Resp 18 12/20/18 11:23 BP 188/97 12/20/18 11:23 Pulse Ox 90 L 12/20/18 11:23 - Labs CBC & Chem 7: 12/18/18 09:12 12/18/18 09:12 Labs: Abnormal Lab Results - Last 24 Hours (Table) 12/20/18 12/20/18 12/20/18 Range/Units 06:38 07:12 08:28 PT 14.2 H (9.0-12.0) sec INR 1.4 H (<1.2) POC Glucose (mg/dL) 70 L 112 H (75-99) mg/dL Assessment and Plan (1) Bipolar disorder Narrative/Plan: 60-year-old male presents emergency Department with chief complaint of needing psychiatric evaluation. Patient states that he does have underlying bipolar disorder and states that he has been in out of different living environment recently. He states that he returns as own place states that he having infection in which she was admitted for. Patient states he has been stable states that he was discharged from our with after treatment. Patient states that he went home to live with his daughter states that he's been having trouble bear because the neighbor had an argument and felt that he did not long in the area and called his doctor. Patient states he knows he has Bipolar disorder and states that he talks a lot but states he's not suicidal or homicidal. Patient states that his daughter told him that he may need another evaluation for psych problems. pt resting in room, watching television. pt states he is here because "I carola got into it with my neighbor. My doctor told me to walk. I forgot my phone, so I left my walker in the driveway and went in to get it. The walker rolled down the driveway and was in the road and a lady saw it and was getting upset because it was in the road. Then she said that she didn't know me and she didn't know my daughter or son-in-law. And she said I was a thief. Then the lady called the nurse who visits and said there was a mentally ill person living there." pt presents with pressured speech and states, "I'm manic. I just need something to slow me down." pt states that his daughter, Julisa, is who makes decisions regarding his care and requests that rfp writer speak with daughter. Hims Manager called Julisa and was informed that pt has been manic since Monday. Per Julisa, pt has not slept and has been on the phone "06/03." Julisa also reports that pt has not been complying with requests given by herself or the visiting nurse and that pt talked to his granddaughter today about pedophiles. Mental Status Examination - The patient presents alert, pleasant, and cooperative with pressured speech. There calmly seated without any agitated behavior. [He] reports that [his] mood is depressed. Affect is congruent. [He] deny having any suicidal or homicidal ideation intent or plan. [He] denies any auditory or visual hallucinations. There is no evidence of any delusional thought content. [His] thought process is linear and goal-directed but can be tangential and circumstantial at times. [His] speech is fluent and pressured. [His] memory and concentration is grossly intact for the purposes of this session. Admitting Diagnosis: [bipolar] history of venous thromboembolic Patient chronically on Coumadin Coumadin to be dosed by pharmacy to achieve therapeutic range of INR 2-3 Chronic conditions Diabetes mellitus, continue home meds monitor blood sugar History COPD on home oxygen, continue with inhalers History of CAD continue with home meds BPH continue home meds DVT prophylaxis patient is already on Coumadin due to history of venous thromboembolism Patient Limitations: [medication, non-compliance, Initial Plan of Care: [He is admitted on a formal [facility] [place]. To be evaluated by medicine, psychiatry, nursing staff, social work and occupational therapy. He'll be integrated guzman milieu therapeutic environment whereby he'll be expected to interact in a positive manner go to groups and take his medications as indicated. His Tegretol for mood stability will be elevated to 300 mg twice a day, will add 25 mg twice a day of Seroquel and maintain at bedtime dose of 200 mg. 12/19/2018: Chart reviewed and discussed with nursing staff and review of his sleep now he is getting 7 hours at night. He remains on 15 minute checks on the unit. Appears that the increase of Tegretol and addition of Seroquel during the daytime has helped his vaibhav stabilized. We'll obtain a Tegretol level on 12/20/2018. We'll follow observed for further titration meds and work on possible discharge planning. 12/20/2018: Chart reviewed and discussed with nursing staff. He is obtaining 7 hours of sleep. He remains on 15 minute checks on the unit. Appears being stabilized on the Tegretol and Seroquel at the present time. No further medication adjustment at this time we'll follow observed for symptoms increased symptoms of agitation and anxiety or cycling mood] Current Visit: Yes Status: Acute Priority: Medium Code(s): F31.9 - BIPOLAR DISORDER, UNSPECIFIED SNOMED Code(s): 38928699 Time with Patient: Less than 30
[2018-12-20] MEDS ORDERED: WARFARIN 10 MG TAB PO ONE (18:00)
[2018-12-20] MEDS: QUEtiapine 200 MG TAB PO SCH (21:09)
[2018-12-20] MEDS: ATORVASTATIN 80 MG TAB PO SCH (21:09)
[2018-12-20] MEDS: ASPIRIN 81 MG PO SCH (21:10)
[2018-12-20] MEDS: ACETAMINOPHEN TAB 325 MG TAB PO PRN (22:21)
[2018-12-21 06:40] LABS: Glucose,Whole Blood 109 mg/dL (75-99)
[2018-12-21 06:45] VITALS: RESP 15; TEMP 98
[2018-12-21] MEDS: SYMBICORT 160-4.5 MCG INHALER INHALATION SCH (08:12)
[2018-12-21] MEDS: ALBUTEROL INHALER 60 PUFF/8 GM INHALER INHALATION PRN ×2 (08:12→12:35)
[2018-12-21] MEDS: IPRATROPIUM 0.5 MG/2.5 ML NEBU INHALATION SCH ×2 (08:14→12:36)
[2018-12-21] MEDS: POLYETHYLENE GLYCOL 3350 17 GM POWD.PACK PO SCH (09:04)
[2018-12-21] MEDS: PANTOPRAZOLE 40 MG TABLET PO SCH (09:06)
[2018-12-21] MEDS: CARVEDILOL 12.5 MG TAB PO SCH (09:06)
[2018-12-21] MEDS: hydrALAZINE HCL 50 MG TAB PO SCH (09:06)
[2018-12-21] MEDS: POTASSIUM CHLORIDE ER 20 MEQ TAB.ER PO SCH (09:06)
[2018-12-21] MEDS: FINASTERIDE 5 MG TAB PO SCH (09:06)
[2018-12-21] MEDS: GLIMEPIRIDE 2 MG TAB PO SCH (09:06)
[2018-12-21] MEDS: ISOSORBIDE MONONITRATE ER 60 MG TAB.ER.24H PO SCH (09:06)
[2018-12-21] MEDS: QUEtiapine 25 MG TAB PO SCH (09:06)
[2018-12-21] MEDS: TAMSULOSIN 0.4 MG CAP.ER.24H PO SCH (09:06)
[2018-12-21] MEDS: BENZTROPINE MESYLATE 1 MG TAB PO SCH (09:06)
[2018-12-21] MEDS: FUROSEMIDE 40 MG TAB PO SCH (09:07)
[2018-12-21] MEDS: carBAMazepine 100 MG TAB.ER.12H PO SCH (09:07)
[2018-12-21] MEDS: OXYBUTYNIN CHLORIDE 5 MG TAB PO SCH (09:07)
[2018-12-21 10:04] LABS: INR 2.1 (<1.2); Prothrombin Time 20.7 sec (9.0-12.0)
[2018-12-21 11:07] VITALS: BP 144/85; PULSE 89
--- NOTE | 2018-12-21 11:14 | P.DS ---
Providers Date of admission: 12/17/18 18:31 Expected date of discharge: 12/21/18 Attending physician: Paulie Patel DO Consults: 12/17/18 19:34 Consult Physician Routine Consulting Provider: Ravi Diaz Consult Reason/Comments: H&P and medical Do you want consulting provider notified?: Yes Primary care physician: Cintia Sarmiento - Discharge Diagnosis(es) (1) Bipolar disorder Allergies Allergy/AdvReac Type Severity Reaction Status Date / Time No Known Allergies Allergy Verified 12/17/18 14:49 Vital Signs Temp 97.8 F 12/18/18 04:31 Pulse 80 12/18/18 10:05 Resp 16 12/18/18 04:31 BP 155/80 12/18/18 04:31 Pulse Ox 95 12/18/18 00:19 Intake & Output 12/17/18 12/18/18 12/18/18 18:59 06:59 18:59 Weight 93.894 kg Laboratory Last Values WBC 5.4 k/uL (3.8-10.6) 12/18/18 09:12 RBC 4.64 m/uL (4.30-5.90) 12/18/18 09:12 Hgb 13.7 gm/dL (13.0-17.5) 12/18/18 09:12 Hct 43.2 % (39.0-53.0) 12/18/18 09:12 MCV 93.1 fL (80.0-100.0) 12/18/18 09:12 MCH 29.4 pg (25.0-35.0) 12/18/18 09:12 MCHC 31.6 g/dL (31.0-37.0) 12/18/18 09:12 RDW 14.7 % (11.5-15.5) 12/18/18 09:12 Plt Count 190 k/uL (150-450) 12/18/18 09:12 Neutrophils % 69 % 12/18/18 09:12 Lymphocytes % 19 % 12/18/18 09:12 Monocytes % 6 % 12/18/18 09:12 Eosinophils % 3 % 12/18/18 09:12 Basophils % 0 % 12/18/18 09:12 Neutrophils # 3.7 k/uL (1.3-7.7) 12/18/18 09:12 Lymphocytes # 1.0 k/uL (1.0-4.8) 12/18/18 09:12 Monocytes # 0.3 k/uL (0-1.0) 12/18/18 09:12 Eosinophils # 0.2 k/uL (0-0.7) 12/18/18 09:12 Basophils # 0.0 k/uL (0-0.2) 12/18/18 09:12 PT 16.3 sec (9.0-12.0) H 12/18/18 09:12 INR 1.6 (<1.2) H 12/18/18 09:12 Sodium 142 mmol/L (137-145) 12/18/18 09:12 Potassium 4.3 mmol/L (3.5-5.1) 12/18/18 09:12 Chloride 101 mmol/L (98-107) 12/18/18 09:12 Carbon Dioxide 35 mmol/L (22-30) H 12/18/18 09:12 Anion Gap 6 mmol/L 12/18/18 09:12 BUN 29 mg/dL (9-20) H 12/18/18 09:12 Creatinine 1.07 mg/dL (0.66-1.25) 12/18/18 09:12 Est GFR (CKD-EPI)AfAm 83 (>60 ml/min/1.73 sqM) 12/18/18 09:12 Est GFR (CKD-EPI)NonAf 72 (>60 ml/min/1.73 sqM) 12/18/18 09:12 Glucose 164 mg/dL (74-99) H 12/18/18 09:12 POC Glucose (mg/dL) 79 mg/dL (75-99) 12/18/18 05:38 POC Glu Clinic Office Manager Danitza Nieves 12/18/18 05:38 Calcium 9.1 mg/dL (8.4-10.2) 12/18/18 09:12 Total Bilirubin 0.4 mg/dL (0.2-1.3) 12/18/18 09:12 AST 129 U/L (17-59) H 12/18/18 09:12 ALT 39 U/L (21-72) 12/18/18 09:12 Alkaline Phosphatase 80 U/L (38-126) 12/18/18 09:12 Total Protein 6.2 g/dL (6.3-8.2) L 12/18/18 09:12 Albumin 3.9 g/dL (3.5-5.0) 12/18/18 09:12 Triglycerides 248 mg/dL (<150) H 12/18/18 09:12 Cholesterol 185 mg/dL (<200) 12/18/18 09:12 LDL Cholesterol, Calc 97 mg/dL (0-99) 12/18/18 09:12 HDL Cholesterol 38 mg/dL (40-60) L 12/18/18 09:12 TSH 1.710 mIU/L (0.465-4.680) 12/18/18 09:12 Urine Color Yellow 12/17/18 13:45 Urine Appearance Clear (Clear) 12/17/18 13:45 Urine pH 5.5 (5.0-8.0) 12/17/18 13:45 Ur Specific [place] 1.019 (1.001-1.035) 12/17/18 13:45 Urine Protein Negative (Negative) 12/17/18 13:45 Urine Glucose (UA) Negative (Negative) 12/17/18 13:45 Urine Ketones Negative (Negative) 12/17/18 13:45 Urine Blood Negative (Negative) 12/17/18 13:45 Urine Nitrite Negative (Negative) 12/17/18 13:45 Urine Bilirubin Negative (Negative) 12/17/18 13:45 Urine Urobilinogen <2.0 mg/dL (<2.0) 12/17/18 13:45 Ur Leukocyte Esterase Negative (Negative) 12/17/18 13:45 Urine Opiates Screen Not Detected (NotDetected) 12/17/18 13:45 Ur Oxycodone Screen Not Detected (NotDetected) 12/17/18 13:45 Urine Methadone Screen Not Detected (NotDetected) 12/17/18 13:45 Ur Propoxyphene Screen Not Detected (NotDetected) 12/17/18 13:45 Ur Barbiturates Screen Not Detected (NotDetected) 12/17/18 13:45 Carbamazepine 6.5 ug/mL 12/17/18 20:20 U Tricyclic Antidepress Detected (NotDetected) H 12/17/18 13:45 Ur Phencyclidine Scrn Not Detected (NotDetected) 12/17/18 13:45 Ur Amphetamines Screen Not Detected (NotDetected) 12/17/18 13:45 U Methamphetamines Scrn Not Detected (NotDetected) 12/17/18 13:45 U Benzodiazepines Scrn Not Detected (NotDetected) 12/17/18 13:45 Urine Cocaine Screen Not Detected (NotDetected) 12/17/18 13:45 U Marijuana (THC) Screen Not Detected (NotDetected) 12/17/18 13:45 Assessment and Plan (1) Bipolar disorder Narrative/Plan: 60-year-old male presents emergency Department with chief complaint of needing psychiatric evaluation. Patient states that he does have underlying bipolar disorder and states that he has been in out of different living environment recently. He states that he returns as own place states that he having infection in which she was admitted for. Patient states he has been stable states that he was discharged from our with after treatment. Patient states that he went home to live with his daughter states that he's been having trouble bear because the neighbor had an argument and felt that he did not long in the area and called his doctor. Patient states he knows he has Bipolar disorder and states that he talks a lot but states he's not suicidal or homicidal. Patient states that his daughter told him that he may need another evaluation for psych problems. pt resting in room, watching television. pt states he is here because "I carola got into it with my neighbor. My doctor told me to walk. I forgot my phone, so I left my walker in the driveway and went in to get it. The walker rolled down the driveway and was in the road and a lady saw it and was getting upset because it was in the road. Then she said that she didn't know me and she didn't know my daughter or son-in-law. And she said I was a thief. Then the lady called the nurse who visits and said there was a mentally ill person living there." pt presents with pressured speech and states, "I'm manic. I just need something to slow me down." pt states that his daughter, Julisa, is who makes decisions regarding his care and requests that public relations writer speak with daughter. Wastewater Operator called Julisa and was informed that pt has been manic since Monday. Per Julisa, pt has not slept and has been on the phone "06/03." Julisa also reports that pt has not been complying with requests given by herself or the visiting nurse and that pt talked to his granddaughter today about pedophiles. - Related Data Home Medications Medication Instructions Recorded Confirmed Aspirin 81 mg PO HS 12/08/17 12/17/18 Atorvastatin [Lipitor] 80 mg PO HS 12/08/17 12/17/18 Benztropine Mesylate [Cogentin] 1 mg PO DAILY 12/08/17 12/17/18 Carvedilol [Coreg] 12.5 mg PO DAILY 12/08/17 12/17/18 Finasteride [Proscar] 5 mg PO DAILY 12/08/17 12/17/18 Furosemide [Lasix] 40 mg PO DAILY 12/08/17 12/17/18 Glimepiride [Amaryl] 2 mg PO AC-BID 12/08/17 12/17/18 Isosorbide Mononitrate ER [Imdur] 60 mg PO DAILY 12/08/17 12/17/18 Oxybutynin Chloride [Ditropan] 5 mg PO DAILY 12/08/17 12/17/18 Pantoprazole [Protonix] 40 mg PO QAM 12/08/17 12/17/18 Potassium Chloride [Klor-Con 20] 20 meq PO DAILY 12/08/17 12/17/18 Tamsulosin [Flomax] 0.4 mg PO DAILY 12/08/17 12/17/18 Warfarin [Coumadin] 5 mg PO DAILY 12/08/17 12/17/18 carBAMazepine [TEGretol XR] 200 mg PO Q12H 12/08/17 12/17/18 hydrALAZINE HCL [Apresoline] 50 mg PO TID 12/08/17 12/17/18 QUEtiapine FUMARATE [SEROquel] 200 mg PO HS 11/13/18 12/17/18 Budesonide-Formot 160-4.5 Mcg 2 puff INHALATION RT-BID 12/17/18 12/17/18 [Symbicort 160-4.5 Mcg Inhaler] Previous Rx's Medication Instructions Recorded Albuterol Inhaler [Ventolin Hfa 1 - 2 puff INHALATION RT-Q6H PRN 11/16/18 Inhaler] #1 inhaler Tiotropium 18 Mcg/Puff [Spiriva] 1 puff INHALATION DAILY #1 inhaler 11/16/18 Allergies Allergy/AdvReac Type Severity Reaction Status Date / Time No Known Allergies Allergy Verified 12/17/18 14:49 Past Medical History Past Medical History: Heart Failure, COPD, Diabetes Mellitus, Deep Vein Thrombosis (DVT), Hyperlipidemia, Hypertension, Memory Impairment, Osteoarthritis (OA), Pneumonia, Pulmonary Embolus (PE), Sleep Apnea/CPAP/BIPAP Additional Past Medical History / Comment(s): DVT and PE - pt unsure of how long ago - he is on coumadin History of Any Multi-Drug Resistant Organisms: MRSA Date of last positivie culture/infection: unsure thinks 2-3 years ago MDRO Source:: lungs/legs Past Surgical History: Heart Catheterization With Stent Additional Past Surgical History / Comment(s): 1 stent - pt unsure of exact year thinks over 5 yrs ago - pt states done at [facility] Past Anesthesia/Blood Transfusion Reactions: No Reported Reaction Date of Last Stent Placement:: unsure Past Psychological History: Anxiety, Bipolar, Depression Smoking Status: Former smoker Past Alcohol Use History: None Reported Past Drug Use History: None Reported - Past Family History Mother Family Medical History: Myocardial Infarction ([place]) Father Family Medical History: Renal Disease Additional Family Medical History / Comment(s): renal disease Mental Status Examination - The patient presents alert, pleasant, and cooperative. There calmly seated without any agitated behavior. [He] reports that [his] mood is good. Affect is congruent and euthymic. [He] deny having any suicidal or homicidal ideation intent or plan. [He] denies any auditory or visual hallucinations. There is no evidence of any delusional thought content. [His] thought process is linear and goal-directed. [His] speech is fluent and nonpressured. [His] memory and concentration is grossly intact for the purposes of this session. Admitting Diagnosis: [bipolar] history of venous thromboembolic Patient chronically on Coumadin Currently INR is subtherapeutic Coumadin to be dosed by pharmacy to achieve therapeutic range of INR 2-3 Chronic conditions Diabetes mellitus, continue home meds monitor blood sugar History COPD on home oxygen, continue with inhalers History of CAD continue with home meds BPH continue home meds DVT prophylaxis patient is already on Coumadin due to history of venous thromboembolism Current Visit: Yes Status: Acute Priority: Low Hospital Course: Plan of Care: [He is admitted on a formal voluntary to [address] [place] [address]. To be evaluated by medicine, psychiatry, nursing staff, social work and occupational therapy. He'll be integrated guzman milieu therapeutic environment whereby he'll be expected to interact in a positive manner go to groups and take his medications as indicated. His Tegretol for mood stability will be elevated to 300 mg twice a day, will add 25 mg twice a day of Seroquel and maintain at bedtime dose of 200 mg. 12/19/2018: Chart reviewed and discussed with nursing staff and review of his sleep now he is getting 7 hours at night. He remains on 15 minute checks on the unit. Appears that the increase of Tegretol and addition of Seroquel during the daytime has helped his vaibhav stabilized. We'll obtain a Tegretol level on 12/20/2018. We'll follow observed for further titration meds and work on possible discharge planning. 12/20/2018: Chart reviewed and discussed with nursing staff. He is obtaining 7 hours of sleep. He remains on 15 minute checks on the unit. Appears being stabilized on the Tegretol and Seroquel at the present time. No further medication adjustment at this time we'll follow observed for symptoms increased symptoms of agitation and anxiety or cycling mood Mental status examination time of discharge 12/21/2018 11:11 AM: The patient presents alert, pleasant, and cooperative. There calmly seated without any agitated behavior. [he] reports that [his] mood is good. Affect is congruent and euthymic. [he] deny having any suicidal or homicidal ideation intent or plan. [he] denies any auditory or visual hallucinations. There is no evidence of any delusional thought content. [His] thought process is linear and goal-directed. [His] speech is fluent and nonpressured. [His] memory and concentration is grossly intact for the purposes of this session. ] Patient Condition at Discharge: Stable Plan - Discharge Summary Discharge Rx Participant: Yes New Discharge Prescriptions: New Polyethylene Glycol 3350 [Miralax] 17 gm PO DAILY powd.pack QUEtiapine [SEROquel] 25 mg PO BID 30 Days #60 tab carBAMazepine [TEGretol XR] 300 mg PO BID 30 Days #180 tab.er.12h Continue Aspirin 81 mg PO HS Pantoprazole [Protonix] 40 mg PO QAM Glimepiride [Amaryl] 2 mg PO AC-BID 30 Days #60 tab hydrALAZINE HCL [Apresoline] 50 mg PO TID 30 Days #90 tab Benztropine Mesylate [Cogentin] 1 mg PO DAILY 30 Days #30 tab Carvedilol [Coreg] 12.5 mg PO DAILY 30 Days #30 tablet Warfarin [Coumadin] 5 mg PO DAILY 30 Days #30 tab Oxybutynin Chloride [Ditropan] 5 mg PO DAILY 30 Days #30 tab Tamsulosin [Flomax] 0.4 mg PO DAILY 30 Days #30 cap.er.24h Isosorbide Mononitrate ER [Imdur] 60 mg PO DAILY 30 Days #30 tab.er.24h Potassium Chloride [Klor-Con 20] 20 meq PO DAILY 30 Days #30 tab.er.prt Furosemide [Lasix] 40 mg PO DAILY 30 Days #30 tab Atorvastatin [Lipitor] 80 mg PO HS 30 Days #30 tab Finasteride [Proscar] 5 mg PO DAILY 30 Days #30 tab QUEtiapine FUMARATE [SEROquel] 200 mg PO HS 30 Days #30 tablet Tiotropium 18 Mcg/Puff [Spiriva] 1 puff INHALATION DAILY #1 inhaler Budesonide-Formot 160-4.5 Mcg [Symbicort 160-4.5 Mcg Inhaler] 2 puff INHALATION RT-BID 30 Days #1 puff Albuterol Inhaler [Ventolin Hfa Inhaler] 1 - 2 puff INHALATION RT-Q6H PRN #1 inhaler PRN Reason: Shortness Of Breath Discontinued carBAMazepine [TEGretol XR] 200 mg PO Q12H Discharge Medication List Aspirin 81 mg PO HS 12/08/17 [History] Pantoprazole [Protonix] 40 mg PO QAM 12/08/17 [History] Albuterol Inhaler [Ventolin Hfa Inhaler] 1 - 2 puff INHALATION RT-Q6H PRN #1 inhaler 12/21/18 [Rx] Atorvastatin [Lipitor] 80 mg PO HS 30 Days #30 tab 12/21/18 [Rx] Benztropine Mesylate [Cogentin] 1 mg PO DAILY 30 Days #30 tab 12/21/18 [Rx] Budesonide-Formot 160-4.5 Mcg [Symbicort 160-4.5 Mcg Inhaler] 2 puff INHALATION RT-BID 30 Days #1 puff 12/21/18 [Rx] Carvedilol [Coreg] 12.5 mg PO DAILY 30 Days #30 tablet 12/21/18 [Rx] Finasteride [Proscar] 5 mg PO DAILY 30 Days #30 tab 12/21/18 [Rx] Furosemide [Lasix] 40 mg PO DAILY 30 Days #30 tab 12/21/18 [Rx] Glimepiride [Amaryl] 2 mg PO AC-BID 30 Days #60 tab 12/21/18 [Rx] Isosorbide Mononitrate ER [Imdur] 60 mg PO DAILY 30 Days #30 tab.er.24h 12/21/18 [Rx] Oxybutynin Chloride [Ditropan] 5 mg PO DAILY 30 Days #30 tab 12/21/18 [Rx] Polyethylene Glycol 3350 [Miralax] 17 gm PO DAILY powd.pack 12/21/18 [Rx] Potassium Chloride [Klor-Con 20] 20 meq PO DAILY 30 Days #30 tab.er.prt 12/21/18 [Rx] QUEtiapine FUMARATE [SEROquel] 200 mg PO HS 30 Days #30 tablet 12/21/18 [Rx] QUEtiapine [SEROquel] 25 mg PO BID 30 Days #60 tab 12/21/18 [Rx] Tamsulosin [Flomax] 0.4 mg PO DAILY 30 Days #30 cap.er.24h 12/21/18 [Rx] Tiotropium 18 Mcg/Puff [Spiriva] 1 puff INHALATION DAILY #1 inhaler 12/21/18 [Rx] Warfarin [Coumadin] 5 mg PO DAILY 30 Days #30 tab 12/21/18 [Rx] carBAMazepine [TEGretol XR] 300 mg PO BID 30 Days #180 tab.er.12h 12/21/18 [Rx] hydrALAZINE HCL [Apresoline] 50 mg PO TID 30 Days #90 tab 12/21/18 [Rx] Follow up Appointment(s)/Referral(s): Cintia Sarmiento MD [Primary Care Provider] - 1-2 days Patient Instructions/Handouts: Bipolar Disorder (DC) Activity/Diet/Wound Care/Special Instructions: Activity and Diet as tolerated. Avoid the use of street drugs and alcohol. Take all medications as prescribed, when you are in need of refills contact your medical doctor or psychiatrist. Please go to all scheduled outpatient appointments for aftercare treatment. If symptoms return or worsen you can call the crisis line @ and/or return to the nearest emergency room for evaluation. Discharge Disposition: HOME SELF-CARE
[2018-12-21] MEDS ORDERED: WARFARIN 5 MG TAB PO ONE (18:00)
== END 2018-12-21 13:35 | disposition home or self-care (01) | DRG 885 ==
LOC: EC 14:23 → 3MHU 18:31
PROVIDERS: ADMIT Psychiatry & Neurology Psychiatry; ATTEND Psychiatry & Neurology Psychiatry
DX: F31.5 Bipolar disorder, current episode depressed, severe, with psychotic features (principal); E11.9 Type 2 diabetes mellitus without complications; E78.5 Hyperlipidemia, unspecified; F41.9 Anxiety disorder, unspecified; G47.30 Sleep apnea, unspecified; I11.0 Hypertensive heart disease with heart failure; I25.10 Atherosclerotic heart disease of native coronary artery without angina pectoris; I50.9 Heart failure, unspecified; J44.9 Chronic obstructive pulmonary disease, unspecified; N40.0 Benign prostatic hyperplasia without lower urinary tract symptoms; M19.90 Unspecified osteoarthritis, unspecified site; Z79.01 Long term (current) use of anticoagulants; Z79.51 Long term (current) use of inhaled steroids; Z79.82 Long term (current) use of aspirin; Z79.899 Other long term (current) drug therapy; Z79.84 Long term (current) use of oral hypoglycemic drugs; Z82.49 Family history of ischemic heart disease and other diseases of the circulatory system; Z86.711 Personal history of pulmonary embolism; Z86.718 Personal history of other venous thrombosis and embolism; Z87.891 Personal history of nicotine dependence; Z91.19 Patient's noncompliance with other medical treatment and regimen; Z99.89 Dependence on other enabling machines and devices; Z95.5 Presence of coronary angioplasty implant and graft; Z86.14 Personal history of Methicillin resistant Staphylococcus aureus infection; Z87.01 Personal history of pneumonia (recurrent); Z84.1 Family history of disorders of kidney and ureter; Z99.81 Dependence on supplemental oxygen
CPT/HCPCS: 80053; 80061; 80156; 80306; 81003; 82075; 83036; 84443; 85025; 85610; 93005; 94640; 99285